=== PATIENT | male | born 1955 | race Caucasian/White ===

== ENCOUNTER 2017-11-27 07:24 | Emergency (ER) | payer BC ==
--- NOTE | 2017-11-27 09:06 | RAD ---
INDICATION: Fell from standing and hit chin. Pain LEFT-sided chin. COMPARISON: No relevant prior exams available on the [facility] for comparison. TECHNIQUE: Multidetector CT base of the skull through mandible without contrast. Multiplanar reformation. REPORT: Dental hardware artifact degrades image quality. Soft tissue edema/infiltrative hematoma at the LEFT buccal region and superficial to the LEFT body and inferior margin of the mandible with a few foci of loculated hematoma measuring less than 1 mL in volume. Unremarkable orbital contents. The orbital and maxillary sinus margins, zygomatic arches, lamina papyracea, base of the maxilla, pterygoid plates, and nasal bones are intact. The mandible is intact. Normal temporal mandibular joint alignment. Clear paranasal sinuses and hypoplastic mastoid air spaces. IMPRESSION: Superficial soft tissue injury LEFT aspect of face and lower jaw. Negative for fracture.
--- NOTE | 2017-11-27 09:15 | RAD ---
INDICATION: Trauma. COMPARISON: Comparison is made with a prior PET/CT study from September 30, 2017. TECHNIQUE: Contiguous axial sections were obtained beginning above the C7 vertebra and scanning through the T12 vertebra. Images were reconstructed in the sagittal and coronal planes. FINDINGS: The vertebra are in normal alignment. There is a mild chronic compression fracture of the superior endplate of the T11 vertebral body. No acute fracture is seen. There is mild diffuse degenerative disc disease. No significant spinal canal narrowing is seen in the dorsal spine. There is moderate degenerative disc disease at the C5-C6 and C6-C7 levels which are partially visualized on this study with mild to moderate spinal canal narrowing at those levels. There are several left renal calculi measuring up to 5 mm in size. No hydronephrosis is seen. IMPRESSION: 1. NO EVIDENCE FOR ACUTE FRACTURE. 2. MILD CHRONIC COMPRESSION FRACTURE OF THE SUPERIOR ENDPLATE OF THE T11 VERTEBRAL BODY. 3. MILD TO MODERATE DEGENERATIVE DISC DISEASE. 4. MULTIPLE LEFT RENAL CALCULI.
--- NOTE | 2017-11-27 09:29 | RAD ---
Indication: Numbness in arms and legs post fall. History of multiple myeloma. Comparison: September 30, 2017 PET/CT and June 19, [address] Technique: Noncontrast CT lumbar sacral spine. Multiplanar reformation. Report: Normal diameter abdominal aorta and visualized common iliac arteries with atherosclerotic calcification. Small nonobstructing LEFT renal stones. Simple cortical cyst upper pole LEFT kidney. Negative for spondylolysis or spondylolisthesis at any level. Mild anterior column superior endplate compression deformity at the T11 vertebral body without conspicuous cortical disruption or gross trabecular interruption or impaction to indicate an acute fracture. The deformity is new compared with the 2016 CT. Deformity of the L5 vertebral body most prominent at the RIGHT margin with severe central depression of both the superior and inferior endplates as well as trabecular rarefaction and coarse vertical trabecula is unchanged compared with the 2016 exam. Areas of cortical rarefaction are fat density without suggestion of infiltrative soft tissue density tumor. The appearance is most suggestive of a chronic osseous hemangioma with associated pathologic fracture without change. 4.9 cm AP by 2.6 cm transverse by 4.4 cm cephalocaudal geographic relative hyperdense region at the RIGHT iliac bone adjacent to the sacroiliac joint corresponds with a smaller sclerotic lesion and top normal focus of FDG uptake on February 28, 2018 PET/CT. T12-L1: Unremarkable disc level for age without acquired spinal stenosis. L1-L2: Unremarkable disc level for age without acquired spinal stenosis. L2-L3: Annular disc bulge and facet ligamentous hypertrophic arthropathy results in mild associated central canal stenosis and mild bilateral foraminal stenosis without significant change. L3-L4: Mild annular disc bulge and posterior element facet ligamentous hypertrophic arthropathy results in mild acquired central canal stenosis and moderate bilateral foraminal stenosis without significant change. L4-L5: Annular disc bulge and posterior element facet ligamentous hypertrophic arthropathy results in moderate acquired central canal stenosis and moderate bilateral foraminal stenosis without significant change. L5-S1: Annular disc bulge and facet ligamentous hypertrophic arthropathy results in mild acquired central canal stenosis and severe bilateral foraminal stenosis without significant change. IMPRESSION: 1. Negative for acute lumbar sacral spine fracture or traumatic malalignment. 2. Mild anterior column superior endplate compression deformity at the T11 vertebral body without conspicuous cortical disruption or gross trabecular interruption or impaction to indicate an acute fracture. 3. 4.9 cm AP by 2.6 cm transverse by 4.4 cm cephalocaudal geographic relative hyperdense region at the RIGHT iliac bone adjacent to the sacroiliac joint corresponds with a smaller sclerotic lesion and top normal focus of FDG uptake on February 28, 2018 PET/CT. Consider a bone scan for further assessment. 4. Multilevel degenerative spondylosis and posterior element hypertrophic osteoarthritis with resulting acquired central canal and foraminal stenosis as described level by level without significant interval change compared with June 19, 2016 exam.
[2017-11-27 10:30] VITALS: BP 129/71
--- NOTE | 2017-11-27 11:45 | ED ---
Varun Palacios Thomas, scribed for Colin Espinosa MD on 11/27/17 at 0913 . Head Injury - HPI Summary HPI Summary: The patient is a 62 year old male who had an accidental fall from standing this morning. He fell and hit the left side of his chin on a cart. He complains of left-sided chin pain and swelling. The patient denies new-onset back pain. Past medical history includes multiple myeloma. - History Of Current Complaint Chief Complaint: EDFacialInjury Stated Complaint: FALL Time Seen by Provider: 11/27/17 07:42 Hx Obtained From: Patient Mechanism Of Injury: Fall From A Standing Position Onset/Duration: Started Days Ago, Still Present Onset of Pain: Immediate Severity Currently: Moderate Severity Initially: Moderate Pain Intensity: 5 Pain Scale Used: 0-10 Numeric Location of Head Injury: Other: - left-sided chin Alleviating Factor(s): Other: - Nothing Associated Signs And Symptoms: Other: - Left-sided chin pain, swelling; NEGATIVE : new-onset back pain - Allergies/Home Medications Allergies/Adverse Reactions: Allergies Allergy/AdvReac Type Severity Reaction Status Date / Time Penicillins Allergy Severe Hives Verified 10/23/17 07:59 PMH/Surg Hx/FS Hx/Imm Hx Endocrine/Hematology History: Reports: Hx Diabetes - CONTROLLED WITH DIET Denies: Hx Anticoagulant Therapy Cardiovascular History: Denies: Hx Cardiac Arrest, Hx Hypertension, Hx Myocardial Infarction, Hx Pacemaker/ICD Respiratory History: Denies: Hx Asthma, Hx Chronic Obstructive Pulmonary Disease (COPD) GI History: Reports: Other GI Disorders - hernia Denies: Hx Gastroesophageal Reflux Disease History: Denies: Hx Chronic Renal Failure, Hx Kidney Stones, Hx Renal Disease Musculoskeletal History: Reports: Other Musculoskeletal History - lumbar disc herniation Sensory History: Reports: Hx Contacts or Glasses, Hx Glaucoma - uses medicated eye drops, Hx Hearing Problem Denies: Hx Hearing Aid Opthamlomology History: Reports: Hx Contacts or Glasses, Hx Glaucoma - uses medicated eye drops Neurological History: 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 Denies: Hx Peripheral Neuropathy Psychiatric History: Denies: Hx Panic Disorder - Cancer History Cancer Type, 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 - Surgical History Surgery Procedure, Year, and Place: TONSILS, RT KNEE SURGERY WITH HARDWARE Infectious Disease History: No Infectious Disease History: Denies: Traveled Outside the [place] in Last 30 Days - Family History Known Family History: Positive: Diabetes - Social History Alcohol Use: Occasionally Substance Use Type: Reports: None Smoking Status (MU): Never Smoked Tobacco Review of Systems Negative: Fever Positive: Other - Left-sided chin pain, swelling; NEGATIVE: new-onset back pain All Other Systems Reviewed And Are Negative: Yes Physical Exam - Summary Physical Exam Summary: Appearance: The patient is well-nourished in no acute distress and in no acute pain. Skin: The skin is warm and dry and skin color reflects adequate perfusion. HEENT: He has some swelling and tenderness over the mid mandible on the left. The jaw moves well without any click or pop. The pupils are equal and reactive. The conjunctivae are clear and without drainage. Nares are patent and without drainage. Mouth reveals moist mucous membranes and the throat is without erythema and exudate. The external ears are intact. The ear canals are patent and without drainage. The tympanic membranes are intact. Neck: the neck is supple with full range of motion and non-tender. There are no carotid bruits. There is no neck vein distension. Respiratory: Chest is non-tender. Lungs are clear to auscultation and breath sounds are symmetrical and equal. Cardiovascular: Heart is regular rate and rhythm. There is no murmur or rub auscultated. There is no peripheral edema and pulses are symmetrical and equal. Abdomen: The abdomen is soft and non-tender. There are normal bowel sounds heard in all four quadrants and there is no organomegaly palpated. Musculoskeletal: There is no back tenderness noted. Extremities are non-tender with full range of motion. There is good capillary refill. There is no peripheral edema or calf tenderness elicited. Neurological: Patient is alert and oriented to person, place and time. The patient has symmetrical motor strength in all four extremities. Cranial nerves are grossly intact. Deep tendon reflexes are symmetrical and equal in all four extremities. Psychiatric: The patient has an appropriate affect and does not exhibit any anxiety or depression. Triage Information Reviewed: Yes Vital Signs On Initial Exam: Initial Vitals Temp Pulse Resp BP Pulse Ox 98.6 F 64 18 117/57 97 11/27/17 07:32 11/27/17 07:32 11/27/17 07:32 11/27/17 07:32 11/27/17 07:32 Vital Signs Reviewed: Yes Diagnostics - Vital Signs Vital Signs Temp Pulse Resp BP Pulse Ox 03/22/18 07:32 98.6 F 64 18 117/57 97 - Laboratory Lab Statement: Any lab studies that have been ordered have been reviewed, and results considered in the medical decision making process. - CT CT Maxillofacial CT Interpretation: No Acute Changes - Superficial soft tissue injury LEFT aspect of face and lower jaw. Negative for fracture. Dr. Espinosa has reviewed this report. CT Interpretation Completed By: Radiologist CT Thoracic Spine CT Interpretation: No Acute Changes - 1. NO EVIDENCE FOR ACUTE FRACTURE. 2. MILD CHRONIC COMPRESSION FRACTURE OF THE SUPERIOR ENDPLATE OF THE T11 VERTEBRAL BODY. 3. MILD TO MODERATE DEGENERATIVE DISC DISEASE. 4. MULTIPLE LEFT RENAL CALCULI. Dr. Espinosa has reviewed this report. CT Interpretation Completed By: Radiologist CT Lumbar Spine CT Interpretation: No Acute Changes - 1. Negative for acute lumbar sacral spine fracture or traumatic malalignment. 2. Mild anterior column superior endplate compression deformity at the T11 vertebral body without conspicuous cortical disruption or gross trabecular interruption or impaction to indicate an acute fracture. 3. 4.9 cm AP by 2.6 cm transverse by 4.4 cm cephalocaudal geographic relative hyperdense region at the RIGHT iliac bone adjacent to the sacroiliac joint corresponds with a smaller sclerotic lesion and top normal focus of FDG uptake on February 28, 2018 PET/CT. Consider a bone scan for further assessment. 4. Multilevel degenerative spondylosis and posterior element hypertrophic osteoarthritis with resulting acquired central canal and foraminal stenosis as described level by level without significant interval change compared with June 19, [address] Espinosa has reviewed this report. CT Interpretation Completed By: Radiologist Re-Evaluation - Re-Evaluation First Eval Re-Evaluation Time: 10:12 Comment: Discussed results. Patient will be discharged. Head Injury Course/Dx Course Of Treatment: Mr. Ni suffered what sounds like a mechanical fall this AM. He hit his chin and denies LOC. He does have chronic back pain from his multiple myeloma and is very concerned that he also injured his back although he acknowledges there is no new pain. His imaging is negative for bony injury although there is a bony lesion that looks worse. He will need to F/U with Dr. Vee. - Diagnoses Provider Diagnoses: Facial contusion Discharge - Sign-Out/Discharge Documenting (check all that apply): Discharge - Discharge Plan Condition: Stable Disposition: HOME Patient Education Materials: Facial Contusion (ED) Referrals: Martínez Vee MD [Medical Doctor] - 3 Days Additional Instructions: Follow up with Dr. Vee in three days. Return to the emergency department for any new or worsening symptoms. - Billing Disposition and Condition Condition: STABLE Disposition: HOME The documentation as recorded by the Varun may Thomas accurately reflects the service I personally performed and the decisions made by me, Colin Espinosa MD.
== END 2017-11-27 10:30 | disposition home or self-care (01) ==
LOC: ED 07:24
DX: S00.83XA Contusion of other part of head, initial encounter (principal); G50.1 Atypical facial pain; W18.00XA Striking against unspecified object with subsequent fall, initial encounter; Y92.9 Unspecified place or not applicable
CPT/HCPCS: 70486; 72128; 72131; 99281

== ENCOUNTER 2018-01-15 09:43 | Emergency (ER) | payer BC ==
--- OUTSIDE RECORDS SUMMARY | 2018-01-15 09:50 | XMS REPORT ---
:1955 External Reference #:[id number] Author Organization [facility] Address [address] [place] [address] Phone [phone] Care Team Providers Name Role Phone Canelo Lynch M.D. Primary Care Physician Unavailable Payers Type Date Identification Numbers Payment Provider Subscriber Commercial Policy Number: [id number] BS [employer] Rita Ni PayID: [id number] [address] [address] [place] [address] Problems Date Description Provider Status Onset: Type 2 diabetes mellitus Active Onset: 01/12/2015 Primary open angle glaucoma Bird rConin M.D. Active Onset: 01/12/2015 Nuclear senile cataract Bird Cronin M.D. Active Onset: 01/12/2015 Severe / Advanced / End Stage Glaucoma Bird Cronin M.D. Active Onset: 09/21/2015 Combined form of senile cataract Bird Cronin M.D. 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 Active Onset: 04/15/2016 Multiple myeloma Bird Cronin M.D. Active Note: 04/23 Onset: Neoplasm of uncertain behavior of Active cheek Onset: 11/07/2016 Primary open angle glaucoma of left Bird Cronin M.D. Active eye Onset: 11/07/2016 Primary open angle glaucoma of right Bird Cronin M.D. Active eye Family History Date Family Member(s) Problem(s) Comments Father Unknown Mother Glaucoma First Sister Glaucoma Social History Type Date Description Comments Marital Status Legal Status: Occupation [employer] ETOH Use Occasionally consumes alcohol Recreational Drug Use Never Used Drugs Smoking Patient is a former smoker Quit 1969 Daily Caffeine Consumes on average 3 cups of regular coffee per day Allergies, Adverse Reactions, Alerts Date Description Reaction Status Severity Comments 01/11/2015 Penicillin active Medications Medication Date Status Form Strength Qnty SIG Indications Ordering Provider Travatan Z 01/11/ Active Solution 0.004% 7.5ml instill Bird Bradley one drop Roseanne, into each M.DJessie eye once daily at bedtime Dexamethasone 00/ Active Tablets 4mg Garbo, Cassie Soliz M.D. Oxycodone HCL / Active Tablets 10mg Unknown 0000 Oxycontin / Active Tab ER 12H 30mg Unknown 0000 Abuse-Det Furosemide / Active Tablets 20mg Garbo Martínez Sellers Valacyclovir / Active Tablets 500mg Garbo, HCL Martínez Sellers Duloxetine HCL / Active Caps DR 30mg Unknown 0000 Part Ondansetron HCL / Active Tablets 4mg Unknown 0000 Revlimid / Active Capsules 10mg Garbo, Cassie Soliz M.D. Acyclovir / Active Tablets 400mg Unknown 0000 Sulfamethoxazol / Active Tablets 800-160mg Garbo, e/Trimethoprim Martínez ROA M.D. Methadone HCL / Active Tablets 10mg Garbo, Martínez Sellers Vitamin C ER 00// Hx Capsules 500mg Unknown 0000 - ER 2015 Multivitamins /00/ Hx Capsules Unknown 0000 - 2015 Calcium + D / Hx Chewtabs 500-1000-4 Unknown 0000 - 0mg-Unt-mc 2015 Fish Oil / Hx Capsules 1000mg christie Landry-Chio 0000 - times a Arleo, day by Verito 2016 mouth Tylenol 8 Hour /00/ Hx Tablets ER 650mg Unknown 0000 - 2015 Coq-10 / Hx Capsules 10mg Unknown 0000 - 2015 Results Description No Information Procedures Date CPT Code Description Status 04/14/2017 62718 Est Patient Intermediate Exam Completed 11/07/2016 05726 Scanning Computerized Ophthalmic Diagnostic Imag Completed Posterior Seg On 11/07/2016 88043 Visual Field Exam Extended Completed 11/07/2016 72656 Est Patient Comprehensive Exam Completed 04/15/2016 48551 Scanning Computerized Opthalmic Diagnostic Posterior Completed Seg Retina 04/15/2016 03923 Visual Field Exam Extended Completed 04/15/2016 33472 Determination Of Refractive State Completed 04/15/2016 79021 Est Patient Comprehensive Exam Completed 09/21/2015 82181 Scanning Computerized Ophthalmic Diagnostic Imag Completed Posterior Seg On 09/21/2015 39199 Est Patient Intermediate Exam Completed 01/12/2015 05437 Visual Field Exam Extended Completed 01/12/2015 42528 Gonioscopy Completed 01/12/2015 52539 Est Patient Intermediate Exam Completed 07/15/2014 16112 Est Patient Comprehensive Exam Completed 07/15/2014 29118 Visual Field Exam Extended Completed 07/15/2014 84295 Scanning Computerized Opthalmic Diagnostic Posterior Completed Seg Retina 11/11/2013 70675 Est Patient Intermediate Exam Completed 05/14/2013 53347 Scanning Computerized Opthalmic Diagnostic Posterior Completed Seg Retina 05/14/2013 79000 Est Patient Intermediate Exam Completed 05/04/2013 84548 Patient No Show For Appt Completed 04/13/2013 87687 Patient No Show For Appt Completed 02/12/2013 57632 Visual Field Exam Extended Completed 10/13/2012 15126 Est Patient Comprehensive Exam Completed 10/13/2012 86570 Scanning Computerized Opthalmic Diagnostic Posterior Completed Seg Retina 01/20/2012 95256 Est Patient Intermediate Exam Completed 10/22/2011 85050 Scanning Computerized Opthalmic Diagnostic Posterior Completed Seg Retina 10/22/2011 66624 Est Patient Intermediate Exam Completed 09/16/2011 00067 Fluorescein Angiography Completed 09/16/2011 45819 Est Patient Intermediate Exam Completed 07/29/2011 90987 Fluorescein Angiography Completed 07/22/2011 77319 Est Patient Comprehensive Exam Completed 07/22/2011 11440 Scanning Computerized Opthalmic Diagnostic Posterior Completed Seg Retina 01/17/2011 08169 Scanning Computerized Ophthalmic Diagnostic Imag Completed Posterior Seg On 01/17/2011 24541 Visual Field Exam Extended Completed 01/17/2011 84093 Est Patient Intermediate Exam Completed 07/17/2010 21516 Determination Of Refractive State Completed 07/17/2010 11092 Est Patient Comprehensive Exam Completed 02/02/2010 78138 Visual Field Exam Extended Completed 11/07/2009 45566 Est Patient Intermediate Exam Completed 11/07/2009 06882 Scanning Laser W/Interp And Report Completed 05/04/2009 71214 Fundus Photography With Interpretation And Report Completed 05/04/2009 72557 Est Patient Intermediate Exam Completed 01/02/2009 73402 Scanning Laser W/Interp And Report Completed 01/02/2009 72765 Determination Of Refractive State Completed 01/02/2009 31821 Est Patient Comprehensive Exam Completed 12/11/2007 55627 Scanning Laser W/Interp And Report Completed 12/11/2007 00517 Visual Field Exam Extended Completed 11/25/2007 45297 Est Patient Comprehensive Exam Completed 11/25/2007 14257 Determination Of Refractive State Completed 11/25/2007 66341 Fundus Photography With Interpretation And Report Completed 04/10/2005 27504 Patient No Show For Appt Completed 02/25/2005 40890 Est Patient Intermediate Exam Completed 07/13/2004 70784 Patient No Show For Appt Completed 07/06/2004 32151 Rescheduled Appointment Completed 05/25/2004 06252 Trabeculoplasty By Laser Surgery Completed 05/23/2004 18295 Rescheduled Appointment Completed 05/11/2004 58288 Visual Field Exam Intermediate Completed 05/11/2004 62882 Est Patient Intermediate Exam Completed 04/17/2004 93252 Fundus Photography With Interpretation And Report Completed 04/17/2004 70712 Scanning Laser W/Interp And Report Completed 04/17/2004 05738 Scanning Laser W/Interp And Report Completed 04/17/2004 37973 Gonioscopy Completed 04/17/2004 59183 Pachymetry Completed Encounters Type Date Location Provider CPT E/M Dx Office Visit 12/11/2007 10:15a Bird Cronin MD, Bird Cronin, 18495 365.11 carli Sellers Office Visit 04/17/2004 10:15a Bird Cronin MD, Bird Cronin, 13549 365.01 carli Sellers Plan of Care 01/13/2018 - Bird Cronin M.D.H40.1123 Primary open-angle glaucoma, left eye , severe stageComments:Smoking can increase the risk of developing or worsening any eye related disease, as well as affect your overall health. If you are a smoker, we strongly recommend that you quit.If you are not a smoker, we strongly recommend that you do not start. Your glaucoma is stable at this time in your left eye.Your eye pressure is within an acceptable range, and your testing does not show any further deterioration at this time. Please continue your treatment as directed and keep follow up appointments.Follow up:6 Month Follow Up IOP Check OCT ON Visual Field 30-2 OD 10-2 OS At your next visit, we are not planning to dilate your eyes. However, if you have any changes in your vision or new symptoms, there are certain situations that require us to dilate your eyes. If Dr. Cronin requests any additional testing,that may require extra time. If you have any questions before your next appointment, please call ouroffice at .H40.1111 Primary open-angle glaucoma, right eye, mild stageComments:Your Glaucoma is stable at this time in your right eye. Your eye pressure is within an acceptable range, and your testing does not show any further deterioration at this time. Please continue your treatment as directed and keep follow up appointments.D31.31 Benign neoplasm of right [id number] Combined forms of age-related cataract, bilateralComments:You have been diagnosed with cataracts. If you are happy with your vision as it is now, then we willsee you at your next scheduled appointment. If you feel like your vision is getting worse before your scheduled appointment, please call Laney Lin at [phone].E11.9 Type 2 diabetes mellitus without complicationsComments:You have diabetes. I do not detect any changes in both of your retinas from diabetes at this time. Proper control of your diabetes is important for the health of your eyes. Changes in your eyes from diabetes can happen without symptoms, so it is important that you have your eyes examined. Dr. Cronin has sent a report to your primary care doctor, letting them know there is no damage from the Diabetes in your eyes.
[2018-01-15] MEDS ORDERED: Meclizine TAB* 12.5 MG PO ONE (10:42)
[2018-01-15] MEDS ORDERED: NS 0.9% 500 ML* 500 ML IV ONE (10:43)
[2018-01-15 11:32] LABS: ABS Basophils 0.1 10^3/ul (0-0.2); ABS Eosinophils 0.2 10^3/ul (0-0.6); ABS Lymphocytes 1.6 10^3/ul (1.0-4.8); ABS Neutrophils 4.4 10^3/ul (1.5-7.7); ABS Nucleated RBC 0 10^3/ul; Eosinophil % 2.2 % (0-6); Hematocrit 40 % (42-52); Hemoglobin 13.7 g/dl (14.0-18.0); Lymphocyte % 21.9 % (25-47); Mean Corpuscular HGB Conc 34 g/dl (31-36); Mean Corpuscular Hemoglobin 31 pg (27-31); Mean Corpuscular Volume 90 fL (80-94); Mean Platelet Volume 6.9 um3 (7.4-10.4); Nucleated Red Blood Cells % 0.1; Platelet Count 231 10^3/ul (150-450); Red Blood Count 4.47 10^6/ul (4.0-5.4); Red Cell Distribution Width 16 % (10.5-15); White Blood Count 7.3 10^3/ul (3.5-10.8)
--- NOTE | 2018-01-15 11:34 | RAD ---
INDICATION: Dizziness. COMPARISON: Comparison is made with prior chest x-ray study from May 20, 2016. TECHNIQUE: A portable view of the chest was obtained. FINDINGS: Cardiac and mediastinal contours appear to be within normal limits. The lungs are clear. No pleural effusion is seen. IMPRESSION: NO EVIDENCE FOR ACUTE DISEASE.
[2018-01-15] MEDS ORDERED: Meclizine TAB* 12.5 MG ONE (11:44)
[2018-01-15 11:51] LABS: EGFR Non-African American 104.3 (>60)
--- NOTE | 2018-01-15 11:55 | RAD ---
Indication: Vertigo. CT of the brain was performed without IV contrast. Ventricular structures are midline. No midline shift is noted. The extra-axial spaces are unremarkable. There is no evidence of intracranial mass or hemorrhage. No other high or low density lesions identified. Mastoid air cells and paranasal sinuses are otherwise unremarkable. IMPRESSION: There is no evidence of intracranial mass or hemorrhage noted.
[2018-01-15] MEDS ORDERED: Acetaminophen TAB* 325 MG PO ONE (12:23)
[2018-01-15] MEDS ORDERED: Iodixanol* (CONTRAST) 320 MG/ML 100 ML SDV IV ONE (13:21)
[2018-01-15] MEDS: Ibuprofen TAB* 400 MG PO ONE ×2 (13:42→15:26)
--- NOTE | 2018-01-15 14:28 | RAD ---
CPT II: CPT II Codes: 3100F INDICATION: 2 days of dizziness COMPARISON: Noncontrast CT of the brain from the same day does not reveal any acute intracranial findings. TECHNIQUE: A CT angiogram of the head and neck was performed with 80 cc of Visipaque 320. Contiguous axial sections were obtained from the thoracic inlet through the [place]. Images were reconstructed in the sagittal, coronal planes and in a 3-D volume rendered format. The distal cervical internal carotid artery diameter is used as the denominater for stenosis measurement. CTA NECK: The common and internal carotid arteries are patent without hemodynamically significant stenosis. Right: Below the carotid bifurcation the common carotid artery measures 7 mm in diameter. Beyond the carotid bifurcation the internal carotid artery also measures 7 mm in diameter yielding 0% degree stenosis. Left: Below the carotid bifurcation the common carotid artery measures 7 mm in diameter. Beyond the carotid bifurcation the internal carotid artery also measures 7 mm in diameter yielding 0% degree stenosis. The vertebral arteries are patent without gross abnormality. CTA of the brain: The internal carotid, anterior and middle cerebral arteries appear are patent without high grade stenosis or occlusion. The vertebral, basilar and posterior cerebral arteries appear patent without high grade stenosis or occlusion. Bilaterally the posterior communicating arteries are either extremely diminutive or absent. Branching off of the right vertebral artery is a normal-appearing right posterior inferior cerebellar artery no such artery is seen branching off of the left vertebral artery though more distally branches of the posterior inferior cerebellar artery are seen filling perhaps by collateralized flow. No focal luminal filling defect, aneurysm or vascular malformation is seen. IMPRESSION: 1. No significant stenosis at either carotid artery. 2. 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 3. Incomplete [place] of [place].
[2018-01-15 15:17] VITALS: BP 133/74
--- NOTE | 2018-01-15 15:27 | RAD ---
Indication: Dizziness with onset while mowing the lawn yesterday with a push mower. History of multiple myeloma. Comparison: CT brain of the same date. Technique: Oct[place] 1.5 Nicki [id number] with GEM suite. Noncontrast MRI brain. Report: Negative for restricted diffusion to indicate acute or subacute ischemia. Susceptibility series is negative for stigmata of hemosiderin deposition to indicate previous hemorrhage. Unremarkable cerebral sulci, ventricles, and basal cisterns. Bilateral T2 FLAIR hyperintense lesions in the periventricular regions of the cerebral hemispheres oriented perpendicular to the corpus callosum. Negative for corresponding mass effect. No focal lesions evident at the posterior fossa. No intra or extra-axial fluid collection evident. Unremarkable cerebellar pontine angles and internal auditory canals within limits of routine brain MRI. Preserved intracranial flow-voids. Unremarkable orbital contents. Negative for suspicious calvarial or skull base lesions. Grossly clear paranasal sinuses. Variant hypoplastic bilateral mastoid air spaces without gross effusions. Unremarkable scalp. IMPRESSION: 1. No evidence for acute or subacute ischemia. 2. White matter T2 FLAIR hyperintense lesions given morphology oriented perpendicular to the corpus callosum are most suspicious for potential demyelinating disease however the finding is not entirely specific and chronic small vessel ischemic disease would be the primary differential. 3. Negative for mass effect.
--- NOTE | 2018-01-15 20:29 | CONS ---
CC: Dr. Vee * NEUROLOGY CONSULTATION: DATE OF CONSULT: 01/15/18 - EMERGENCY DEPT. LOCATION: He is in the emergency room. REFERRING PHYSICIAN: Dr. Connell. CHIEF COMPLAINT: Dizziness, headache. HISTORY OF PRESENT ILLNESS: Del Ni is a 62-year-old man with a history of multiple myeloma, status post bone marrow transplant, who yesterday started to feel somewhat dizzy. He did not think too much of it first and went ahead and mowed the lawn. The dizziness worsened over time and by the evening he felt pretty dizzy. He has not had any nausea with it, but he did not have much of an appetite. He felt that dizziness was worse with any type of head movement. It did not matter which direction. He felt a little bit unstable with the dizziness. There was no associated numbness, head pain at that time, or change in hearing, which is poor. Today, he started to get a bad headache after he presented to the emergency room. He gets occasional bad headaches where he has to take something soon and lie down or at least be quiet or it gets intense and is hard to get rid of. He never has any visual changes with them. He is on Revlimid for about 2 years. He has never had a clotting event. He had lower extremity vascular studies on 07/04/17 because of leg edema with negative lower extremity studies for deep vein thrombosis. He does take 1 aspirin 81 mg per day. He has not noticed any change in vision, which is poor because of glaucoma. There has been no recent change in medications. He has chronic numbness in his arms and legs attribute to prior chemotherapies. PAST MEDICAL HISTORY: Notable for multiple myeloma going back several years. He underwent a bone marrow transplant after chemotherapy. He has been on Revlimid for about 2 years. He was diagnosed with myeloma in January of 2016 when he presented with rib pain and he had a lytic lesion. He has a history of diabetes, which has been diet controlled since he has lost over 100 pounds. He had hypertension in the past. No history of heart disease. 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 MEDICATIONS: At home, consist of: 1. Revlimid 10 mg p.o. q. day. 2. Oxycodone 30 mg p.o. t.i.d. 3. Multiple drops for glaucoma. 4. Bactrim double strength 1 p.o. b.i.d. 5. Oxycodone 10 mg p.o. q.4 hours as needed for pain. 6. Multivitamins. 7. Aspirin 81 mg p.o. q. day. 8. Vitamin D 2000 units p.o. q. day. 9. Acyclovir 400 mg p.o. b.i.d. ALLERGIES: He is allergic to PENICILLIN. FAMILY HISTORY: Notable for migraines, I believe, in one of his sons. REVIEW OF SYSTEMS: Notable for some chills just today in the emergency room. He has not had any sweats or fevers. No recent weight loss. He has not had recent colds or sore throats or gastrointestinal problems. No falls or head injuries. PHYSICAL EXAM: He is well nourished and well hydrated. Temperature 98.3 by temporal scan, blood pressure 118/75, heart rate is in the 60s and sinus on the monitor. Respiratory rate is 18 and oxygen saturation is 99% on room air. Skin is warm and dry. Neck is supple. Heart is in a regular rate and rhythm without murmurs. Carotid pulses are symmetrical and there are no cervical bruits. I did not palpate any cervical adenopathy. Oral mucosa is moist and no erythema. He has a pretty severe bilateral lower extremity edema. Neurological Exam: Pupils are quite small, about 2.5 mm, reacting to light to about 2 mm. I can just see his optic discs and they appear sharp bilaterally. Visual alba are full to confrontation. Eye movements are normal, no nystagmus. Facial sensation is to light touch is symmetric. Facial musculature is notable for synkinesis of the left facial musculature. Neck muscle bulk and strength is intact. Hearing is intact to tuning fork and Petersen's test is midline. Motor exam reveals normal muscle tones in the limbs proximally and distally. There is pain with touching the lower extremities, which are very edematous and hypersensitive. He has good strength proximally in the upper and lower extremities. Distal strength seems maintained as well. He has mild loss of vibratory sense in the hands. He is areflexic. Xizhwg-hu-[id number] maneuver is normal bilaterally. Finger taps are normal bilaterally. Bqvp-[id number]-[id number] maneuver is normal bilaterally. I was able to stand him and he has little bit of a wide base and feels dizzy. I did not walk him after that. He is alert and oriented to person, place, and time. He is a good historian with intact recent and remote memory. Attention, concentration, and fund of knowledge are all adequate and language is fluent. DIAGNOSTIC STUDIES/LAB DATA: Includes a CT of the brain, which I reviewed and which appears normal. Chest x-ray is interpreted as a normal chest x-ray. EKG shows sinus rhythm with a right bundle branch block pattern. CBC notable for white blood cell count 7.3, hemoglobin 13.7, platelet count 231, 000. Chemistry profile notable for sodium of 138, glucose 127, otherwise a normal chemistry profile. Troponin is 0. IMPRESSION AND PLAN: Impression is that of dizziness and headache worrisome for central nervous system process. He is at risk for thrombotic events and I think he needs a CT angiogram and CT venogram of his head. I also recommended MRI of the brain to look for evidence of an infarction. He is on aspirin and his labs seem to be okay and he does not have a fever, so I think at this point , I would just recommend the imaging. If the imaging is negative and he otherwise does not develop new signs or symptoms, then I think he could just be treated symptomatically for presumptive peripheral vestibular dysfunction, likely viral. If symptoms progress over time or if he develops new symptoms, consideration for a lumbar puncture for cytology would need to be brought into the discussion. I will follow him up after the imaging. [id number]/CPS #: [id number] DARRYL
--- NOTE | 2018-01-16 07:41 | ED ---
Bernardino Palacios Gabriel scribed for Dalton Connell MD on 01/15/18 at 1028 . Dizziness - HPI Summary HPI Summary: This patient is a 62 year old M presenting to [facility] accompanied by his family with a chief complaint of dizziness that began yesterday before he mowed the lawn. The patient rates the pain 4/10 in severity. Symptoms aggravated by movement. Currently he has no dizziness but he does intermittently have it at rest. Patient reports LE edema and numbness, left sided CP, and trouble ambulating. 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 He states the medication he is on now makes it so if he is standing and closes his eyes he will fall. - History Of Current Complaint Chief Complaint: EDDizziness Stated Complaint: DIZZINESS-2 DAYS Time Seen by Provider: 01/15/18 10:17 Hx Obtained From: Patient Onset/Duration: Suddenly Timing: Constant Severity Initially: Moderate Severity Currently: Moderate - Allergies/Home Medications Allergies/Adverse Reactions: Allergies Allergy/AdvReac Type Severity Reaction Status Date / Time Penicillins Allergy Severe Hives Verified 10/23/17 07:59 Home Medications: Home Medications Acyclovir* [Zovirax 400 MG TAB*] 400 mg PO BID 01/15/18 [History Confirmed 01/15] Ascorbic Acid TAB* [Vitamin C TAB*] 500 mg PO DAILY 01/15/18 [History Confirmed 01/15/18] Cholecalciferol TAB* [Vitamin D TAB*] 2,000 units PO DAILY 01/15/18 [History Confirmed 01/15/18] Furosemide TAB* [Lasix TAB*] 20 mg PO EVERY OTHER DAY 01/15/18 [History Confirmed 01/15/18] Lenalidomide(NF) [Revlimid (NF)] 10 mg PO DAILY 01/15/18 [History Confirmed 06/25] Multivitamins/Minerals TAB* [Theragran/minerals TAB*] 1 tab PO DAILY 01/15/18 [ History Confirmed 01/15/18] Travoprost Z 0.004% OPHTH (NF) [Travatan Z 0.004% OPTH (NF)] 1 drop BOTH EYES DAILY 01/15/18 [History Confirmed 01/15/18] oxyCODONE SR TAB(*) [Oxycontin 10 mg (*)] 30 mg PO TID 01/15/18 [History Confirmed 01/15/18] PMH/Surg Hx/FS Hx/Imm Hx Endocrine/Hematology History: Reports: Hx Diabetes - CONTROLLED WITH DIET Denies: Hx Anticoagulant Therapy Cardiovascular History: Denies: Hx Cardiac Arrest, Hx Hypertension, Hx Myocardial Infarction, Hx Pacemaker/ICD Respiratory History: Denies: Hx Asthma, Hx Chronic Obstructive Pulmonary Disease (COPD) GI History: Reports: Other GI Disorders - hernia Denies: Hx Gastroesophageal Reflux Disease History: Denies: Hx Chronic Renal Failure, Hx Kidney Stones, Hx Renal Disease Musculoskeletal History: Reports: Other Musculoskeletal History - lumbar disc herniation Sensory History: Reports: Hx Contacts or Glasses, Hx Glaucoma - uses medicated eye drops, Hx Hearing Problem Denies: Hx Hearing Aid Opthamlomology History: Reports: Hx Contacts or Glasses, Hx Glaucoma - uses medicated eye drops Neurological History: 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 Denies: Hx Peripheral Neuropathy Psychiatric History: Denies: Hx Panic Disorder - Cancer History Cancer Type, 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 - Surgical History Surgery Procedure, Year, and Place: TONSILS, RT KNEE SURGERY WITH HARDWARE Infectious Disease History: No Infectious Disease History: Denies: Traveled Outside the [place] in Last 30 Days - Family History Known Family History: Positive: Diabetes - Social History Lives: With Family Alcohol Use: Occasionally Substance Use Type: Reports: None Smoking Status (MU): Never Smoked Tobacco Review of Systems Positive: Other - trouble ambulating . Negative: Fever, Chills Negative: Erythema Negative: Sore Throat Positive: Chest Pain Negative: Shortness Of Breath, Cough Negative: Abdominal Pain, Vomiting, Nausea Negative: dysuria, hematuria Positive: Edema - LE edema . Negative: Myalgia Neurological: Other - dizziness Positive: Numbness - bi lat LE All Other Systems Reviewed And Are Negative: Yes Physical Exam - Summary Physical Exam Summary: Constitutional: Well-developed, Well-nourished, Alert. (-) Distressed Skin: Warm, Dry HENT: Normocephalic; Atraumatic, heather hallpiketest and supine roll test are both negative, bilateral TMs are scared, Eyes: Conjunctiva normal Neck: Musculoskeletal ROM normal neck. (-) JVD, (-) Stridor, (-) Tracheal deviation Cardio: Rhythm regular, rate normal, Heart sounds normal; Intact distal pulses; The pedal pulses are 2+ and symmetric. Radial pulses are 2+ and symmetric. (-) Murmur Pulmonary/Chest wall: Effort normal. (-) Respiratory distress, (-) Wheezes, (-) Rales Abd: Soft, (-) Tenderness, (-) Distension, (-) Guarding, (-) Rebound Musculoskeletal: (+) Edema Lymph: (-) Cervical adenopathy Neuro: Alert, Oriented x3 Psych: Mood and affect Normal Triage Information Reviewed: Yes Vital Signs On Initial Exam: Initial Vitals Temp Pulse Resp BP Pulse Ox 98.3 F 56 16 131/67 99 01/15/18 09:44 01/15/18 09:44 01/15/18 09:44 01/15/18 09:44 01/15/18 09:44 Vital Signs Reviewed: Yes Diagnostics - Vital Signs Vital Signs Temp Pulse Resp BP Pulse Ox 01/15/18 10:11 64 18 97 01/15/18 10:10 17 118/75 01/15/18 09:44 98.3 F 56 16 131/67 99 - Laboratory Result Diagrams: 01/15/18 11:17 01/15/18 11:19 Lab Statement: Any lab studies that have been ordered have been reviewed, and results considered in the medical decision making process. - Radiology CXR Radiology Interpretation Completed By: Radiologist - no evidence for acute disease ED physician has reviewed this radiology report. - CT CT Brain CT Interpretation Completed By: Radiologist - There is no evidence of intracranial mass or hemorrhage noted. ED physician has reviewed this radiology report. CTA Head CT Interpretation Completed By: Radiologist - 1. No significant stenosis at either carotid artery. 2. 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 3. Incomplete [place]. Dr. Connell has reviewed this report. MRI BRain CT Interpretation Completed By: Radiologist - 1. No evidence for acute or subacute ischemia. 2. White matter T2 FLAIR hyperintense lesions given morphology oriented perpendicular to the corpus callosum are most suspicious for potential demyelinating disease however the finding is not entirely specific and chronic small vessel ischemic disease would be the primary differential. 3. Negative for mass effect. Dr. Connell have reviewed this report. - EKG 1022 Cardiac Rate: NL EKG Rhythm: Sinus Rhythm - at 64 BPM EKG Interpretation: RBBB, no STEMI Re-Evaluation - Re-Evaluation First Eval Re-Evaluation Time: 14:49 Change: Unchanged Comment: Pt states onset was 1200 yesterday. Second Eval Re-Evaluation Time: 15:59 Change: Improved Comment: The patient is feeling better and is ambulating. Dizzy Course/Dx - Course Assessment/Plan: This patient is a 62 year old M presenting to [facility] accompanied by his family with a chief complaint of dizziness that began yesterday before he mowed the lawn. The patient rates the pain 4/10 in severity. Symptoms aggravated by movement. Currently he has no dizziness but he does intermittently have it at rest. Patient reports LE edema and numbness, left sided CP, and trouble ambulating. 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 He states the medication he is on now makes it so if he is standing and closes his eyes he will fall. An EKG reveals RBBB. CXR reveals, per radiologist, no evidence for acute disease. CT Brain reveals, per radiologist, There is no evidence of intracranial mass or hemorrhage noted. CTA Head reveals, 1. No significant stenosis at either carotid artery. 2. 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 thrombotic occlusion or congenital absence. 3. Incomplete [place]. MRI Brain reveals, 1. No evidence for acute or subacute ischemia. 2. White matter T2 FLAIR hyperintense lesions given morphology oriented perpendicular to. the corpus callosum are most suspicious for potential demyelinating disease however the. finding is not entirely specific and chronic small vessel ischemic disease would be the. primary differential. 3. Negative for mass effect. Test results with no significant abnormalities. In the ED course the patient was given IV fluids, tylenol, and meclizine. 1209 We discussed patient care with Dr Stephens and they have agreed to come see the patient. After he saw the pt he recommended getting a CTA, CTV, and MRI. 14:00 Additionally he stated that that if the MRI is negative he can be discharged. 13:14 We discussed patient care with Dr. West and she recommended a medicine admission. Patient will be discharged and follow up with Dr Stephens. The patient is agreeable with this plan. - Diagnoses Provider Diagnoses: Vertigo Discharge - Sign-Out/Discharge Documenting (check all that apply): Discharge/Admit/Transfer - Discharge Plan Condition: Stable Disposition: HOME Prescriptions: Meclizine TAB* [Antivert 12.5 TAB*] 25 mg PO TID PRN #12 tab PRN Reason: Vertigo Patient Education Materials: Vertigo (ED) Referrals: Canelo Lynch MD [Primary Care Provider] - Candelario Stephens MD [Medical Doctor] - Additional Instructions: Please follow up with your primary and Dr. Stephens in 3-5 days. RETURN TO THE EMERGENCY DEPARTMENT FOR CHANGING OR WORSENING SYMPTOMS The documentation as recorded by the Bernardino may Gabriel accurately reflects the service I personally performed and the decisions made by me, Dalton Connell MD.
== END 2018-01-15 16:12 | disposition home or self-care (01) ==
LOC: ED 09:43
DX: R42 Dizziness and giddiness (principal); R51 Headache; C90.00 Multiple myeloma not having achieved remission; I45.10 Unspecified right bundle-branch block; R60.0 Localized edema; R20.0 Anesthesia of skin; R07.9 Chest pain, unspecified; G62.9 Polyneuropathy, unspecified; Z79.82 Long term (current) use of aspirin; Z88.0 Allergy status to penicillin
CPT/HCPCS: 36415; 70450; 70496; 70498; 70551; 71045; 80053; 83605; 84484; 85025; 93005; 99283; A9270-GY; Q9967

== ENCOUNTER 2018-02-17 17:03 | Emergency (ER) | payer BC ==
[2018-02-17 18:30] LABS: ABS Basophils 0.1 10^3/ul (0-0.2); ABS Eosinophils 0 10^3/ul (0-0.6); ABS Lymphocytes 1.4 10^3/ul (1.0-4.8); ABS Monocytes 1.2 10^3/ul (0-0.8); ABS Neutrophils 3.3 10^3/ul (1.5-7.7); ABS Nucleated RBC 0 10^3/ul; Eosinophil % 0.6 % (0-6); Hematocrit 34 % (42-52); Hemoglobin 11.6 g/dl (14.0-18.0); Lymphocyte % 23.3 % (25-47); Mean Corpuscular HGB Conc 35 g/dl (31-36); Mean Corpuscular Hemoglobin 30 pg (27-31); Mean Corpuscular Volume 88 fL (80-94); Mean Platelet Volume 6.7 um3 (7.4-10.4); Nucleated Red Blood Cells % 0; Platelet Count 276 10^3/ul (150-450); Red Blood Count 3.83 10^6/ul (4.00-5.40); Red Cell Distribution Width 16 % (10.5-15); White Blood Count 6.1 10^3/ul (3.5-10.8)
[2018-02-17] MEDS ORDERED: NS 0.9% 1000 ML* 2,000 ML ONE (18:47)
[2018-02-17 18:55] LABS: EGFR Non-African American 82.6 (>60)
[2018-02-17 18:58] LABS: Urine Appearance Clear; Urine Blood 1+ (Negative); Urine Color Yellow; Urine Ketones Negative (Negative); Urine Protein Negative (Negative); Urine Specific Gravity 1.021 (1.010-1.030); Urine Urobilinogen Negative (Negative)
--- NOTE | 2018-02-17 18:59 | RAD ---
INDICATION: Sepsis. COMPARISON: Comparison is made with a prior study from January 25, 2018. TECHNIQUE: A portable view of the chest was obtained. FINDINGS: Cardiac and mediastinal contours appear to be within normal limits. There is a patchy nodular infiltrate present at the right lung base. No pleural effusion is seen. IMPRESSION: PATCHY NODULAR INFILTRATE AT THE RIGHT LUNG BASE. RECOMMEND FOLLOW-UP CHEST X-RAYS TO RESOLUTION.
[2018-02-17 19:06] LABS: INR 1.15 (0.77-1.02)
[2018-02-17] MEDS ORDERED: NS 0.9% 1000 ML* 2,600 ML IV ONE (19:08)
[2018-02-17] MEDS ORDERED: cefTRIAXone(*) 1 GM in NS 0.9% 50 ML* 50 ML IVPB ONE (19:10)
[2018-02-17] MEDS ORDERED: Azithromycin IV(*) 500 MG in NS 0.9% 250 ML* 250 ML IVPB ONE (19:10)
[2018-02-17] MEDS ORDERED: Acetaminophen TAB* 325 MG PO ONE (19:18)
[2018-02-17 19:46] VITALS: BP 117/75
--- NOTE | 2018-03-03 07:29 | ED ---
Kris Palacios Rebecca, scribed for Dalton Connell MD on 02/17/18 at 1857 . HPI Febrile Illness - HPI Summary HPI Summary: Pt is a 62 y/o M who presents to ED c/o fever that began over the weekend (3-4 days ago). At its highest, temperature was 103. Sx aggravated and alleviated by nothing. Additionally c/o fatigue. Denies any cough or pain. - History of Current Complaint Chief Complaint: EDFever Time Seen by Provider: 02/17/18 18:02 Hx Obtained From: Patient Onset/Duration: Still Present Temperature: 103 F Current Severity: None Pain Intensity: 0 Pain Scale Used: 0-10 Numeric Aggravating Factors: Nothing Alleviating Factors: Nothing Associated Signs and Symptoms: Other: - Fatigue - Additional Pertinent History Primary Care Physician: [id number] - Allergy/Home Medications Allergies/Adverse Reactions: Allergies Allergy/AdvReac Type Severity Reaction Status Date / Time Penicillins Allergy Severe Hives Verified 02/17/18 17:10 PMH/Surg Hx/FS Hx/Imm Hx Endocrine/Hematology History: Reports: Hx Diabetes - CONTROLLED WITH DIET Denies: Hx Anticoagulant Therapy Cardiovascular History: Denies: Hx Cardiac Arrest, Hx Hypertension, Hx Myocardial Infarction, Hx Pacemaker/ICD Respiratory History: Denies: Hx Asthma, Hx Chronic Obstructive Pulmonary Disease (COPD) GI History: Reports: Other GI Disorders - hernia Denies: Hx Gastroesophageal Reflux Disease History: Denies: Hx Chronic Renal Failure, Hx Kidney Stones, Hx Renal Disease Musculoskeletal History: Reports: Other Musculoskeletal History - lumbar disc herniation Sensory History: Reports: Hx Contacts or Glasses, Hx Glaucoma - uses medicated eye drops, Hx Hearing Problem Denies: Hx Hearing Aid Opthamlomology History: Reports: Hx Contacts or Glasses, Hx Glaucoma - uses medicated eye drops Neurological History: 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 Denies: Hx Peripheral Neuropathy Psychiatric History: Denies: Hx Panic Disorder - Cancer History Cancer Type, 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 Negative: Chills Negative: Erythema Negative: Sore Throat Negative: Chest Pain Negative: Shortness Of Breath, Cough Negative: Abdominal Pain, Vomiting, Nausea Negative: dysuria, hematuria Negative: Myalgia, Edema Negative: Rash Neurological: Other - NEGATIVE: Dizziness All Other Systems Reviewed And Are Negative: Yes Physical Exam - Summary Physical Exam Summary: Constitutional: Well-developed, Well-nourished, Alert, Appears fatigued. (-) Distressed Skin: Warm, Dry, Appears flushed HENT: Normocephalic; Atraumatic Eyes: Conjunctiva normal Neck: Musculoskeletal ROM normal neck. (-) JVD, (-) Stridor, (-) Tracheal deviation Cardio: Rhythm regular, rate normal, Heart sounds normal; Intact distal pulses; The pedal pulses are 2+ and symmetric. Radial pulses are 2+ and symmetric. (-) Murmur Pulmonary/Chest wall: Effort normal, bibasilar crackles, (-) Respiratory distress, (-) Wheezes Abd: Soft, (-), epigastric tenderness, (-) Distension, (-) Guarding, (-) Rebound Musculoskeletal: (-) Edema Lymph: (-) Cervical adenopathy Neuro: Alert, Oriented x3 Psych: Mood and affect Normal Triage Information Reviewed: Yes Vital Signs On Initial Exam: Initial Vitals Temp Pulse Resp BP Pulse Ox 102 F 77 20 123/48 95 02/17/18 17:08 02/17/18 17:08 02/17/18 17:08 02/17/18 17:08 02/17/18 17:08 Vital Signs Reviewed: Yes Diagnostics - Vital Signs Vital Signs Temp Pulse Resp BP Pulse Ox 02/17/18 17:08 102 F 77 20 123/48 95 - Laboratory Result Diagrams: 02/17/18 18:23 02/17/18 18:23 Lab Statement: Any lab studies that have been ordered have been reviewed, and results considered in the medical decision making process. - Radiology CXR Radiology Interpretation Completed By: Radiologist - PATCHY NODULAR INFILTRATE AT THE RIGHT LUNG BASE. RECOMMEND FOLLOW-UP CHEST X-RAYS TO RESOLUTION. ED physician reviewed this radiology report. Re-Evaluation - Re-Evaluation First Eval Re-Evaluation Time: 19:20 Comment: Appearing weak and unsteady, unable to ambulate him for oximetry check Second Eval Re-Evaluation Time: 20:17 Change: Improved Comment: At this time, the pt is able to ambulate and his O2 sat is 94% on RA. He feels better and would like to go home. Course/Dx - Course Assessment/Plan: Pt is a 62 y/o M who presents to ED c/o fever that began over the weekend (3-4 days ago). At its highest, temperature was 103. Sx aggravated and alleviated by nothing. Additionally c/o fatigue. Denies any cough or pain. Blood work and UA were done. Blood work results include troponin of 0.00, and INR of 1.15. CXR reveals patchy nodular infiltrate at the right lung base. In the ED course, pt received Tylenol, Rocephin, Zithromax and fluids. He continues to be unable to walk and was unable to ambulate for an oximetry check. Discussed care of pt with Dr. Canales who accepts pt for admission. Upon reevaluation, the pt is able to ambulate and his O2 sat is 94% on RA. He feels better and would like to go home. 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 He will be D/C to home with Dx of community acquired PNA and will follow up with Dr. Watts or ron garces in 2-3 days. He understands and agrees. Allergies noted. - Diagnoses Provider Diagnoses: Community acquired pneumonia - Provider Notifications Discussed Care Of Patient With: Maeve Canales Time Discussed With Above Provider: 19:45 Instructed by Provider To: Other - Accepts pt for admission. Discharge - Sign-Out/Discharge Documenting (check all that apply): Discharge/Admit/Transfer - Discharge - Discharge Plan Condition: Stable Disposition: HOME Patient Education Materials: Community Acquired Pneumonia (ED) Referrals: Canelo Lynch MD [Primary Care Provider] - Maximo Watts MD [Medical Doctor] - 2 Days (2-3 days) [facility] [Outside] - 2 Days (2-3 days) Additional Instructions: Follow up with Dr. Watts or Ron Garces in 2-3 days. RETURN TO ED FOR ANY NEW OR WORSENING SYMPTOMS. The documentation as recorded by the Kris may Rebecca accurately reflects the service I personally performed and the decisions made by me, Dalton Connell MD.
== END 2018-02-17 21:24 | disposition home or self-care (01) ==
LOC: ED 17:03
DX: J18.9 Pneumonia, unspecified organism (principal); E11.9 Type 2 diabetes mellitus without complications; Z88.0 Allergy status to penicillin
CPT/HCPCS: 36415; 71045; 80053; 81003; 81015; 83605; 84484; 85025; 85610; 85730; 87040; 87086; 96361; 96365; 99284; J0456; J0696

== ENCOUNTER 2018-02-19 16:13 | Observation (INO) | payer BC ==
[2018-02-19] MEDS ORDERED: Temazepam CAP* 15 MG PO PRN (16:31)
[2018-02-19] MEDS ORDERED: Meclizine TAB* 12.5 MG PO PRN (16:38)
[2018-02-19] MEDS ORDERED: cefTRIAXone(*) 1 GM in NS 0.9% 50 ML* 50 ML IVPB SCH (17:00)
[2018-02-19] MEDS ORDERED: Enoxaparin(*) 40 MG/0.4 ML SYR SUBCUT SCH (17:00)
[2018-02-19] MEDS: NS 0.9% 1000 ML* 1,000 ML IV SCH (17:49)
[2018-02-19] MEDS: Acetaminophen TAB* 325 MG PO PRN (17:53)
[2018-02-19] MEDS: oxyCODONE TAB* 5 MG TAB PO SCH ×2 (17:54→21:12)
[2018-02-19] MEDS ORDERED: Azithromycin IV(*) 500 MG in NS 0.9% 250 ML* 250 ML IVPB SCH ×2 (18:00→20:00)
[2018-02-19] MEDS ORDERED: Iodixanol* (CONTRAST) 320 MG/ML 100 ML SDV IV ONE (20:02)
[2018-02-19] MEDS: Acyclovir* 400 MG TAB PO SCH (21:11)
[2018-02-19] MEDS: oxyCODONE SR TAB(*) 10 MG TAB.SR PO SCH (21:12)
[2018-02-20] MEDS: oxyCODONE TAB* 5 MG TAB PO SCH ×5 (00:20→13:31)
[2018-02-20 06:52] LABS: ABS Basophils 0 10^3/ul (0-0.2); ABS Eosinophils 0.2 10^3/ul (0-0.6); ABS Monocytes 0.9 10^3/ul (0-0.8); ABS Neutrophils 2.6 10^3/ul (1.5-7.7); ABS Nucleated RBC 0 10^3/ul; Eosinophil % 3.9 % (0-6); Hematocrit 31 % (42-52); Hemoglobin 10.6 g/dl (14.0-18.0); Lymphocyte % 21.2 % (25-47); Mean Corpuscular HGB Conc 34 g/dl (31-36); Mean Corpuscular Hemoglobin 30 pg (27-31); Mean Corpuscular Volume 87 fL (80-94); Nucleated Red Blood Cells % 0; Platelet Count 266 10^3/ul (150-450); Red Blood Count 3.59 10^6/ul (4.00-5.40); Red Cell Distribution Width 15 % (10.5-15); White Blood Count 4.8 10^3/ul (3.5-10.8)
[2018-02-20 07:13] LABS: EGFR Non-African American 114.6 (>60)
--- NOTE | 2018-02-20 07:53 | RAD ---
INDICATION: Pneumonia COMPARISON: Chest x-ray February 17, 2018; PET scan September 30, 2017 TECHNIQUE: Axial source images were obtained from the thoracic inlet to the hemidiaphragms. Coronal and sagittal reconstructed images were acquired. The visualized neck to include the thyroid appear normal. Chest wall: There is mild sclerosis and expansion of the right lateral second rib, finding described previously. There are healing fractures of the right fifth, sixth, and 10th ribs. There is mild sclerosis involving the right fourth and sixth ribs ribs. There is a small sclerotic focus involving T2. There are stable sclerotic changes involving the manubrium. There is no supraclavicular, infraclavicular, or axillary lymphadenopathy. Lungs : There are no pulmonary parenchymal masses or infiltrates. The pulmonary interstitium appears normal. There are no endobronchial lesions. Cardiomediastinal structures: The heart is normal in size. There is no pericardial effusion. There is no evidence of aortic aneurysm or dissection. The pulmonary vessels appear normal. There is no mediastinal or hilar adenopathy. The esophagus appears normal. Pleura : There are no pleural-based masses or effusions. Other: Nonobstructive left renal calculus. Probable left renal cyst. IMPRESSION: 1. Lungs clear. 2. Right-sided rib fractures with areas of sclerosis Some of these findings are new. Stable sclerosis involving the manubrium and right second rib. The findings are likely related to multiple myeloma with some degree of healing response. 3. Nonobstructive left renal calculus. Probable left renal cyst.
[2018-02-20] MEDS ORDERED: Ascorbic Acid TAB* 500 MG PO SCH (09:00)
[2018-02-20] MEDS ORDERED: Cholecalciferol TAB* 1000 UNITS PO SCH (09:00)
[2018-02-20] MEDS ORDERED: Sulfamethox/Trimethoprim DS 800/160* TAB PO SCH (09:00)
[2018-02-20] MEDS ORDERED: Aspirin EC TAB* 81 MG TAB.EC PO SCH (09:00)
[2018-02-20] MEDS: Acetaminophen TAB* 325 MG PO PRN (09:15)
[2018-02-20] MEDS: Acyclovir* 400 MG TAB PO SCH (09:15)
[2018-02-20] MEDS: oxyCODONE SR TAB(*) 10 MG TAB.SR PO SCH ×2 (09:15→13:31)
[2018-02-20] MEDS: NS 0.9% 1000 ML* 1,000 ML IV SCH (10:42)
[2018-02-20 13:11] VITALS: BP 112/62
[2018-02-21] MEDS ORDERED: Furosemide TAB* 20 MG PO SCH (09:00)
== END 2018-02-20 13:50 | disposition home or self-care (01) ==
LOC: INTOOBSV 17:07 → MED 17:07
PROVIDERS: ADMIT Internal Medicine Hematology & Oncology; ATTEND Internal Medicine Hematology & Oncology
DX: H18.9 Unspecified disorder of cornea (principal); J18.9 Pneumonia, unspecified organism; C90.00 Multiple myeloma not having achieved remission; Z87.891 Personal history of nicotine dependence; E11.9 Type 2 diabetes mellitus without complications; N20.0 Calculus of kidney
CPT/HCPCS: 36415; 71260; 80053; 84145; 85025; 86141; 87040; 96372; 99222; A9270-GY; G0378; J0456; J0696; J1650; Q9967

== ENCOUNTER 2018-02-22 21:07 | Emergency (ER) | payer BC ==
[2018-02-22 21:16] VITALS: BP 111/60
== END 2018-02-22 21:35 | disposition left against medical advice (07) ==
LOC: ED 21:07
DX: R50.9 Fever, unspecified (principal); Z53.21 Procedure and treatment not carried out due to patient leaving prior to being seen by health care provider

== ENCOUNTER 2018-08-22 12:00 | Emergency (ER) | payer BC, OTHER ==
--- OUTSIDE RECORDS SUMMARY | 2018-08-22 12:51 | XMS REPORT | Continuity of Care Document ---
:1955 External Reference #:[id number] Author Name Lonnie Martin Care Team Providers Name Role Phone Canelo Lynch MD Primary Care Physician Unavailable Payers Type Date Identification Numbers Payment Provider Subscriber Policy Number: [id number] BS Francisco Rita Ni Group Number: [id number] [address] [address] PayID: [id number] [place] [id number] Advance Directives Description No Information Available Problems Date Description Provider Status Onset: 06/26/2018 Pathological fracture, right ulna, initial Leonard Ayala MD Active encounter for fracture Family History Date Family Member(s) Problem(s) Comments General Diabetes General Cancer Social History Type Date Description Comments Sex Unknown Lives With Spouse Occupation Currently Working ETOH Use Denies alcohol use Tobacco Use Start: Unknown End: Patient is a former smoker quit 30 yrs ago Unknown Smoking Status Reviewed: 08/11/18 Patient is a former smoker quit 30 yrs ago Allergies, Adverse Reactions, Alerts Date Description Reaction Status Severity Comments 03/23/2018 Penicillin Urticaria Active Medications Medication Date Status Form Strength Qnty SIG Indications Ordering Provider Aspirin 0000/ Active Tablets DR 81mg 1 by mouth Unknown 0000 every day Vitamin D 00/ Active Tablets 1000Unit 2 every day Unknown (Cholecalcifer 0000 ol) Vitamin C / Active Tablets 500mg 1 by mouth Unknown 0000 every day Oxycodone HCL 00/ Active Tablets 10mg 1 by mouth Unknown 0000 every 3 hours as needed pain Oxycontin / Active Tab ER 12H 30mg 1 tab by Unknown 0000 Abuse-Det mouth three times a day Furosemide 00// Hx Tablets 20mg 1 by mouth Unknown 0000 - every other day (not 2018 taking) Acyclovir / Hx Tablets 400mg take 1 Unknown 0000 - tablet by 10/18/ mouth twice 2018 a day Revlimid / Hx Capsules 10mg once per Unknown 0000 - day 2017 Meclizine HCL / Hx Tablets 25mg 1 tablet Unknown 0000 - every 8 06/25/ hours as 2018 needed for vertigo Moxifloxacin / Hx Tablets 400mg 1 by mouth Unknown HCL 0000 - every day 2017 Bactrim DS / Hx Tablets 800-160mg 1 by mouth Unknown 0000 - every 06/25/ Friday, 2017 and Friday Immunizations Description No Information Available Vital Signs Date Vital Result Comment 08/11/2018 2:36pm Height 69 inches 5'9" Weight 190.00 lb BP Systolic 126 mmHg BP Diastolic 60 mmHg Respiratory Rate 20 /min Pain Level 0 BMI (Body Mass Index) 28.1 kg/m2 07/23/2018 2:41pm Height 69 inches 5'9" Weight 190.00 lb Heart Rate 89 /min BP Systolic 108 mmHg BP Diastolic 56 mmHg Body Temperature 94.8 F Pain Level 5 BMI (Body Mass Index) 28.1 kg/m2 07/09/2018 2:42pm Height 69 inches 5'9" Weight 182.00 lb BP Systolic 118 mmHg BP Diastolic 60 mmHg Respiratory Rate 18 /min Pain Level 0 BMI (Body Mass Index) 26.9 kg/m2 07/02/2018 10:28am Heart Rate 84 /min BP Systolic 104 mmHg BP Diastolic 56 mmHg Respiratory Rate 14 /min Pain Level 0 06/26/2018 8:50am Height 69 inches 5'9" Weight 182.00 lb Heart Rate 72 /min BP Systolic 120 mmHg BP Diastolic 68 mmHg Body Temperature 97.6 F Pain Level 8 BMI (Body Mass Index) 26.9 kg/m2 03/23/2018 1:20pm Height 69 inches 5'9" Weight 188.25 lb Heart Rate 72 /min BP Systolic Sitting 118 mmHg BP Diastolic Sitting 64 mmHg Respiratory Rate 14 /min Body Temperature 98.4 F BMI (Body Mass Index) 27.8 kg/m2 Results Description No Information Available Procedures Date Code Description Status 03/24/2018 72329 ECHO Transthoracic, Real-Time 2D With Doppler And Color Completed Flow 03/24/2018 41401 ECHO Transthoracic, Real-Time 2D With Doppler And Color Completed Flow Encounters Type Date Location Provider Dx Diagnosis Office Visit 07/23/2018 Orthopedic Leonard Ayala, [id number] Pathological 2:45p Services Of fracture, right C.[facility].A. ulna, subs for fx w routn heal Office Visit 07/09/2018 Orthopedic Leonard Ayala [id number] Pathological 2:45p Services Of fracture, right C.M.A. ulna, subs for fx w routn heal Office Visit 07/02/2018 Orthopedic Leonard Ayala [id number] Pathological 10:15a Services Of fracture, right C.[facility].A. ulna, subs for fx w routn heal Office Visit 06/26/2018 Orthopedic eLonard Ayala [id number] Pathological 8:15a Services Of fracture, right C.M.A. 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
--- OUTSIDE RECORDS SUMMARY | 2018-08-22 12:51 | XMS REPORT | Continuity of Care Document ---
:1955 External Reference #:[id number] Author Name Lonnie Martin Care Team Providers Name Role Phone Canelo Lynch MD Primary Care Physician Unavailable Payers Type Date Identification Numbers Payment Provider Subscriber Policy Number: [id number] BS Francisco Rita Ni Group Number: [id number] [address] [address] PayID: [id number] [place] [id number] Advance Directives Description No Information Available Problems [...] 30 yrs ago Unknown Smoking Status Reviewed: 07/23/18 Patient is a former smoker quit 30 [...] Available Vital Signs Date Vital Result Comment 07/23/2018 2:41pm Height 69 inches 5'9" Weight [...] Available Procedures Date Code Description Status 03/24/2018 30148 ECHO Transthoracic, Real-Time 2D With Doppler And Color Completed Flow 03/24/2018 30188 ECHO Transthoracic, Real-Time 2D With Doppler And Color Completed Flow Encounters Type Date Location Provider Dx Diagnosis Office Visit 07/09/2018 Orthopedic Meir [id number] Pathological 2:45p Services Of right Rosana Polk, subs for fx w majorn heal Office Visit 07/02/2018 Orthopedic Meir [id number] Pathological 10:15a Services Of fracture, right C.M.AJessie berg, subs for fx w routn heal Office Visit 06/26/2018 Orthopedic Meir [id number] Pathological 8:15a Services Of fracture, right C.M.A. 

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
[2018-08-22 15:38] VITALS: BP 119/56
== END 2018-08-22 15:36 | disposition home or self-care (01) ==
LOC: ED 12:00
DX: S52.511A Displaced fracture of right radial styloid process, initial encounter for closed fracture (principal); S29.012A Strain of muscle and tendon of back wall of thorax, initial encounter; M54.5 Low back pain; M25.531 Pain in right wrist; Z88.0 Allergy status to penicillin; V49.9XXA Car occupant (driver) (passenger) injured in unspecified traffic accident, initial encounter; Y92.9 Unspecified place or not applicable; Z87.891 Personal history of nicotine dependence
CPT/HCPCS: 70450; 72125; 72128; 72131; 99282

== ENCOUNTER → 2018-11-22 13:39 | Emergency (ER) | payer BC ==
[~2018-11-22 13:39] MED LIST: Iodixanol* (CONTRAST) 320 MG/ML 100 ML SDV IV ONE; Sulfamethox/Trimethoprim DS 800/160* TAB PO ONE
--- NOTE | 2018-11-22 15:01 | ED ---
Neck Pain - HPI Summary HPI Summary: This patient is a 63 year old M presenting to [facility] accompanied by his with a chief complaint of a large amount of swelling to the right side of the neck this morning without pain. Patient received chemotherapy last week for multiple myeloma. Yesterday patient had a fever of 101. Patient additionally reports a possible infection and swelling in the right toes. Pain of the right toes rated 7/10 in severity. Patient denies SOB, cough, difficulty swallowing, and airway obstruction. Patient has no other complaints at this time. PMHx includes DM. - History of Current Complaint Chief Complaint: EDNeckComplaint Stated Complaint: NECK HAS LUMP THAT SHOULDNT BE THERE PER PT Time Seen by Provider: 11/22/18 14:44 Hx Obtained From: Patient Onset/Duration Of Injury/Symptoms: Hours Mechanism Of Injury: No Known Trauma Timing: Constant Onset/Duration: Sudden Onset Pain Intensity: 7 Pain Scale Used: 0-10 Numeric Character: Other: - swelling Alleviating Factors: Nothing Associated Signs & Symptoms: Positive: Swelling, Fever Related History: Other - chemotherapy - Allergies/Home Medications Allergies/Adverse Reactions: Allergies Allergy/AdvReac Type Severity Reaction Status Date / Time Penicillins Allergy Severe Hives Verified 11/22/18 13:57 PMH/Surg Hx/FS Hx/Imm Hx Endocrine/Hematology History: Reports: Hx Blood Disorders - Multiple Myeloma, Hx Diabetes Denies: Hx Anticoagulant Therapy - daily ASA Cardiovascular History: Denies: Hx Cardiac Arrest, Hx Hypertension, Hx Myocardial Infarction, Hx Pacemaker/ICD Respiratory History: Denies: Hx Asthma, Hx Chronic Obstructive Pulmonary Disease (COPD) GI History: Reports: Other GI Disorders - hernia Denies: Hx Gastroesophageal Reflux Disease History: Denies: Hx Chronic Renal Failure, Hx Kidney Stones, Hx Renal Disease Musculoskeletal History: Reports: Other Musculoskeletal History - Rt hemithorax w/ multiple fx's Sensory History: Reports: Hx Contacts or Glasses, Hx Glaucoma - uses medicated eye drops, Hx Hearing Problem Denies: Hx Hearing Aid Opthamlomology History: Reports: Hx Contacts or Glasses, Hx Glaucoma - uses medicated eye drops Neurological History: Reports: Hx Peripheral Neuropathy - B/L feet 2ndry to chemo, Other Neuro Impairments/Disorders - facial palsey Psychiatric History: Denies: Hx Panic Disorder - Cancer History Cancer Type, 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 - Surgical History Surgery Procedure, Year, and Place: TONSILS, RT KNEE SURGERY WITH HARDWARE - Immunization History Date of Influenza Vaccine: jul 2018 Infectious Disease History: No Infectious Disease History: Denies: Traveled Outside the [place] in Last 30 Days - Family History Known Family History: Positive: Diabetes - Social History Alcohol Use: None Hx Substance Use: No Substance Use Type: Reports: None Hx Tobacco Use: Yes - not currently Smoking Status (MU): Former Smoker Review of Systems Positive: Fever Positive: Other - right neck swelling, no pain. Negative: Sore Throat Negative: Shortness Of Breath, Cough Positive: Other - swelling and discharge from right toes All Other Systems Reviewed And Are Negative: Yes Physical Exam - Summary Physical Exam Summary: VITAL SIGNS: Reviewed. GENERAL: Patient is a well-developed and nourished male who is lying comfortable in the stretcher. Patient is not in any acute respiratory distress. HEAD AND FACE: No signs of trauma. No ecchymosis, hematomas or skull depressions. No sinus tenderness. EYES: PERRLA, EOMI x 2, No injected conjunctiva, no nystagmus. EARS: Hearing grossly intact. Ear canals and tympanic membranes are within normal limits. MOUTH: Oropharynx within normal limits. NECK: Supple, trachea is midline, no adenopathy, no JVD, no carotid bruit, no c- spine tenderness, neck with full ROM. There is a hard 9x5cm hard non-moveable mass with tenderness ad erythema. Mass is not pulsating. CHEST: Symmetric, no tenderness at palpation LUNGS: Clear to auscultation bilaterally. No wheezing or crackles. CVS: Regular rate and rhythm, S1 and S2 present, no murmurs or gallops appreciated. ABDOMEN: Soft, non-tender. No signs of distention. No rebound no guarding, and no masses palpated. Bowel sounds are normal. EXTREMITIES: FROM in all major joints, no edema, no cyanosis or clubbing. NEURO: Alert and oriented x 3. No acute neurological deficits. Speech is normal and follows commands. SKIN: Dry and warm Triage Information Reviewed: Yes Vital Signs On Initial Exam: Initial Vitals Temp Pulse Resp BP Pulse Ox 99.7 F 83 18 111/55 98 11/22/18 13:49 11/22/18 13:49 11/22/18 13:49 11/22/18 13:49 11/22/18 13:49 Vital Signs Reviewed: Yes Diagnostics - Vital Signs Vital Signs Temp Pulse Resp BP Pulse Ox 11/22/18 13:49 99.7 F 83 18 111/55 98 - Laboratory Result Diagrams: 11/22/18 15:25 11/22/18 15:25 Lab Statement: Any lab studies that have been ordered have been reviewed, and results considered in the medical decision making process. - CT Chest CT CT Interpretation Completed By: Radiologist Summary of CT Findings: AGAIN NOTED ARE MASSES OF THE STERNAL NOTCH AND SUPERIOR TO THE RIGHT SCAPULA DESCRIBED. ON CT OF THE NECK. ED physician has reviewed this report. Neck CT CT Interpretation Completed By: Radiologist Summary of CT Findings: 6 CM MASS OF THE SUPRASCAPULAR NOTCH. 8.9 CM MASS OF THE RIGHT SUPRASCAPULAR SPACE. THESE FINDINGS ARE MOST CONSISTENT WITH NEOPLASM GIVEN HISTORY OF MALIGNANCY. RECOMMEND. CONSIDERATION OF TISSUE SAMPLING. ED Physician has reviewed this report. - Additional Comments Diagnostic Additional Comments: A soft tissue US reveals, as per radiologist "THE PALPABLE ABNORMALITY CORRESPONDS TO 6 CM SOLID MASS, LIKELY NEOPLASTIC GIVEN THE HISTORY OF MALIGNANCY. RECOMMEND CONSIDERATION OF TISSUE SAMPLING." ED Physician has reviewed this report. Neck Course/Dx - Course Assessment/Plan: This patient is a 64-year-old male who presents to the emergency department with chief complaint of having a swelling in the right side of the neck. The patient reports that the swelling just appeared overnight. Blood work without any significant abnormality except for hemoglobin 9.3, hematocrit 29, chloride 100, creatinine 1.63, glucose 142, and CRP of 160. Ultrasound of the neck impression: Palpable abnormality corresponds to a 6 mm solid mass likely neoplastic given the history of malignancy. Recommended considerations of tissue sampling. In the ED course the patient was given Bactrim because of a right second toe wound and cellulitis. Neck CT IMPRESSION: 6 CM MASS OF THE SUPRASCAPULAR NOTCH. 8.9 CM MASS OF THE RIGHT SUPRASCAPULAR SPACE. THESE FINDINGS ARE MOST CONSISTENT WITH NEOPLASM GIVEN HISTORY OF MALIGNANCY. RECOMMEND CONSIDERATION OF TISSUE SAMPLING. Head CT IMPRESSION: AGAIN NOTED ARE MASSES OF THE STERNAL NOTCH AND SUPERIOR TO THE RIGHT SCAPULA DESCRIBED ON CT OF THE NECK. Discussed findings with the Ms. Jiang and recommends for the patient to be discharged home and she will call the patient tomorrow for further workup and management. Discussed the findings with the patient and the family and they agree. Patient will be discharged home with a prescription for Bactrim. Patient is hemodynamically stable alert and oriented 3. - Diagnoses Provider Diagnoses: Neck mass - Physician Notifications Discussed Care Of Patient With: Zachariah Jiang - oncology Time Discussed With Above Provider: 16:22 Instructed by Provider To: Have Pt Call For Appt. - Dr. Jiang will follow up with patient. Discharge - Sign-Out/Discharge Documenting (check all that apply): Patient Departure - discharge Patient Received Moderate/Deep Sedation with Procedure: No - Discharge Plan Condition: Stable Disposition: HOME Prescriptions: Sulfamethox/Trimethoprim DS* [Bactrim DS 800/160 TAB*] 1 tab PO BID #20 tab Patient Education Materials: Soft Tissue Mass (ED) Referrals: Canelo Lynch MD [Primary Care Provider] - 3 Days Additional Instructions: RETURN TO THE EMERGENCY DEPARTMENT FOR CHANGING OR WORSENING SYMPTOMS. - Billing Disposition and Condition Condition: STABLE Disposition: Home - Attestation Statements Document Initiated by Scribe: Yes Documenting Scribe: Wendi Raza Provider For Whom Arcadio is Documenting (Include Credential): Ye Flores MD Scribe Attestation: Wendi Palacios, scribed for Ye Flores MD on 11/23/18 at 0737. Scribe Documentation Reviewed: Yes Provider Attestation: The documentation as recorded by the Wendi may accurately reflects the service I personally performed and the decisions made by Ye vergara MD Status of Scribe Document: Viewed
[2018-11-22 15:40] LABS: ABS Basophils 0 10^3/ul (0-0.2); ABS Eosinophils 0 10^3/ul (0-0.6); ABS Monocytes 0.8 10^3/ul (0-0.8); ABS Neutrophils 3.8 10^3/ul (1.5-7.7); ABS Nucleated RBC 0 10^3/ul; Eosinophil % 0.6 %; Hematocrit 29 % (36-46); Hemoglobin 9.3 g/dL (14.0-18.0); Lymphocyte % 17.3 %; Mean Corpuscular HGB Conc 32 g/dL (31-36); Mean Corpuscular Hemoglobin 29 pg (27-31); Mean Corpuscular Volume 89 fL (80-94); Mean Platelet Volume 7.4 fL (7.4-10.4); Nucleated Red Blood Cells % 0.1; Platelet Count 243 10^3/uL (150-450); Red Blood Count 3.26 10^6 /uL (4.18-5.48); Red Cell Distribution Width 20 % (10.5-15); White Blood Count 5.7 10^3/uL (3.5-10.8)
[2018-11-22 15:56] LABS: Albumin 3.7 g/dL (3.2-5.2); Albumin/Globulin Ratio 1.3 (1-3); BUN/Creatinine Ratio 36.5 (8-20); C Reactive Protein 160.03 mg/L (<8.01); Calcium 8.6 mg/dL (8.6-10.3); EGFR African American 156.1 (>60); Globulin 2.8 g/dL (2-4); Potassium 4.4 mmol/L (3.5-5.0); Total Bilirubin 0.4 mg/dL (0.2-1.0); Total Protein 6.5 g/dL (6.4-8.9)
[2018-11-22 16:55] LABS: Urine Appearance Clear; Urine Bilirubin Negative (Negative); Urine Blood Negative (Negative); Urine Color Yellow; Urine Glucose Negative (Negative); Urine Ketones Negative (Negative); Urine Nitrite Negative (Negative); Urine Protein Negative (Negative); Urine Specific Gravity 1.021 (1.010-1.030); Urine Urobilinogen Negative (Negative)
[2018-11-22 18:53] VITALS: BP 125/58
== END | disposition home or self-care (01) ==
LOC: ED 13:39
DX: R22.1 Localized swelling, mass and lump, neck (principal); R50.9 Fever, unspecified; Z88.0 Allergy status to penicillin; Z87.891 Personal history of nicotine dependence
CPT/HCPCS: 36415; 70491; 71260; 80053; 81003; 83605; 85025; 86140; 87040; 99283; A9270-GY; Q9967

== ENCOUNTER 2019-02-26 16:05 | Observation (INO) | payer BC ==
[2019-02-26] MEDS ORDERED: Ondansetron INJ* 2 MG/ML VIAL IV PRN (16:29)
[2019-02-26] MEDS ORDERED: Dextrose 50% Syringe 50 ML* 25 GM/50 ML SYRINGE IV PUSH PRN (16:38)
[2019-02-26] MEDS ORDERED: Docusate CAP* 100 MG PO PRN (16:39)
[2019-02-26] MEDS ORDERED: HYDROmorphone INJ1* 1 MG/ML SYRINGE IV SLOW PU PRN (16:47)
[2019-02-26] MEDS ORDERED: Dexamethasone IV* 4 MG/ML 5 ML VIAL (20 MG) ONE (17:00)
[2019-02-26] MEDS: NS 0.9% 1000 ML** 1,000 ML IV SCH (18:30)
[2019-02-26] MEDS: oxyCODONE SR TAB(*) 40 MG TAB.SR PO SCH (20:30)
[2019-02-26] MEDS ORDERED: Acetaminophen TAB* 325 MG ONE (20:41)
[2019-02-26] MEDS ORDERED: Acetaminophen TAB* 325 MG PO PRN (20:41)
[2019-02-26] MEDS ORDERED: Enoxaparin(*) 40 MG/0.4 ML SYR SUBCUT SCH (21:00)
[2019-02-26] MEDS ORDERED: POMALIDOMIDE 4 MG PO SCH (23:00)
[2019-02-26] MEDS: Insulin LISPRO* 1 UNITS UNIT SUBCUT SCH (23:09)
[2019-02-26 23:38] LABS: Urine Appearance Cloudy; Urine Bacteria 3+ (Absent); Urine Bilirubin Negative (Negative); Urine Blood 1+ (Negative); Urine Color Yellow; Urine Glucose 1+(50 mg/dL) (Negative); Urine Ketones 1+ (Negative); Urine Nitrite Positive (Negative); Urine Protein Negative (Negative); Urine Red Blood Cell 2+(6-10/hpf) (Absent); Urine Specific Gravity 1.016 (1.010-1.030); Urine Squamous Epithelial Cell Present (Absent); Urine Urobilinogen Negative (Negative); Urine White Blood Cell 3+(>20/hpf) (Absent)
[2019-02-27] MEDS: Dexamethasone IV* 4 MG/ML 1 ML (4 MG) IV SLOW PU SCH ×4 (01:09→17:58)
[2019-02-27] MEDS: NS 0.9% 1000 ML** 1,000 ML IV SCH (04:44)
[2019-02-27] MEDS: oxyCODONE TAB* 5 MG TAB PO PRN ×2 (05:26→12:28)
[2019-02-27 06:26] LABS: ABS Lymphocytes 0.7 10^3/ul (1.0-4.8); ABS Monocytes 0.4 10^3/ul (0-0.8); ABS Neutrophils 8.7 10^3/ul (1.5-7.7); Hematocrit 27 % (42-52); Hemoglobin 8.7 g/dL (14.0-18.0); Lymphocyte % 7.1 %; Mean Corpuscular HGB Conc 32 g/dL (31-36); Mean Corpuscular Hemoglobin 28 pg (27-31); Mean Corpuscular Volume 86 fL (80-94); Platelet Count 361 10^3/uL (150-450); Red Blood Count 3.14 10^6 /uL (4.18-5.48); Red Cell Distribution Width 18 % (10-15); White Blood Count 9.9 10^3/uL (3.5-10.8)
[2019-02-27 06:40] LABS: Calcium 8.8 mg/dL (8.6-10.3); EGFR African American 186.5 (>60); EGFR Non-African American 154.2 (>60); Globulin 3.1 g/dL (2-4); Potassium 4.3 mmol/L (3.5-5.0); Total Bilirubin 0.5 mg/dL (0.2-1.0); Total Protein 6.1 g/dL (6.4-8.9)
[2019-02-27] MEDS: oxyCODONE SR TAB(*) 40 MG TAB.SR PO SCH ×2 (07:58→14:03)
[2019-02-27] MEDS: Insulin LISPRO* 1 UNITS UNIT SUBCUT SCH ×3 (07:59→17:33)
[2019-02-27] MEDS ORDERED: glipiZIDE TAB.XL* 2.5 MG PO PRN (08:30)
[2019-02-27] MEDS ORDERED: Aspirin EC TAB* 81 MG TAB.EC PO SCH (09:00)
[2019-02-27 16:12] VITALS: BP 107/55
[2019-03-01] MEDS ORDERED: Sulfamethox/Trimethoprim DS 800/160* TAB PO SCH (09:00)
== END 2019-02-27 18:30 | disposition home or self-care (01) ==
LOC: MED 17:46
PROVIDERS: ADMIT Internal Medicine Hematology & Oncology; ATTEND Internal Medicine Hematology & Oncology
DX: R33.9 Retention of urine, unspecified (principal); C90.00 Multiple myeloma not having achieved remission; R10.9 Unspecified abdominal pain; M54.9 Dorsalgia, unspecified; Z87.891 Personal history of nicotine dependence; Z79.82 Long term (current) use of aspirin; Z79.899 Other long term (current) drug therapy; Z88.0 Allergy status to penicillin
CPT/HCPCS: 36415; 80053; 81003; 81015; 85025; 87077; 87086; 87186; 96372; 96374; 96375; 96376; 99219; 99222; A9270-GY; G0378; G8978-GP-CJ; G8979-GP-CI; J1100; J1170; J1650

== ENCOUNTER 2019-03-30 11:18 | Inpatient (IN) | payer BC ==
[2019-03-30] MEDS ORDERED: NS 0.9% 1000 ML** 1,000 ML IV ONE (12:03)
[2019-03-30] MEDS ORDERED: Morphine 4 MG/ML VIAL (1 ml) 4 MG/ML VIAL IV ONE (13:41)
[2019-03-30] MEDS ORDERED: Ondansetron INJ* 2 MG/ML VIAL IV ONE (13:43)
[2019-03-30] MEDS ORDERED: Ondansetron INJ* 2 MG/ML VIAL IV PRN (13:48)
[2019-03-30 13:52] LABS: Urine Appearance Turbid; Urine Bacteria 3+ (Absent); Urine Bilirubin Negative (Negative); Urine Blood 2+ (Negative); Urine Color Amber; Urine Glucose Negative (Negative); Urine Ketones Negative (Negative); Urine Nitrite Negative (Negative); Urine Protein 1+(30 mg/dL) (Negative); Urine Red Blood Cell 3+(>10/hpf) (Absent); Urine Specific Gravity 1.015 (1.010-1.030); Urine Urobilinogen Positive (Negative); Urine White Blood Cell 3+(>20/hpf) (Absent)
[2019-03-30 14:26] LABS: INR 1.45 (0.82-1.09)
[2019-03-30 14:29] LABS: ABS Lymphocytes 0.4 10^3/ul (1.0-4.8); ABS Monocytes 0.6 10^3/ul (0-0.8); ABS Neutrophils 6.2 10^3/ul (1.5-7.7); Hematocrit 17 % (42-52); Hemoglobin 5.7 g/dL (14.0-18.0); Lymphocyte % 5.1 %; Mean Corpuscular HGB Conc 33 g/dL (31-36); Mean Corpuscular Hemoglobin 28 pg (27-31); Mean Corpuscular Volume 86 fL (80-94); Mean Platelet Volume 8.2 fL (7.4-10.4); Platelet Count 90 10^3/uL (150-450); Red Blood Count 2.02 10^6 /uL (4.18-5.48); Red Cell Distribution Width 18 % (10-15); White Blood Count 7.2 10^3/uL (3.5-10.8)
[2019-03-30] MEDS ORDERED: Lidocaine 5% OINT* TUBE TOPICAL ONE (15:00)
[2019-03-30] MEDS: Dexamethasone TAB* 4 MG PO SCH ×2 (15:14→23:00)
[2019-03-30] MEDS: Enoxaparin(*) 40 MG/0.4 ML SYR SUBCUT SCH (15:17)
[2019-03-30] MEDS: oxyCODONE TAB* 5 MG TAB PO PRN (17:51)
[2019-03-30 18:20] LABS: Urine Appearance Cloudy; Urine Bacteria 3+ (Absent); Urine Bilirubin Negative (Negative); Urine Blood 2+ (Negative); Urine Color Yellow; Urine Glucose Negative (Negative); Urine Ketones Negative (Negative); Urine Nitrite Positive (Negative); Urine Protein Negative (Negative); Urine Red Blood Cell 3+(>10/hpf) (Absent); Urine Specific Gravity 1.015 (1.010-1.030); Urine Urobilinogen Negative (Negative); Urine White Blood Cell 3+(>20/hpf) (Absent)
[2019-03-30] MEDS: Morphine 4 MG/ML VIAL (1 ml) 4 MG/ML VIAL IV PRN (18:30)
--- NOTE | 2019-03-30 19:36 | HP ---
CC: Dr. Maldonado * ADMISSION HISTORY AND PHYSICAL: DATE OF ADMISSION: 03/30/19 PRIMARY CARE PROVIDER: Dr. Maldonado. PRIMARY ONCOLOGIST: Dr. Martínez Vee. ATTENDING PHYSICIAN: Dr. Martínez Vee.* (DICTATED BY KO ROUSSEAU) ADMITTING PROVIDER: KO Rousseau CHIEF COMPLAINT: Anemia. HISTORY OF PRESENT ILLNESS: This is a 63-year-old gentleman with multiple myeloma who has been under the care of Dr. Vee for the last several years, who presented to the emergency department earlier today with anemia that was found on routine lab testing completed at [facility] earlier in the day. The patient was last seen in the Oncology office for a carfilzomib infusion on 02/25/19, after which he took a family vacation to [place]. The patient's report that early part of their was quite pleasant, but he subsequently developed lethargy and some confusion for which he was taken to an emergency department in [place]. He was found to be tachycardiac and hypotensive and subsequently admitted to the ICU for septic shock requiring pressor support. It was later identified that the patient was growing ESBL E. coli from a urinary source. The patient had an indwelling Jefferson catheter placed within the several weeks prior to his trip for urinary retention that was thought to most likely be due to tumor infiltration into the spinal canal, affecting the sacral nerve. The patient was subsequently discharged to [facility] for subacute rehab and required 3 additional days of imipenem which was delivered via PICC line and completed on 03/22/19. The patient's reports that he has been participating in physical therapy during his time at [facility] but his performance status is incredibly poor and he is unable to stand independently. He has had intermittent fevers since being at rehab. Most recent was approximately 3 days ago. Routine lab was ordered this morning which identified a hemoglobin of 5.8 g/dL and the patient was subsequently referred to the emergency department for an urgent blood transfusion. The patient has been incontinent of stool since he developed urinary retention and is unsure if he has had any melena as the nursing staff at [facility] has been the ones to help change him after a bowel movement. He has had some intermittent abdominal pain, but it is difficult to discern whether this is much different than prior symptoms. His appetite has been okay but he continues to lose weight. He is quite weak as mentioned above, but this does not seem to be new or progressive over the last couple of weeks as he was quite deconditioned upon leaving the hospital in [place]. Upon reviewing records from [facility] that arrived today, it appears that the patient's hemoglobin at the time of discharge on 03/16/19 was 8 and he had a platelet count of approximately 60,000. His platelets had nadired during that hospitalization to approximately 23,000 in the setting of sepsis and had recovered to approximately 60,000 at the time of discharge. There were no concerns regarding acute bleeding during that hospitalization. PAST MEDICAL HISTORY: 1. Non-insulin dependent diabetes. 2. Multiple myeloma. PAST SURGICAL HISTORY: A knee surgery. HOME MEDICATIONS: 1. Acyclovir 400 mg p.o. twice daily. 2. Bactrim DS 800-160 daily on Friday, Friday, Friday. 3. Colace 100 mg p.o. twice daily as needed. 4. Dexamethasone 4 mg p.o. 3 times daily. 5. Glipizide ER 2.5 mg p.o. daily. 6. Hydrochlorothiazide 25 mg p.o. daily. 7. Oxycodone 30 mg p.o. q.2 hours as needed for pain. 8. OxyContin 120 mg p.o. q. morning and afternoon as well as 180 mg p.o. q. evening. FAMILY HISTORY: Mother with uterine cancer. SOCIAL HISTORY: The patient lives at home with his , now a resident of [facility] in a subacute setting. He has a 12-pack year smoking history, quit over 35 years ago and occasionally consumes alcohol. PHYSICAL EXAMINATION GENERAL: This is a very lethargic and cachectic appearing gentleman who appears much older than stated age but is in no acute distress and accompanied by his . VITAL SIGNS: Initial vitals, temperature 98.2 degrees Fahrenheit, pulse 78 beats per minute, respiratory rate 16, oxygen saturation 96% on room air, and blood pressure 96/59 mmHg. HEENT: Multiple missing teeth. Mucous membranes are mildly dry. RESPIRATORY: Lungs are clear to auscultation without wheezes, crackles, or rhonchi. CARDIOVASCULAR: Heart has a regular rate and rhythm without murmurs, rubs, or gallops. ABDOMEN: Abdomen is soft, nontender to palpation. DIAGNOSTIC STUDIES/LAB DATA: Labs: CBC shows a white blood cell count of 7200 , hemoglobin of 5.7 g/dL, and platelets of 90,000 (measured at 80,000 earlier today). INR of 1.45. Lactic acid of 1.4. Comprehensive metabolic panel shows a normal sodium and potassium with creatinine of 0.67. Normal transaminases and mildly elevated alk phos to 180. Hospital Imaging: Chest x-ray shows PICC line in place, it terminates near the mid superior vena cava. Evidence of possible subsegmental atelectasis but no obvious infiltrate and old bilateral rib fractures. ASSESSMENT AND PLAN: This is a 63-year-old male with multiple myeloma and non- insulin dependent diabetes with a recent hospitalization in [place] for septic shock secondary to ESBL E. coli, now status post treatment with imipenem finishing 03/22/19 with a chronic indwelling Jefferson catheter in place. The patient presents to the emergency department with a hemoglobin of 5.7 g/dL on routine labs completed earlier today. It is not clear as to what has caused his drop in hemoglobin. This may represent GI bleed versus progressive multiple myeloma. The patient does require hospitalization for further assessment and treatment. He will be admitted under inpatient status. 1. Anemia - Most likely causes are GI bleed versus progressive multiple myeloma. We will start with the transfusion of 2 units of packed red blood cells. We will check stool for occult blood and also sent off myeloma markers to compare to recent studies approximately 1 month ago. The patient was hemodynamically stable at the time of admission, clinical presentation favors progressive myeloma over GI bleed. 2. Multiple myeloma - the patient has been off therapy for approximately 1 month and due to his extremely poor performance status and recent severe infection, we will continue to hold any myeloma therapy until there is more clear picture as to his trajectory from this hospitalization. 3. Recent ESBL E. coli septicemia - the patient has had fevers intermittently over the last week or so, since completing antibiotics. He has an indwelling Jefferson catheter in place. We will plan to exchange his Jefferson catheter and repeat urinalysis with culture at that time as well as get 1 set of blood cultures at this time for screening. He is afebrile in the emergency department. Of note, the patient has had frequent intermittent fevers without prior infectious source that has been identified to be associated with his malignancy. We will not empirically resume antibiotics at this time, until cultures are available for review. 4. Non-insulin dependent diabetes - plan to continue the patient's glipizide at this time. We will monitor his glucose on daily labs and institute via sliding scale insulin if necessary but would like to avoid frequent glucose checks at this time. 5. Code status. The patient is DNR. 6. DVT prophylaxis - assuming that the patient has no signs of active bleeding , we will initiate prophylactic intake coagulation with Lovenox 40 mg subcu daily. DISPOSITION: The patient is being admitted to the hospital under inpatient status with anticipated length of stay to be greater than 2 midnights. KO ROUSSEAU [id number]/CPS #: [id number] [id number]
[2019-03-30] MEDS ORDERED: oxyCODONE SR TAB(*) 20 MG TAB.SR PO SCH (21:00)
[2019-03-30] MEDS ORDERED: oxyCODONE SR TAB(*) 40 MG TAB.SR PO SCH (21:00)
[2019-03-30] MEDS: Acyclovir* 400 MG TAB PO SCH (23:00)
[2019-03-30] MEDS: Timolol 0.5% OPTH.SOL* BTL BOTH EYES SCH (23:00)
[2019-03-31] MEDS: Morphine TAB Extended Release (*) 30 MG TAB.ER PO SCH ×2 (01:07→07:12)
--- NOTE | 2019-03-31 06:24 | ED ---
GI/ HPI - HPI Summary HPI Summary: Patient is a 63-year-old male with a history of multiple myeloma presenting to the ED after routine lab work from [facility] discovered a 5.8 hemoglobin. He has needed transfusions in the past following chemotherapy, however he states he has not had chemotherapy for some time. His last infusion was on 02/25. Following this, while on vacation he developed fatigue and confusion and subsequently he was admitted for septicemia in the ICU while on vacation. Per , this was from urine. Patient does have a Martin catheter. Patient states he is very weak as states same. This is worse than his normal. Unsure of stool or other etiologies of low hemoglobin. - History of Current Complaint Chief Complaint: EDGeneral Time Seen by Provider: 03/30/19 11:26 Stated Complaint: LOW HEMOGLOBIN LEVELS PER EMS Hx Obtained From: Patient Onset/Duration: Started Hours Ago Timing: Constant Severity: Moderate Current Severity: Moderate Pain Intensity: 7 Associated Signs and Symptoms: Positive: Negative Aggravating Factor(s): Nothing Alleviating Factor(s): Nothing - Additional Pertinent History Primary Care Physician: [id number] - Allergy/Home Medications Allergies/Adverse Reactions: Allergies Allergy/AdvReac Type Severity Reaction Status Date / Time Penicillins Allergy Severe Hives Verified 11/22/18 13:57 Home Medications: Home Medications Acyclovir* [Zovirax 400 MG TAB*] 400 mg PO BID 03/30/19 [History Confirmed 03/30] Carbamide Peroxide 6.5% OTIC* [DEBROX 6.5% Otic*] 5 drop OTIC DAILY 03/30/19 [ History Confirmed 03/30/19] Heparin Sodium,Porcine/Pf [Heparin Lock Flush 10 Units/ml] 10 unit IV BID [History Confirmed 03/30/19] Morphine TAB Extended Rel(*) [Ms Contin(*)] 30 mg PO BID 03/30/19 [History Confirmed 03/30/19] Morphine TAB Extended Rel(*) [Ms Contin(*)] 30 mg PO ONCE 03/30/19 [History Confirmed 03/30/19] Senna/Docusate (NF) [Sennokot-S] 2 tab PO DAILY 03/30/19 [History Confirmed ] Sodium Chloride Flush* [Saline Flush*] 0.9 % IJ BID 03/30/19 [History Confirmed 03/30/19] Timolol 0.5% OPTH.ILIA* [Timoptic 0.5% Opth*] 1 drop BOTH EYES BEDTIME 03/30/19 [ History Confirmed 03/30/19] oxyCODONE SR TAB(*) [Oxycontin 40 mg (*)] 40 mg PO BID 03/30/19 [History Confirmed 03/30/19] oxyCODONE TAB* [Roxycodone TAB 5 mg*] 10 mg PO Q4H PRN 03/30/19 [History Confirmed 03/30/19] PMH/Surg Hx/FS Hx/Imm Hx Previously Healthy: No Endocrine/Hematology History: Reports: Hx Blood Disorders - Multiple Myeloma, Hx Diabetes Denies: Hx Anticoagulant Therapy - daily ASA Cardiovascular History: Denies: Hx Cardiac Arrest, Hx Hypertension, Hx Myocardial Infarction, Hx Pacemaker/ICD Respiratory History: Denies: Hx Asthma, Hx Chronic Obstructive Pulmonary Disease (COPD) GI History: Reports: Other GI Disorders - hernia Denies: Hx Gastroesophageal Reflux Disease History: Denies: Hx Chronic Renal Failure, Hx Kidney Stones, Hx Renal Disease Musculoskeletal History: Reports: Other Musculoskeletal History - Rt hemithorax w/ multiple fx's Sensory History: Reports: Hx Glaucoma - uses medicated eye drops, Hx Hearing Problem Denies: Hx Contacts or Glasses, Hx Hearing Aid Opthamlomology History: Reports: Hx Glaucoma - uses medicated eye drops Denies: Hx Contacts or Glasses Neurological History: Reports: Hx Peripheral Neuropathy - B/L feet 2ndry to chemo, Other Neuro Impairments/Disorders - facial palsey Psychiatric History: Denies: Hx Panic Disorder - Cancer History Cancer Type, 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 - Surgical History Surgery Procedure, Year, and Place: TONSILS, RT KNEE SURGERY WITH HARDWARE, laser eye for glaucoma - Immunization History Date of Influenza Vaccine: jul 2018 Hx Pertussis Vaccination: No Immunizations Up to Date: Yes Infectious Disease History: No Infectious Disease History: Denies: Traveled Outside the [place] in Last 30 Days - Family History Known Family History: Positive: Diabetes - Social History Occupation: Unemployed Lives: At [facility] Alcohol Use: None Hx Substance Use: No Substance Use Type: Reports: None Hx Tobacco Use: Yes - not currently Smoking Status (MU): Former Smoker Review of Systems Positive: Fatigue, Skin Diaphoresis. Negative: Fever, Chills Negative: Palpitations, Chest Pain Negative: Shortness Of Breath, Cough Negative: Vomiting, Diarrhea, Nausea Genitourinary: Other - indweeling martin catheter Negative: Arthralgia, Myalgia Skin: Negative Positive: Weakness All Other Systems Reviewed And Are Negative: Yes Physical Exam Triage Information Reviewed: Yes Vital Signs On Initial Exam: Initial Vitals Temp Pulse Resp BP Pulse Ox 97.9 F 84 16 94/49 97 03/30/19 11:25 03/30/19 11:25 03/30/19 11:25 03/30/19 11:25 03/30/19 11:25 Vital Signs Reviewed: Yes Appearance: Positive: Ill-Appearing, Thin, Cachectic Skin: Positive: Other - sacral ulceration Head/Face: Positive: Normal Head/Face Inspection Eyes: Positive: EOMI, Conjunctiva Clear Neck: Positive: No Lymphadenopathy. Negative: Supple Respiratory/Lung Sounds: Positive: Clear to Auscultation, Breath Sounds Present Cardiovascular: Positive: RRR, Pulses are Symmetrical in both Upper and Lower Extremities Abdomen Description: Positive: Nontender, No Organomegaly, Soft Musculoskeletal: Positive: Other - weakness throughout Psychiatric: Positive: Normal Diagnostics - Vital Signs Vital Signs Temp Pulse Resp BP Pulse Ox 03/30/19 14:30 97.9 F 80 16 98/49 96 03/30/19 14:14 16 03/30/19 14:00 81 22 96 03/30/19 13:56 85 15 98/49 96 03/30/19 13:00 79 13 96 03/30/19 12:56 81 17 85/50 97 03/30/19 12:25 81 16 91/43 97 03/30/19 12:00 78 20 90 03/30/19 11:56 89 15 92/46 96 03/30/19 11:30 24 94/49 03/30/19 11:26 87 03/30/19 11:25 97.9 F 85 16 94/49 95 - Laboratory Lab Results: Lab Results 03/30/19 03/30/19 03/30/19 Range/Units 12:15 14:10 14:10 WBC 7.2 (3.5-10.8) 10^3/uL RBC 2.02 L (4.18-5.48) 10^6 /uL Hgb 5.7 L* (14.0-18.0) g/dL Hct 17 L (42-52) % MCV 86 (80-94) fL MCH 28 (27-31) pg MCHC 33 (31-36) g/dL RDW 18 H (10-15) % Plt Count 90 L (150-450) 10^3/uL MPV 8.2 (7.4-10.4) fL Neut % (Auto) 86.2 % Lymph % (Auto) 5.1 % Stewart % (Auto) 8.6 % Eos % (Auto) 0.0 % Baso % (Auto) 0.1 % Absolute Neuts (auto) 6.2 (1.5-7.7) 10^3/ul Absolute Lymphs (auto) 0.4 L (1.0-4.8) 10^3/ul Absolute Monos (auto) 0.6 (0-0.8) 10^3/ul Absolute Eos (auto) 0.0 (0-0.6) 10^3/ul Absolute Basos (auto) 0.0 (0-0.2) 10^3/ul Absolute Nucleated RBC 0.0 10^3/ul Nucleated RBC % 0.0 INR (Anticoag Therapy) 1.45 H (0.82-1.09) Lactic Acid (0.5-2.0) mmol/L Urine Color Taryn Urine Appearance Turbid Urine pH 5.0 (5-9) Ur Specific [place] 1.015 (1.010-1.030) Urine Protein 1+(30 mg/dl) A (Negative) Urine Ketones Negative (Negative) Urine Blood 2+ A (Negative) Urine Nitrate Negative (Negative) Urine Bilirubin Negative (Negative) Urine Urobilinogen Positive A (Negative) Ur Leukocyte Esterase 3+ A (Negative) Urine WBC (Auto) 3+(>20/hpf) A (Absent) Urine RBC (Auto) 3+(>10/hpf) A (Absent) Urine Bacteria 3+ A (Absent) Urine Glucose Negative (Negative) Blood Type Antibody Screen Crossmatch 03/30/19 03/30/19 Range/Units 14:10 14:10 WBC (3.5-10.8) 10^3/uL RBC (4.18-5.48) 10^6 /uL Hgb (14.0-18.0) g/dL Hct (42-52) % MCV (80-94) fL MCH (27-31) pg MCHC (31-36) g/dL RDW (10-15) % Plt Count (150-450) 10^3/uL MPV (7.4-10.4) fL Neut % (Auto) % Lymph % (Auto) % Stewart % (Auto) % Eos % (Auto) % Baso % (Auto) % Absolute Neuts (auto) (1.5-7.7) 10^3/ul Absolute Lymphs (auto) (1.0-4.8) 10^3/ul Absolute Monos (auto) (0-0.8) 10^3/ul Absolute Eos (auto) (0-0.6) 10^3/ul Absolute Basos (auto) (0-0.2) 10^3/ul Absolute Nucleated RBC 10^3/ul Nucleated RBC % INR (Anticoag Therapy) (0.82-1.09) Lactic Acid 1.4 (0.5-2.0) mmol/L Urine Color Urine Appearance Urine pH (5-9) Ur Specific [place] (1.010-1.030) Urine Protein (Negative) Urine Ketones (Negative) Urine Blood (Negative) Urine Nitrate (Negative) Urine Bilirubin (Negative) Urine Urobilinogen (Negative) Ur Leukocyte Esterase (Negative) Urine WBC (Auto) (Absent) Urine RBC (Auto) (Absent) Urine Bacteria (Absent) Urine Glucose (Negative) Blood Type A Positive Antibody Screen Negative Crossmatch See Detail Result Diagrams: 03/30/19 14:10 Lab Statement: Any lab studies that have been ordered have been reviewed, and results considered in the medical decision making process. GIGU Course/Dx - Course Course Of Treatment: During the ED course, the patient's evaluated for low hbg at 5.8. unsure of source. Patient does have multiple myeloma. He also has an indwelling Martin catheter. I discussed case upon arrival with Dr. Vee on how to proceed with admissions and transfusions. Oncology will admit. Labs including blood cultures, urine and transfusion protocol was initiated. Patient is admitted. - Diagnoses Differential Diagnoses - Male: Dehydration, Urinary Tract Infection, Other - septicemia Provider Diagnoses: multilpe meyloma, Fever and neutropenia, Low hemoglobin Discharge - Sign-Out/Discharge Documenting (check all that apply): Patient Departure All imaging exams completed and their final reports reviewed: Yes Patient Received Moderate/Deep Sedation with Procedure: No - Discharge Plan Condition: Fair Disposition: ADMITTED TO [facility] for incurables Disposition and Condition Condition: FAIR Disposition: Admitted to [facility]
[2019-03-31 06:36] LABS: ABS Lymphocytes 0.4 10^3/ul (1.0-4.8); ABS Monocytes 0.6 10^3/ul (0-0.8); ABS Neutrophils 5.1 10^3/ul (1.5-7.7); Hematocrit 20 % (42-52); Hemoglobin 6.9 g/dL (14.0-18.0); Lymphocyte % 5.9 %; Mean Corpuscular HGB Conc 34 g/dL (31-36); Mean Corpuscular Hemoglobin 29 pg (27-31); Mean Corpuscular Volume 84 fL (80-94); Mean Platelet Volume 8.7 fL (7.4-10.4); Platelet Count 71 10^3/uL (150-450); Red Cell Distribution Width 19 % (10-15); White Blood Count 6.1 10^3/uL (3.5-10.8)
[2019-03-31] MEDS: Morphine 4 MG/ML VIAL (1 ml) 4 MG/ML VIAL IV PRN ×2 (06:42→16:48)
[2019-03-31 06:57] LABS: Albumin 2.3 g/dL (3.2-5.2); Albumin/Globulin Ratio 0.9 (1-3); BUN/Creatinine Ratio 61.7 (8-20); Calcium 7.6 mg/dL (8.6-10.3); Globulin 2.6 g/dL (2-4); Potassium 4.6 mmol/L (3.5-5.0); Total Bilirubin 1.3 mg/dL (0.2-1.0); Total Protein 4.9 g/dL (6.4-8.9)
[2019-03-31] MEDS: Senna TAB 8.6 mg* TAB PO SCH (07:12)
[2019-03-31] MEDS: Dexamethasone TAB* 4 MG PO SCH ×3 (07:13→21:54)
[2019-03-31] MEDS: Sulfamethox/Trimethoprim DS 800/160* TAB PO SCH (07:13)
[2019-03-31] MEDS: Acyclovir* 400 MG TAB PO SCH ×2 (07:13→22:06)
[2019-03-31] MEDS: Docusate CAP* 100 MG PO SCH (07:13)
[2019-03-31] MEDS: glipiZIDE TAB.XL* 2.5 MG PO SCH (07:13)
[2019-03-31] MEDS ORDERED: oxyCODONE SR TAB(*) 40 MG TAB.SR PO SCH (09:00)
[2019-03-31] MEDS: Meropenem(*) 2 GM in NS 0.9% 100 ML* 100 ML IVPB SCH ×2 (10:11→21:57)
[2019-03-31] MEDS: oxyCODONE TAB* 5 MG TAB PO PRN (10:13)
[2019-03-31] MEDS: Enoxaparin(*) 40 MG/0.4 ML SYR SUBCUT SCH (13:52)
--- NOTE | 2019-03-31 18:50 | CONS ---
CONSULTATION REPORT: DATE OF ADMISSION: 03/30/19 DATE OF CONSULT: 03/31/19 PRIMARY CARE PROVIDER: Dr. Maldonado. PRIMARY ONCOLOGIST: Dr. Martínez Vee. CONSULTING SERVICE: Infectious disease. PROVIDER: Carrillo Harvey NP. ATTENDING PROVIDER: Dr. Siddharth Marion.* (DICTATED BY CARRILLO HARVEY NP) REASON FOR CONSULTATION: Gram-negative bacteremia in the setting of E. coli urinary tract infection. IMPRESSION: 1. Gram-negative bacteremia in the setting of a urinary catheter that has been present for approximately 4 weeks. The patient was found to have Escherichia coli urinary tract infection and has been afebrile since his admission. No leukocytosis. No abdomen or renal bladder imaging has been completed. The patient is also noted to have a PICC line; suspect this has seeded. 2. Diabetes mellitus type 2. 3. Multiple myeloma. 4. Sacral unstageable pressure injury. PLAN/RECOMMENDATIONS: Recommend continuing meropenem for now while we wait final culture and sensitivities. The patient should also have a renal bladder ultrasound to evaluate for causes contributing to his persistent E. coli urinary tract infection. The patient is noted to have a PICC line, this should be removed as it is likely seeded. HISTORY OF PRESENT ILLNESS: Mr. Ni is a 63-year-old male with past medical history significant for diet-controlled diabetes mellitus type 2, multiple myeloma who is very drowsy and the patient's provides most of the information in addition to reviewing KO Parker's history and physical. The patient had been last seen by the oncology office for a carfilzomib infusion on 02/25/19, after which he went on a family vacation to [place]. During his vacation in [place], he developed lethargy and confusion, was taken to the emergency room where he was found to be tachycardic and hypotensive, and admitted to the intensive care unit for septic shock requiring pressor support. The patient was later found to have ESBL E. coli from a urinary source. He had a urinary catheter placed prior to his trip due to urinary retentions felt to be secondary to a tumor infiltration into the spinal canal, affecting the sacral nerve. This urinary catheter was originally placed around 03/06/[address] until 03/19/19, according to his . She states that the catheter was changed out on 03/19/19. The patient improved and was discharged to [facility] after receiving 7 days of imipenem. He received 3 more days of imipenem via PICC line that was placed at the hospital in [place]. He completed the antibiotics on 03/22/19. The patient had been doing well at [facility], but continued to have intermittent fevers with the last 3 days prior to his admission. He had routine lab work drawn at [place] showing a hemoglobin of 5.8 and the patient was transferred to the emergency room for an urgent blood transfusion. While in the emergency room, the patient was found to have repeat hemoglobin of 5.7, no leukocytosis, thrombocytopenia with a platelet count of 90. Urinalysis significant for 1+ protein, 2+ blood, positive urobilinogen, 3+ leukocyte esterase, 3+ wbc's, 3+ rbc's, 3+ bacteria, negative for nitrites. His urinary catheter was changed. During his hospitalization, he has been afebrile, continued to have no leukocytosis. Repeat urinalysis during admission with blood 2+, positive nitrites, 3+ leukocyte esterase, 3+ wbc's, 3+ rbc's, 3+ bacteria. He continued to be lethargic and drowsy. Blood cultures drawn in the emergency room with preliminary results showing Gram-negative bacilli in 2/2 bottles. Urine culture with E. coli greater than 100,000. The patient is also noted to have a sacral pressure injury with necrotic tissue. Currently denies fevers, chills, joint pain, muscle pain, diarrhea, abdominal pain. According to his , he has been having leg and back pain for 3 years due to his multiple myeloma. The patient is currently denying back pain or pain in his legs. His reports that his last fever was Friday prior to his admission. PAST MEDICAL HISTORY: 1. Diabetes mellitus type 2. 2. Multiple myeloma. PAST SURGICAL HISTORY: 1. Right knee surgery. 2. Glaucoma laser surgery. MEDICATIONS: Home Medications: 1. Morphine extended release 30 mg by mouth once as needed for breakthrough pain. 2. Morphine extended release 30 mg by mouth twice daily. 3. Bactrim DS 800/160 one tablet by mouth Friday, Friday, Friday. 4. Senokot-S 2 tablets by mouth daily. 5. Oxycodone 10 mg by mouth every 4 hours as needed for pain. 6. OxyContin SR 40 mg by mouth twice daily. 7. Heparin 10 units IV twice daily. 8. Glipizide 2.5 mg by mouth daily. 9. Decadron 4 mg by mouth 3 times daily. 10. Debrox 5 drops to ear daily. 11. Timolol 0.5% one drop to both eyes at bedtime. 12. Sodium chloride flush 0.9% via PICC line twice daily prior to heparin. 13. Acyclovir 400 mg by mouth twice daily. 14. Acetaminophen 650 mg by mouth daily as needed for pain. Hospital Medications: 1. Acetaminophen 650 mg by mouth every 4 hours as needed for fever or pain. 2. Acyclovir 400 mg by mouth twice daily. 3. Dexamethasone 4 mg by mouth 3 times daily. 4. Colace 100 mg by mouth daily. 5. Enoxaparin 40 mg subcutaneous daily. 6. Glipizide 2.5 mg by mouth daily. 7. Heparin sodium 1 mL flush twice daily. 8. Meropenem 2 g IV every 12 hours. 9. Morphine sulfate 4 mg IV every 4 hours as needed for pain. 10. Ondansetron 4 mg IV every 4 hours as needed for nausea. 11. Oxycodone 30 mg by mouth every 4 hours as needed for pain. 12. OxyContin 60 mg by mouth twice daily. 13. Senna 2 tablets by mouth daily. 14. Timolol 0.5 one drop to both eyes at bedtime. 15. Bactrim DS 800 mg/160 mg 1 tablet by mouth Friday, Friday, and Friday. ALLERGIES: PENICILLIN, reports hives as a child. FAMILY HISTORY: No family history of recurrent resistant infection. Paternal grandparents with MIs in their 70s and 80s. Father, paternal uncle, and paternal aunt also with history of heart disease. Mother, father, sister, and brother with a history of diabetes. Mother with a history of cervical cancer. SOCIAL HISTORY: Occasionally drinks alcohol. Denies recreational drug use. He is a former smoker. He quit smoking over 30 years ago. Prior to that, had 8 -year 1- 1/0-kqnt-z-day smoking history. REVIEW OF SYSTEMS: I performed a 10-point review of systems. All the pertinent positives and negatives are mentioned in the history of present illness. The remaining review of systems are negative. PHYSICAL EXAM: Vital Signs: Temperature 98.0, heart rate 72, respiratory rate 18, O2 sat 98% on room air, blood pressure 96/56. General Appearance: The patient is alert and appears to be in no acute distress. Head: Normocephalic, atraumatic. ENT: Pupils are equal and reactive to light. Extraocular movements are intact. Mucous membranes are moist. Neck: Supple. No lymphadenopathy. Neurological: Drowsy, oriented to person and place. Cranial nerves II through XII are grossly intact. No focal neurological deficits of the lower extremities. Cardiovascular: Heart rate is regular. No murmurs, rubs , or gallops heard. Respiratory: No accessory muscle use. Lungs: Clear to auscultation. Abdomen: Bowel sounds present. Abdomen is soft, nontender, and nondistended and there is no CVA tenderness bilateral. Extremities: No lower extremity edema. Musculoskeletal: No clubbing or cyanosis noted. He has generalized weakness. He has no tenderness with palpation of the neck, back, or spine. Psychological: Calm and cooperative. Skin: The patient has an unstageable pressure injury to the sacrum in addition to a stage II pressure injury to his left buttock. There is no surrounding erythema, some minimal serosanguineous drainage from the wound. DIAGNOSTIC STUDIES/LAB DATA: Sodium 136, potassium 4.6, chloride 106, CO2 of 24 , BUN 29, creatinine 0.47, glucose 90. White blood cell count 6.1, hemoglobin 6.9, hematocrit 20, platelet count 71. Please see impression and recommendations outlined above. Thank you for asking us to see Mr. Ni in consultation. Recommendations have been discussed with Dr. Vee. The case has been reviewed with my attending, Dr. Marion, who agrees with the plan of care. Reviewed by CRUZ QUINTANILLA 04/02/19 1220 [id number]/[facility] #: [id number] DARRYL
[2019-03-31] MEDS: oxyCODONE SR TAB(*) 20 MG TAB.SR PO SCH (21:55)
[2019-03-31] MEDS: Timolol 0.5% OPTH.SOL* BTL BOTH EYES SCH (22:07)
[2019-04-01] MEDS: oxyCODONE TAB* 5 MG TAB PO PRN ×3 (06:32→17:37)
[2019-04-01] MEDS: oxyCODONE SR TAB(*) 20 MG TAB.SR PO SCH ×2 (09:28→21:08)
[2019-04-01] MEDS: Acyclovir* 400 MG TAB PO SCH ×2 (09:29→21:07)
[2019-04-01] MEDS: Senna TAB 8.6 mg* TAB PO SCH (09:30)
[2019-04-01] MEDS: Dexamethasone TAB* 4 MG PO SCH ×2 (09:30→21:07)
[2019-04-01] MEDS: Docusate CAP* 100 MG PO SCH (09:30)
[2019-04-01] MEDS: glipiZIDE TAB.XL* 2.5 MG PO SCH (09:37)
[2019-04-01 09:46] LABS: ABS Lymphocytes 0.4 10^3/ul (1.0-4.8); ABS Monocytes 0.8 10^3/ul (0-0.8); ABS Neutrophils 5.5 10^3/ul (1.5-7.7); Eosinophil % 0.1 %; Hematocrit 23 % (42-52); Hemoglobin 7.3 g/dL (14.0-18.0); Lymphocyte % 6.3 %; Mean Corpuscular HGB Conc 33 g/dL (31-36); Mean Corpuscular Hemoglobin 28 pg (27-31); Mean Corpuscular Volume 86 fL (80-94); Mean Platelet Volume 8.9 fL (7.4-10.4); Platelet Count 52 10^3/uL (150-450); Red Blood Count 2.62 10^6 /uL (4.18-5.48); Red Cell Distribution Width 20 % (10-15); White Blood Count 6.7 10^3/uL (3.5-10.8)
[2019-04-01 10:04] LABS: Albumin 2.4 g/dL (3.2-5.2); Albumin/Globulin Ratio 0.9 (1-3); BUN/Creatinine Ratio 47.2 (8-20); EGFR African American 190.6 (>60); EGFR Non-African American 157.5 (>60); Globulin 2.8 g/dL (2-4); Potassium 4.8 mmol/L (3.5-5.0); Total Bilirubin 0.7 mg/dL (0.2-1.0); Total Protein 5.2 g/dL (6.4-8.9)
[2019-04-01] MEDS: Meropenem(*) 2 GM in NS 0.9% 100 ML* 100 ML IVPB SCH ×2 (11:31→22:22)
[2019-04-01] MEDS: Morphine 4 MG/ML VIAL (1 ml) 4 MG/ML VIAL IV PRN ×2 (12:01→16:10)
[2019-04-01] MEDS: Enoxaparin(*) 40 MG/0.4 ML SYR SUBCUT SCH (13:34)
[2019-04-01] MEDS: Acetaminophen TAB* 325 MG PO PRN (14:51)
--- NOTE | 2019-04-01 15:14 | PN ---
Progress Note - Progress Note Date of Service: 04/01/19 SOAP: Subjective: CC: Bacteremia HPI: Mr. Ni is a 63 yo male with PMH significant for DM2 and multiple myeloma; who presented to the emergency room for anemia and was found to be febrile. Denies fever, chills, shortness of breath, cough, ABD pain, nausea, vomiting, or diarrhea. Objective: Vital Signs - 8 hr 04/01/19 04/01/19 04/01/19 09:28 11:15 11:25 Temperature 97.1 F Pulse Rate 89 Respiratory 17 16 17 Rate Blood Pressure 84/42 (mmHg) O2 Sat by Pulse 97 Oximetry Physical Exam: General: NAD, laying in bed Neurological: Alert and Oriented to person and place HEENT: Moist MM Cardiovascular: Heart rate Respiratory: Lung sound clear, diminished in the bases Abdominal: Bowel sounds; ABD soft, non tender and non distended MSK: No tenderness with palpation of the neck, back or spine Skin: No rash. There is an unstageable pressure injury to the sacrum, no concern for infection Laboratory Results - last 24 hr 04/01/19 04/01/19 09:23 09:23 WBC 6.7 RBC 2.62 L Hgb 7.3 L Hct 23 L MCV 86 MCH 28 MCHC 33 RDW 20 H Plt Count 52 L MPV 8.9 Neut % (Auto) 82.1 Lymph % (Auto) 6.3 Humphreys % (Auto) 11.4 Eos % (Auto) 0.1 Baso % (Auto) 0.1 Absolute Neuts (auto) 5.5 Absolute Lymphs (auto) 0.4 L Absolute Monos (auto) 0.8 Absolute Eos (auto) 0.0 Absolute Basos (auto) 0.0 Absolute Nucleated RBC 0.0 Nucleated RBC % 0.0 Sodium 136 Potassium 4.8 Chloride 103 Carbon Dioxide 26 Anion Gap 7 BUN 25 H Creatinine 0.53 L Est GFR ( Amer) 190.6 Est GFR (Non-Af Amer) 157.5 BUN/Creatinine Ratio 47.2 H Glucose 117 H Calcium 8.0 L Total Bilirubin 0.70 AST 8 L ALT 16 Alkaline Phosphatase 167 H Total Protein 5.2 L Albumin 2.4 L Globulin 2.8 Albumin/Globulin Ratio 0.9 L Microbiology 03/30/19 12:15 Urine Culture - Final Urine Escherichia Coli 03/30/19 14:10 Aerobic Blood Culture - Final Blood Line Escherichia Coli Anaerobic Blood Culture - Final Escherichia Coli Assessment: 1. Gram negative bacteremia. Recently hospitalized in [place] for ESBL E coli bacteremia and UTI, was discharged and completed a course of IV ABX at [facility]. E coli in urine culture and 2/2 blood cultures in the setting of a PICC line and urinary catheter. Suspect that the post is seeded. Urinary catheter was exchanged at time of admission. PICC line remains in due to difficulty getting new IV access. Renal/bladder US from yesterday shows "exophytic solid lesion anterior cortex kidney, and incidentally noted heterogenous echotexture of the liver, suggestion of masses". No leukocytosis and afebrile. 2. DM2. 3. Unstageable sacral pressure injury. No signs of infection. 4. Multiple myeloma. Plan: Recommend replacing PICC line as soon as possible (ok to leave in and use until new line is able to be placed). Continue meropenum. Will obtain a ABD/Pelvis CT with IV contrast to evaluate the the lesion and mass seen on renal/bladder US to see if these represent abscess.
[2019-04-01] MEDS ORDERED: Iodixanol* (CONTRAST) 320 MG/ML 100 ML SDV IV ONE (17:46)
--- NOTE | 2019-04-01 18:49 | CONSULT ---
Subjective Date of Service: 04/01/19 Interval History: Mr. Ni is a 63 yo male with PMH significant for DM2 and multiple myeloma; who presented to the emergency room for anemia and was found to be febrile. He was found to have persistent bacteremia and a UTI in the setting of a urinary catheter and PICC line. Patient presented to the [facility] with an unstageable pressure injury to his sacrum. Patient seen and examined at bedside. Family History: Unchanged from Admission Social History: Unchanged from Admission Past Medical History: Unchanged from Admission Review of Systems - Measurements Intake and Output: Intake and Output Last 24 Hours 03/30/19 03/31/19 04/01/19 04/02/19 06:59 06:59 06:59 06:59 Intake Total 260 1300 220 Output Total 1080 2000 800 Balance -820 -700 -580 Weight 139 lb 3.2 oz Intake: IV Fluids 20 100 meropenem 20 100 IVPB 140 meropenem 140 Oral 260 1140 120 Output: Urine 480 750 Jefferson 600 1250 800 Other: # Bowel Movements 0 0 - Review of Systems Constitutional Symptoms: Negative: Fever, Other - Chills Dermatology: Positive: Other - Skin breakdown to buttocks Objective Active Medications: Acetaminophen (Tylenol Tab*) 650 mg PO Q4H PRN Reason: FEVER/PAIN Acyclovir (Zovirax Tab*) 400 mg PO BID [facility] Dexamethasone (Decadron Tab*) 4 mg PO BID [facility] Docusate Sodium (Colace Cap*) 100 mg PO DAILY [facility] Enoxaparin Sodium (Lovenox(*)) 40 mg SUBCUT Q24H [facility] Glipizide (Glucotrol Xl*) 2.5 mg PO DAILY [facility] Heparin Sodium (Porcine) (Heparin Flush Picc/Ml/Cvc(*)) 1 ml FLUSH 0600,1800 [facility]; Protocol Meropenem 2 gm/ Sodium (Chloride) 140 mls @ 280 mls/hr IVPB Q12H [facility]; Protocol Morphine Sulfate (Morphine 4 Mg/Ml Vial (1 Ml)) 4 mg IV Q4H PRN Reason: PAIN Ondansetron HCl (Zofran Inj*) 4 mg IV Q4H PRN Reason: NAUSEA/VOMITING Oxycodone HCl (Roxycodone Tab*) 30 mg PO Q4H PRN Reason: PAIN Oxycodone HCl (Oxycontin(*)) 60 mg PO BID [facility] Senna (Senokot Tab*) 2 tab PO DAILY [facility] Timolol Maleate (Timoptic 0.5% Opth*) 1 drop BOTH EYES BEDTIME [facility] Trimethoprim/Sulfamethoxazole (Bactrim Ds 800/160 Tab*) 1 tab PO MoWeFr@0900 [facility] Vital Signs 04/01/19 04/01/19 04/01/19 11:15 11:25 12:01 Temperature 97.1 F Pulse Rate 89 Respiratory 16 17 17 Rate Blood Pressure 84/42 (mmHg) O2 Sat by Pulse 97 Oximetry Oxygen Devices in Use Now: None Appearance: NAD, laying in bed Ears/Nose/Mouth/Throat: Mucous Membranes Moist Respiratory: Symmetrical Chest Expansion and Respiratory Effort Skin: - - see skin note below Neurological: - - Alert and Oriented to person and place Nutrition: Taking PO's - Nutrition: Malnutrition Diagnosis/Plan Malnutrition Assessment by Registered Dietitian: Malnutrition Assessment Clinical Characteristics Acute,Severe Malnutrition Assessment: - Moderate temporal muscle wasting Criteria - 38# (21%) wt loss x past ~ 1 month (per [facility] records) Malnutrition Assessment: Pt willing to try Ensure Enlive w/ meals. 350 Interventions kcals, 20 grams protein per serving. Will follow intake and glycemic control. Malnutrition Assessment: Goals 1. Adequate PO intake to promote repletion of lean body mass, maintain hydration, and prevent additional wt loss 2. High protein meals/snacks as able 3. Adequate glycemic control w/o need for a dietary carbohydrate restriction Result Diagrams: 04/02/19 06:34 04/01/19 09:23 Additional Lab and Data: Above labs pulled into the note when edited prior to signing the note, please see labs below from day of consultation. Laboratory Results 04/01/19 04/01/19 09:23 09:23 WBC 6.7 RBC 2.62 L Hgb 7.3 L Hct 23 L MCV 86 MCH 28 MCHC 33 RDW 20 H Plt Count 52 L MPV 8.9 Neut % (Auto) 82.1 Lymph % (Auto) 6.3 [place] % (Auto) 11.4 Eos % (Auto) 0.1 Baso % (Auto) 0.1 Absolute Neuts (auto) 5.5 Absolute Lymphs (auto) 0.4 L Absolute Monos (auto) 0.8 Absolute Eos (auto) 0.0 Absolute Basos (auto) 0.0 Absolute Nucleated RBC 0.0 Nucleated RBC % 0.0 Sodium 136 Potassium 4.8 Chloride 103 Carbon Dioxide 26 Anion Gap 7 BUN 25 H Creatinine 0.53 L Est GFR ( Amer) 190.6 Est GFR (Non-Af Amer) 157.5 BUN/Creatinine Ratio 47.2 H Glucose 117 H Calcium 8.0 L Total Bilirubin 0.70 AST 8 L ALT 16 Alkaline Phosphatase 167 H Total Protein 5.2 L Albumin 2.4 L Globulin 2.8 Albumin/Globulin Ratio 0.9 L Microbiology and Other Data: Microbiology 03/30/19 12:15 Urine Culture - Final Urine Escherichia Coli 03/30/19 14:10 Aerobic Blood Culture - Final Blood Line Escherichia Coli Anaerobic Blood Culture - Final Escherichia Coli Skin Deviation Note - Skin Deviation Findings Sacrum - Large wound measures 6.5 cm x 10 cm x 0.1 cm. There is an area in the center of the wound with dark colored eschar, measures 2.5 cm x 3 cm x 0.1 cm. There is a superficial open area to the right lower back, measures 3 cm x 4 cm x 0.1 cm. There is a small wound to the left ischium that measures 1.6 cm x 1 cm x 0.1 cm. The surrounding skin is intact with blanchable erythema. There is serous and serosang drainage from the wounds. No odor. Assessment/Plan: Mr. Ni is a 63 yo male with PMH significant for DM2 and multiple myeloma; who presented to the emergency room for anemia and was found to be febrile. He is being treated for persistent bacteremia and E coli UTI. Presented to the hospital with skin breakdown. 1. Unstageable pressure injury to the sacrum with associated shearing injuring to the left lower back/buttocks. Recommend applying barrier cream to the area. If the area of eschar does not continue to improve on its own (decreased from yesterday), consider apply Santyl to the area once daily and barrier cream to the rest of the open skin. Frequent turning and repositioning. If he is not incontinent of stool use only a draw sheet to move the patient in bed. Use a lifting device to move in bed to decrease friction and risk of shearing injury. 2. Left ischium stage 2 pressure injury. Recommend applying barrier cream to the area. 3. Severe malnutrition. as evidenced by moderate temporal muscle wasting, 38 lbs (21%) wt loss x past ~ 1 month (per [facility] records). Dietitian following 4. Multiple myloma. 5. Diet. Regular diet. 6. Code Status. DNR. 7. Disposotion. Inpatient, disposition per primary team. TIME SPENT: Time for this wound consultation was 30 minutes and 20 minutes was spent with the patient and discussing past medical history; assessing, measuring, and photographing the wound. Wound Problem/Plan Is Patient a Wound Clinic Patient: No Attending: Milli Villela
[2019-04-01 20:35] LABS: Immunoglobulin A 286 mg/dL (61 - 356); Immunoglobulin G 418 mg/dL (767 - 1590); Immunoglobulin M 19 mg/dL (37 - 286); Kappa Free Light Chain <0.6300 mg/dL; Lambda Free Light Chain 11.7 mg/dL
[2019-04-01] MEDS: Timolol 0.5% OPTH.SOL* BTL BOTH EYES SCH (21:07)
[2019-04-02 06:55] LABS: ABS Lymphocytes 0.4 10^3/ul (1.0-4.8); ABS Monocytes 0.5 10^3/ul (0-0.8); Eosinophil % 0.1 %; Hematocrit 19 % (42-52); Lymphocyte % 7.3 %; Mean Corpuscular HGB Conc 34 g/dL (31-36); Mean Corpuscular Hemoglobin 29 pg (27-31); Mean Corpuscular Volume 85 fL (80-94); Platelet Count 51 10^3/uL (150-450); Red Blood Count 2.22 10^6 /uL (4.18-5.48); Red Cell Distribution Width 20 % (10-15)
[2019-04-02 07:35] LABS: Mean Platelet Volume 8.9 fL (7.4-10.4)
[2019-04-02 07:37] LABS: Hemoglobin 6.4 g/dL (14.0-18.0)
[2019-04-02] MEDS: Morphine 4 MG/ML VIAL (1 ml) 4 MG/ML VIAL IV PRN ×3 (07:52→18:53)
[2019-04-02] MEDS: oxyCODONE SR TAB(*) 20 MG TAB.SR PO SCH (07:56)
[2019-04-02] MEDS: Acyclovir* 400 MG TAB PO SCH ×2 (07:57→21:40)
[2019-04-02] MEDS: Sulfamethox/Trimethoprim DS 800/160* TAB PO SCH (07:57)
[2019-04-02] MEDS: Dexamethasone TAB* 4 MG PO SCH ×2 (07:57→21:40)
[2019-04-02] MEDS: Senna TAB 8.6 mg* TAB PO SCH ×2 (07:58→14:48)
[2019-04-02] MEDS: Docusate CAP* 100 MG PO SCH ×2 (07:58→14:48)
[2019-04-02] MEDS: glipiZIDE TAB.XL* 2.5 MG PO SCH (08:06)
[2019-04-02] MEDS: cefTRIAXone(*) 1 GM in NS 0.9% 50 ML* 50 ML IVPB SCH (10:22)
[2019-04-02] MEDS: oxyCODONE TAB* 5 MG TAB PO PRN ×2 (11:18→15:48)
[2019-04-02] MEDS: Enoxaparin(*) 40 MG/0.4 ML SYR SUBCUT SCH (14:00)
[2019-04-02] MEDS: oxyCODONE SR TAB(*) 40 MG TAB.SR PO SCH (21:40)
[2019-04-02] MEDS: oxyCODONE SR TAB(*) 10 MG TAB.SR PO SCH (21:40)
[2019-04-02] MEDS: Timolol 0.5% OPTH.SOL* BTL BOTH EYES SCH (21:40)
--- NOTE | 2019-04-02 22:02 | PN ---
Progress Note - Progress Note Date of Service: 04/02/19 SOAP: Subjective: [Reports he is feeling ok today. Pain is not well controlled. Reports pain is averaging ~7/10. Poor energy.] Objective: [ Vital Signs: Temp Pulse Resp BP Pulse Ox 97.4 F 77 16 89/37 96 04/02/19 17:20 04/02/19 17:20 04/02/19 21:40 04/02/19 17:20 04/02/19 17:20 Acetaminophen (Tylenol Tab*) 650 mg PO Q4H PRN PRN Reason: FEVER/PAIN Last Admin: 04/01/19 14:51 Dose: 650 mg Acyclovir (Zovirax Tab*) 400 mg PO BID [facility] Last Admin: 04/02/19 21:40 Dose: 400 mg Dexamethasone (Decadron Tab*) 4 mg PO BID [facility] Last Admin: 04/02/19 21:40 Dose: 4 mg Docusate Sodium (Colace Cap*) 100 mg PO DAILY [facility] Last Admin: 04/02/19 14:48 Dose: 100 mg Enoxaparin Sodium (Lovenox(*)) 40 mg SUBCUT Q24H [facility] Last Admin: 04/02/19 14:00 Dose: 40 mg Glipizide (Glucotrol Xl*) 2.5 mg PO DAILY [facility] Last Admin: 04/02/19 08:06 Dose: 2.5 mg Ceftriaxone Sodium 1 gm/ (Sodium Chloride) 50 mls @ 100 mls/hr IVPB Q24H [facility] Last Admin: 04/02/19 10:22 Dose: 100 mls/hr Morphine Sulfate (Morphine 4 Mg/Ml Vial (1 Ml)) 4 mg IV Q4H PRN PRN Reason: PAIN Last Admin: 04/02/19 18:53 Dose: 4 mg Ondansetron HCl (Zofran Inj*) 4 mg IV Q4H PRN PRN Reason: NAUSEA/VOMITING Oxycodone HCl (Oxycontin(*)) 80 mg PO BID [facility] Last Admin: 04/02/19 21:40 Dose: 80 mg Oxycodone HCl (Roxycodone Tab*) 30 mg PO Q3H PRN PRN Reason: PAIN Last Admin: 04/02/19 15:48 Dose: 30 mg Oxycodone HCl (Oxycontin(*)) 10 mg PO BID [facility] Last Admin: 04/02/19 21:40 Dose: 10 mg Senna (Senokot Tab*) 2 tab PO DAILY [facility] Last Admin: 04/02/19 14:48 Dose: 2 tab Timolol Maleate (Timoptic 0.5% Opth*) 1 drop BOTH EYES BEDTIME [facility] Last Admin: 04/02/19 21:40 Dose: 1 drop Trimethoprim/Sulfamethoxazole (Bactrim Ds 800/160 Tab*) 1 tab PO MoWeFr@0900 [facility] Last Admin: 04/02/19 07:57 Dose: 1 tab Laboratory Results - last 24 hr 03/30/19 04/02/19 04/02/19 14:10 06:34 06:34 WBC 6.0 RBC 2.22 L Hgb 6.4 L* Hct 19 L MCV 85 MCH 29 MCHC 34 RDW 20 H Plt Count 51 L MPV 8.9 Neut % (Auto) 83.8 Lymph % (Auto) 7.3 [place] % (Auto) 8.7 Eos % (Auto) 0.1 Baso % (Auto) 0.1 Absolute Neuts (auto) 5.0 Absolute Lymphs (auto) 0.4 L Absolute Monos (auto) 0.5 Absolute Eos (auto) 0.0 Absolute Basos (auto) 0.0 Absolute Nucleated RBC 0.0 Nucleated RBC % 0.0 Hypochromasia 2+ Anisocytosis 1+ Blood Type A Positive Antibody Screen Negative Crossmatch See Detail See Detail Exam: Gen: chronically ill appearing 63 yo male in [facility], appears older than stated age HEENT: MMM, missing teeth, no thrush CV: RRR, no m/r/g Resp: CTA, no w/c/r Abd: soft, nonTTP Ext: no edema, muscle wasting] Assessment: [This is a 63 yo male with advanced multiple myeloma recently hospitalized while on vacation in [place] with ESBL Ecoli septicemia who returned to our hospital with profound anemia found to have recurrent EColi septicemia of a urinary source.] Plan: [1. 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 MM - current therapy has been held - repeat SPEP/light chains pending but suspect significant progression 3. Anemia - s/p 2U PRBCs now with recurrent anemia - constipated so unlikely to be d/t GIB, but stool pending for occult blood - likely due to MM - transfuse 2 additional units of PRBCs today 4. Pain control - increase oxycontin to 90 mg bid and cont oxycodone IR 30 mg q4h prn 5. DNR Dispo: PT/OT consult today, reassess Friday but anticipate he will require [facility] placement]
[2019-04-03 05:48] LABS: Hematocrit 24 % (42-52); Hemoglobin 8.2 g/dL (14.0-18.0); Mean Corpuscular HGB Conc 34 g/dL (31-36); Mean Corpuscular Hemoglobin 29 pg (27-31); Mean Corpuscular Volume 85 fL (80-94); Mean Platelet Volume 9.3 fL (7.4-10.4); Platelet Count 54 10^3/uL (150-450); Red Blood Count 2.84 10^6 /uL (4.18-5.48); Red Cell Distribution Width 18 % (10-15); White Blood Count 6.9 10^3/uL (3.5-10.8)
[2019-04-03 06:03] LABS: Albumin 2.4 g/dL (3.2-5.2); Albumin/Globulin Ratio 0.9 (1-3); Calcium 7.9 mg/dL (8.6-10.3); EGFR African American 203.9 (>60); EGFR Non-African American 168.5 (>60); Globulin 2.7 g/dL (2-4); Potassium 4.7 mmol/L (3.5-5.0); Total Bilirubin 0.7 mg/dL (0.2-1.0); Total Protein 5.1 g/dL (6.4-8.9)
[2019-04-03 06:28] LABS: ABS Lymphocytes 0.5 10^3/ul (1.0-4.8); ABS Monocytes 0.6 10^3/ul (0-0.8); ABS Neutrophils 5.7 10^3/ul (1.5-7.7); Lymphocyte % 7.6 %; Nucleated Red Blood Cells % 0.1
[2019-04-03] MEDS: Morphine 4 MG/ML VIAL (1 ml) 4 MG/ML VIAL IV PRN (09:36)
[2019-04-03] MEDS: Senna TAB 8.6 mg* TAB PO SCH (09:42)
[2019-04-03] MEDS: glipiZIDE TAB.XL* 2.5 MG PO SCH (09:42)
[2019-04-03] MEDS: oxyCODONE SR TAB(*) 10 MG TAB.SR PO SCH ×2 (09:42→21:22)
[2019-04-03] MEDS: oxyCODONE SR TAB(*) 40 MG TAB.SR PO SCH ×2 (09:42→21:22)
[2019-04-03] MEDS: Acyclovir* 400 MG TAB PO SCH ×2 (09:43→21:22)
[2019-04-03] MEDS: Dexamethasone TAB* 4 MG PO SCH ×2 (09:43→21:23)
[2019-04-03] MEDS: Docusate CAP* 100 MG PO SCH (09:43)
[2019-04-03] MEDS: cefTRIAXone(*) 1 GM in NS 0.9% 50 ML* 50 ML IVPB SCH (09:50)
[2019-04-03] MEDS: NS 0.9% 1000 ML** 1,000 ML IV SCH (13:30)
[2019-04-03] MEDS: oxyCODONE TAB* 5 MG TAB PO PRN (13:59)
[2019-04-03] MEDS: Collagenase 250 UNITS/GM OINT* 1 APPLIC OINT TOPICAL SCH (14:12)
[2019-04-03 15:17] LABS: Albumin 1.8 g/dL (3.4-4.7); Albumin/Globulin Ratio 0.64; Gamma Globulin 0.7 g/dL (0.6-1.6); Total Protein(PEP) 4.7 g/dL (6.3 - 7.9)
[2019-04-03] MEDS: Enoxaparin(*) 40 MG/0.4 ML SYR SUBCUT SCH (16:02)
[2019-04-03] MEDS: Timolol 0.5% OPTH.SOL* BTL BOTH EYES SCH (22:33)
[2019-04-04] MEDS: NS 0.9% 1000 ML** 1,000 ML IV SCH ×2 (02:25→19:29)
[2019-04-04] MEDS: Acyclovir* 400 MG TAB PO SCH ×2 (09:25→19:50)
[2019-04-04] MEDS: Senna TAB 8.6 mg* TAB PO SCH (09:26)
[2019-04-04] MEDS: Docusate CAP* 100 MG PO SCH (09:26)
[2019-04-04] MEDS: oxyCODONE SR TAB(*) 40 MG TAB.SR PO SCH ×2 (09:26→19:51)
[2019-04-04] MEDS: glipiZIDE TAB.XL* 2.5 MG PO SCH (09:26)
[2019-04-04] MEDS: oxyCODONE SR TAB(*) 10 MG TAB.SR PO SCH ×2 (09:28→19:50)
[2019-04-04] MEDS: Dexamethasone TAB* 4 MG PO SCH ×2 (09:29→19:49)
[2019-04-04] MEDS: cefTRIAXone(*) 1 GM in NS 0.9% 50 ML* 50 ML IVPB SCH (09:29)
[2019-04-04] MEDS: Morphine 4 MG/ML VIAL (1 ml) 4 MG/ML VIAL IV PRN ×3 (10:59→19:47)
[2019-04-04] MEDS: Fluconazole 100 MG TAB* TAB PO SCH (10:59)
[2019-04-04] MEDS: Collagenase 250 UNITS/GM OINT* 1 APPLIC OINT TOPICAL SCH (11:43)
[2019-04-04] MEDS ORDERED: Polyethylene Glycol 3350* 17 GM PACKET PO PRN (12:15)
[2019-04-04] MEDS ORDERED: Bisacodyl SUPP* 10 MG SUPP PR PRN (12:15)
[2019-04-04] MEDS: oxyCODONE TAB* 5 MG TAB PO PRN (13:01)
[2019-04-04] MEDS: Enoxaparin(*) 40 MG/0.4 ML SYR SUBCUT SCH (13:03)
[2019-04-04] MEDS: Timolol 0.5% OPTH.SOL* BTL BOTH EYES SCH (19:52)
[2019-04-05 06:42] LABS: ABS Lymphocytes 0.4 10^3/ul (1.0-4.8); ABS Monocytes 0.4 10^3/ul (0-0.8); ABS Neutrophils 5.5 10^3/ul (1.5-7.7); Hematocrit 22 % (42-52); Hemoglobin 7.4 g/dL (14.0-18.0); Lymphocyte % 6.7 %; Mean Corpuscular HGB Conc 33 g/dL (31-36); Mean Corpuscular Hemoglobin 29 pg (27-31); Mean Corpuscular Volume 87 fL (80-94); Mean Platelet Volume 8.9 fL (7.4-10.4); Platelet Count 62 10^3/uL (150-450); Red Blood Count 2.53 10^6 /uL (4.18-5.48); Red Cell Distribution Width 19 % (10-15); White Blood Count 6.4 10^3/uL (3.5-10.8)
[2019-04-05 06:56] LABS: Calcium 7.9 mg/dL (8.6-10.3); EGFR African American 263.7 (>60); Potassium 4.5 mmol/L (3.5-5.0)
[2019-04-05] MEDS: oxyCODONE SR TAB(*) 10 MG TAB.SR PO SCH ×2 (08:58→19:53)
[2019-04-05] MEDS: oxyCODONE SR TAB(*) 40 MG TAB.SR PO SCH ×2 (08:59→19:52)
[2019-04-05] MEDS: Acetaminophen TAB* 325 MG PO PRN (09:00)
[2019-04-05] MEDS: Senna TAB 8.6 mg* TAB PO SCH (09:01)
[2019-04-05] MEDS: Docusate CAP* 100 MG PO SCH (09:01)
[2019-04-05] MEDS: Acyclovir* 400 MG TAB PO SCH ×2 (09:02→19:53)
[2019-04-05] MEDS: Dexamethasone TAB* 4 MG PO SCH ×2 (09:02→19:54)
[2019-04-05] MEDS: Fluconazole 100 MG TAB* TAB PO SCH (09:02)
[2019-04-05] MEDS: Sulfamethox/Trimethoprim DS 800/160* TAB PO SCH (09:02)
[2019-04-05] MEDS: NS 0.9% 1000 ML** 1,000 ML IV SCH (09:08)
[2019-04-05] MEDS: glipiZIDE TAB.XL* 2.5 MG PO SCH (09:22)
--- NOTE | 2019-04-05 10:18 | PN ---
Progress Note - Progress Note Date of Service: 04/05/19 SOAP: Subjective: []complaint of pain in feet. has tried neurontin and Lyrica in past but with nausea. he is mostly bed bound, worked with PT to stand but was very weak. Wants to improve strength, he feels he is eating well and he is having bowl movements. Tolerating Abs, other then pain in feet, no pain. Acetaminophen (Tylenol Tab*) 650 mg PO Q4H PRN PRN Reason: FEVER/PAIN Last Admin: 04/05/19 09:00 Dose: 650 mg Acyclovir (Zovirax Tab*) 400 mg PO BID [facility] Last Admin: 04/05/19 09:02 Dose: 400 mg Bisacodyl (Dulcolax Supp*) 10 mg [place] DAILY PRN PRN Reason: CONSTIPATION Last Admin: 04/04/19 15:18 Dose: 10 mg Collagenase (Santyl 250 Units/Gm Oint*) 1 applic TOPICAL DAILY [facility] Last Admin: 04/04/19 11:43 Dose: 1 applic Dexamethasone (Decadron Tab*) 4 mg PO BID [facility] Last Admin: 04/05/19 09:02 Dose: 4 mg Docusate Sodium (Colace Cap*) 100 mg PO DAILY [facility] Last Admin: 04/05/19 09:01 Dose: 100 mg Enoxaparin Sodium (Lovenox(*)) 40 mg SUBCUT Q24H [facility] Last Admin: 04/04/19 13:03 Dose: 40 mg Fluconazole (Diflucan 100 Mg Tab*) 100 mg PO DAILY [facility] Last Admin: 04/05/19 09:02 Dose: 100 mg Glipizide (Glucotrol Xl*) 2.5 mg PO DAILY [facility] Last Admin: 04/05/19 09:22 Dose: 2.5 mg Ceftriaxone Sodium 1 gm/ (Sodium Chloride) 50 mls @ 100 mls/hr IVPB Q24H [facility] Last Admin: 04/04/19 09:29 Dose: 100 mls/hr Sodium Chloride (Ns 0.9% 1000 Ml) 1,000 mls @ 75 mls/hr IV .PER RATE [facility] Last Admin: 04/05/19 09:08 Dose: 75 mls/hr Morphine Sulfate (Morphine 4 Mg/Ml Vial (1 Ml)) 4 mg IV Q4H PRN PRN Reason: PAIN Last Admin: 04/04/19 19:47 Dose: 4 mg Ondansetron HCl (Zofran Inj*) 4 mg IV Q4H PRN PRN Reason: NAUSEA/VOMITING Oxycodone HCl (Oxycontin(*)) 80 mg PO BID [facility] Last Admin: 04/05/19 08:59 Dose: 80 mg Oxycodone HCl (Roxycodone Tab*) 30 mg PO Q3H PRN PRN Reason: PAIN Last Admin: 04/04/19 13:01 Dose: 30 mg Oxycodone HCl (Oxycontin(*)) 10 mg PO BID [facility] Last Admin: 04/05/19 08:58 Dose: 10 mg Polyethylene Glycol/Electrolytes (Miralax*) 17 gm PO DAILY PRN PRN Reason: CONSTIPATION Last Admin: 04/04/19 15:18 Dose: 17 gm Senna (Senokot Tab*) 2 tab PO DAILY [facility] Last Admin: 04/05/19 09:01 Dose: 2 tab Timolol Maleate (Timoptic 0.5% Opth*) 1 drop BOTH EYES BEDTIME [facility] Last Admin: 04/04/19 19:52 Dose: 1 drop Trimethoprim/Sulfamethoxazole (Bactrim Ds 800/160 Tab*) 1 tab PO MoWeFr@0900 [facility] Last Admin: 04/05/19 09:02 Dose: 1 tab Objective: Vital Signs Temp Pulse Resp BP Pulse Ox 97.2 F 75 18 84/44 95 04/05/19 05:09 04/05/19 05:09 04/05/19 08:59 04/05/19 05:09 04/05/19 05:09 Exam: Gen: weak, no distress HEENT: OMM missing teeth, no thrush CV: RRR, no m/r/g Resp: CTA, no w/c/r Abd: soft, nonTTP Ext: no edema, muscle wasting NEURO - AAO x 3 Myeloma; lambda light chains increased to 11,7 CT w/ multiple new liver lesions, ddx: visceral plasmacytomes or second malignancy. no obs, possible nephritis; Assessment: [This is a 63 yo male with advanced multiple myeloma recently hospitalized while on vacation in [place] with ESBL Ecoli septicemia who returned to our hospital with profound anemia found to have recurrent EColi septicemia of a urinary source. He is improving on antibiotics but remains weak and mostly bed bound. He has rapidly progressive disease with apparent new liver lesions. Additional therapy contingent of improved functional status after therapy for UTI. ] Plan: [1. EColi septicemia - recurrent infection with sensitive E. Coli - Discuss Abx with ID - PICC line removed - Jefferson catheter exchanged 2. MM. Aggressive disease with visceral spread - current therapy has been held - consider Bx liver lesion, will d/w Dr. Vee 3. Anemia - s/p 2U PRBCs now with recurrent anemia - constipated so unlikely to be d/t GIB, but stool pending for occult blood - likely due to MM - Check Iron and 12 as is 72 hrs from transfusion. 4. Pain control - increase oxycontin to 90 mg bid and cont oxycodone IR 30 mg q4h prn - trial gabapentin 100 mg po bid 5. DNR Dispo: home once stronger, will need continued PT
[2019-04-05 10:26] LABS: % Iron Saturation 22 % (15-55); Iron 32 ug/dL (50-212); Total Iron Binding Capacity 143 mcg/dL (250-450); Transferrin 102 mg/dL (203-362)
[2019-04-05 10:51] LABS: Ferritin > 1500.0 ng/mL (24-336)
[2019-04-05] MEDS: Collagenase 250 UNITS/GM OINT* 1 APPLIC OINT TOPICAL SCH (11:29)
[2019-04-05] MEDS: cefTRIAXone(*) 1 GM in NS 0.9% 50 ML* 50 ML IVPB SCH (11:57)
[2019-04-05] MEDS: oxyCODONE TAB* 5 MG TAB PO PRN (12:01)
[2019-04-05] MEDS: Gabapentin CAP(*) 100 MG PO SCH ×2 (14:55→19:54)
[2019-04-05] MEDS: Enoxaparin(*) 40 MG/0.4 ML SYR SUBCUT SCH ×2 (15:49→16:37)
[2019-04-05] MEDS ORDERED: NS 0.9% 1000 ML** 1,000 ML IV SCH (16:45)
[2019-04-05] MEDS ORDERED: NS 0.9% 1000 ML** 1,000 ML IV ONE (16:45)
[2019-04-05] MEDS: Timolol 0.5% OPTH.SOL* BTL BOTH EYES SCH (19:54)
[2019-04-06] MEDS: NS 0.9% 1000 ML** 1,000 ML IV SCH ×2 (01:08→21:46)
[2019-04-06 07:06] LABS: Hematocrit 20 % (42-52); Hemoglobin 6.7 g/dL (14.0-18.0); Mean Corpuscular HGB Conc 33 g/dL (31-36); Mean Corpuscular Hemoglobin 29 pg (27-31); Mean Corpuscular Volume 87 fL (80-94); Mean Platelet Volume 8.5 fL (7.4-10.4); Platelet Count 59 10^3/uL (150-450); Red Blood Count 2.29 10^6 /uL (4.18-5.48); Red Cell Distribution Width 18 % (10-15); White Blood Count 6.3 10^3/uL (3.5-10.8)
[2019-04-06] MEDS: Docusate CAP* 100 MG PO SCH (07:20)
[2019-04-06] MEDS: Senna TAB 8.6 mg* TAB PO SCH (07:20)
[2019-04-06 07:23] LABS: Albumin 2.2 g/dL (3.2-5.2); Albumin/Globulin Ratio 0.9 (1-3); BUN/Creatinine Ratio 57.1 (8-20); Calcium 7.9 mg/dL (8.6-10.3); EGFR African American 307.7 (>60); EGFR Non-African American 254.3 (>60); Globulin 2.4 g/dL (2-4); Potassium 4.5 mmol/L (3.5-5.0); Total Bilirubin 0.4 mg/dL (0.2-1.0); Total Protein 4.6 g/dL (6.4-8.9)
[2019-04-06] MEDS: Fluconazole 100 MG TAB* TAB PO SCH (07:42)
[2019-04-06] MEDS: Acyclovir* 400 MG TAB PO SCH ×2 (07:43→20:31)
[2019-04-06] MEDS: oxyCODONE SR TAB(*) 40 MG TAB.SR PO SCH ×2 (07:43→20:30)
[2019-04-06] MEDS: Dexamethasone TAB* 4 MG PO SCH ×2 (07:43→20:31)
[2019-04-06] MEDS: glipiZIDE TAB.XL* 2.5 MG PO SCH (07:43)
[2019-04-06] MEDS: oxyCODONE SR TAB(*) 10 MG TAB.SR PO SCH ×2 (07:43→20:31)
[2019-04-06] MEDS: Gabapentin CAP(*) 100 MG PO SCH (07:44)
[2019-04-06] MEDS: Collagenase 250 UNITS/GM OINT* 1 APPLIC OINT TOPICAL SCH (07:47)
[2019-04-06] MEDS: Acetaminophen TAB* 325 MG PO PRN (07:49)
[2019-04-06] MEDS: cefTRIAXone(*) 1 GM in NS 0.9% 50 ML* 50 ML IVPB SCH (10:42)
[2019-04-06] MEDS: oxyCODONE TAB* 5 MG TAB PO PRN ×3 (10:54→20:28)
[2019-04-06] MEDS: Enoxaparin(*) 40 MG/0.4 ML SYR SUBCUT SCH (14:26)
--- NOTE | 2019-04-06 18:57 | CONSULT ---
Palliative / Hospice Consult Ordering Provider: Martínez Vee - Gricel Referal Reason: Goals of care/aftercare - Subjective Code Status: DNR Advance Directives Location: MOLST in chart MOLST Part A Completed: Yes - on chart MOLST Part E Completed:: Yes - on chart - History or Present Illness History or Present Illness: 63yo male presents to [facility] from [facility] facility with low hemoglobin. PMH is significant for multiple myeloma and DM type 2. Pt is a tobacco user, occ etoh, , is his HCP. Studies showed CXR-PICC line present, bladder U/S no hydronephrosis, abd/pel/chest CT-no abscess, atelectasis vs scarring lung base, metastatic disease to bones, liver, R adrenal , R kidney and R retroperitonium, H/H 6.7/20, plt 59, BUN/Cr 20/.35, egfr 254.3 , Ca 7.9, tprot 4.6, alb 2.2 and blood culture with E. Coli. All history is from pt, family and medical records. Pt was on family vacation in [place] when he was admitted to the ICU for septic shock at discharge he went to [facility] for rehab. He had labs drawn which showed low hemoglobin and pt was admitted to [facility] with anemia, E.Coli septicemia, multiple myeloma and new metastatic disease. He received transfusions and antibiotics. Lab Values: Abnormal Lab Results 04/06/19 04/06/19 04/06/19 06:37 06:37 06:37 WBC 6.3 RBC 2.29 L Hgb 6.7 L Hct 20 L MCV 87 MCH 29 MCHC 33 RDW 18 H Plt Count 59 L MPV 8.5 Sodium 138 Potassium 4.5 Chloride 105 Carbon Dioxide 26 Anion Gap 7 BUN 20 Creatinine 0.35 L Est GFR ( Amer) 307.7 Est GFR (Non-Af Amer) 254.3 BUN/Creatinine Ratio 57.1 H Glucose 77 Calcium 7.9 L Total Bilirubin 0.40 AST 8 L ALT 15 Alkaline Phosphatase 160 H Total Protein 4.6 L Albumin 2.2 L Globulin 2.4 Albumin/Globulin Ratio 0.9 L Blood Type A Positive Antibody Screen Negative Crossmatch See Detail Laboratory Last Values WBC 6.3 10^3/uL (3.5-10.8) 04/06/19 06:37 RBC 2.29 10^6 /uL (4.18-5.48) L 04/06/19 06:37 Hgb 6.7 g/dL (14.0-18.0) L 04/06/19 06:37 Hct 20 % (42-52) L 04/06/19 06:37 MCV 87 fL (80-94) 04/06/19 06:37 MCH 29 pg (27-31) 04/06/19 06:37 MCHC 33 g/dL (31-36) 04/06/19 06:37 RDW 18 % (10-15) H 04/06/19 06:37 Plt Count 59 10^3/uL (150-450) L 04/06/19 06:37 MPV 8.5 fL (7.4-10.4) 04/06/19 06:37 Neut % (Auto) 86.6 % 04/05/19 05:57 Lymph % (Auto) 6.7 % 04/05/19 05:57 [place] % (Auto) 6.6 % 04/05/19 05:57 Eos % (Auto) 0.0 % 04/05/19 05:57 Baso % (Auto) 0.1 % 04/05/19 05:57 Absolute Neuts (auto) 5.5 10^3/ul (1.5-7.7) 04/05/19 05:57 Absolute Lymphs (auto) 0.4 10^3/ul (1.0-4.8) L 04/05/19 05:57 Absolute Monos (auto) 0.4 10^3/ul (0-0.8) 04/05/19 05:57 Absolute Eos (auto) 0.0 10^3/ul (0-0.6) 04/05/19 05:57 Absolute Basos (auto) 0.0 10^3/ul (0-0.2) 04/05/19 05:57 Absolute Nucleated RBC 0.0 10^3/ul 04/05/19 05:57 Nucleated RBC % 0.0 04/05/19 05:57 Hypochromasia 2+ 04/02/19 06:34 Anisocytosis 1+ 04/02/19 06:34 INR (Anticoag Therapy) 1.45 (0.82-1.09) H 03/30/19 14:10 Sodium 138 mmol/L (135-145) 04/06/19 06:37 Potassium 4.5 mmol/L (3.5-5.0) 04/06/19 06:37 Chloride 105 mmol/L (101-111) 04/06/19 06:37 Carbon Dioxide 26 mmol/L (22-32) 04/06/19 06:37 Anion Gap 7 mmol/L (2-11) 04/06/19 06:37 BUN 20 mg/dL (6-24) 04/06/19 06:37 Creatinine 0.35 mg/dL (0.67-1.17) L 04/06/19 06:37 Est GFR ( Amer) 307.7 (>60) 04/06/19 06:37 Est GFR (Non-Af Amer) 254.3 (>60) 04/06/19 06:37 BUN/Creatinine Ratio 57.1 (8-20) H 04/06/19 06:37 Glucose 77 mg/dL (70-100) 04/06/19 06:37 Lactic Acid 1.4 mmol/L (0.5-2.0) 03/30/19 14:10 Calcium 7.9 mg/dL (8.6-10.3) L 04/06/19 06:37 Iron 32 ug/dL (50-212) L 04/05/19 05:54 TIBC 143 mcg/dL (250-450) L 04/05/19 05:54 % Saturation 22 % (15-55) 04/05/19 05:54 Unsat Iron Binding < 128 ug/dL 04/05/19 05:54 Transferrin 102 mg/dL (203-362) L 04/05/19 05:54 Ferritin > 1500.0 ng/mL (24-336) H 04/05/19 05:54 Total Bilirubin 0.40 mg/dL (0.2-1.0) 04/06/19 06:37 AST 8 U/L (13-39) L 04/06/19 06:37 ALT 15 U/L (7-52) 04/06/19 06:37 Alkaline Phosphatase 160 U/L (34-104) H 04/06/19 06:37 Total Protein 4.6 g/dL (6.4-8.9) L 04/06/19 06:37 Total Protein (PEP) 4.7 g/dL (6.3 - 7.9) L 03/30/19 14:10 Albumin 2.2 g/dL (3.2-5.2) L 04/06/19 06:37 Albumin (PEP) 1.8 g/dL (3.4-4.7) L 03/30/19 14:10 Globulin 2.4 g/dL (2-4) 04/06/19 06:37 Albumin/Globulin Ratio 0.9 (1-3) L 04/06/19 06:37 Albumin/Globulin (PEP) 0.64 03/30/19 14:10 Enhnj-9-Erluyjlsl 0.4 g/dL (0.1-0.3) H 03/30/19 14:10 Hpdct-7-Fuckpxnws 1.0 g/dL (0.6-1.0) 03/30/19 14:10 Havw-5-Zjkpwzom 0.8 g/dL (0.7-1.2) 03/30/19 14:10 Gamma Globulins 0.7 g/dL (0.6-1.6) 03/30/19 14:10 M-José Luis Not Reportable 03/30/19 14:10 M-José Luis 2 Not Reportable 03/30/19 14:10 PEP Impression See comment 03/30/19 14:10 Vitamin B12 312 pg/mL (180-914) 04/05/19 05:54 Urine Color Yellow 03/30/19 18:00 Urine Appearance Cloudy 03/30/19 18:00 Urine pH 5.0 (5-9) 03/30/19 18:00 Ur Specific [place] 1.015 (1.010-1.030) 03/30/19 18:00 Urine Protein Negative (Negative) 03/30/19 18:00 Urine Ketones Negative (Negative) 03/30/19 18:00 Urine Blood 2+ (Negative) A 03/30/19 18:00 Urine Nitrate Positive (Negative) A 03/30/19 18:00 Urine Bilirubin Negative (Negative) 03/30/19 18:00 Urine Urobilinogen Negative (Negative) 03/30/19 18:00 Ur Leukocyte Esterase 3+ (Negative) A 03/30/19 18:00 Urine WBC (Auto) 3+(>20/hpf) (Absent) A 03/30/19 18:00 Urine RBC (Auto) 3+(>10/hpf) (Absent) A 03/30/19 18:00 Urine Bacteria 3+ (Absent) A 03/30/19 18:00 Urine Glucose Negative (Negative) 03/30/19 18:00 IgG 418 mg/dL (767 - 1590) L 03/30/19 14:10 IgA 286 mg/dL (61 - 356) 03/30/19 14:10 IgM 19 mg/dL (37 - 286) L 03/30/19 14:10 Lerna Light Chain <0.6300 mg/dL 03/30/19 14:10 Lambda Light Chain 11.7 mg/dL H 03/30/19 14:10 Lerna/Lambda Ratio <0.0538 L 03/30/19 14:10 Blood Type A Positive 04/06/19 06:37 Antibody Screen Negative 04/06/19 06:37 Crossmatch See Detail 04/06/19 06:37 - Objective Active Medications: Acetaminophen (Tylenol Tab*) 650 mg PO Q4H PRN PRN Reason: FEVER/PAIN Last Admin: 04/06/19 07:49 Dose: 650 mg Acyclovir (Zovirax Tab*) 400 mg PO BID [facility] Last Admin: 04/06/19 07:43 Dose: 400 mg Bisacodyl (Dulcolax Supp*) 10 mg OR DAILY PRN PRN Reason: CONSTIPATION Last Admin: 04/04/19 15:18 Dose: 10 mg Collagenase (Santyl 250 Units/Gm Oint*) 1 applic TOPICAL DAILY [facility] Last Admin: 04/06/19 07:47 Dose: 1 applic Dexamethasone (Decadron Tab*) 4 mg PO BID [facility] Last Admin: 04/06/19 07:43 Dose: 4 mg Docusate Sodium (Colace Cap*) 100 mg PO DAILY [facility] Last Admin: 04/06/19 07:20 Dose: Not Given Enoxaparin Sodium (Lovenox(*)) 40 mg SUBCUT Q24H [facility] Last Admin: 04/06/19 14:26 Dose: 40 mg Fluconazole (Diflucan 100 Mg Tab*) 100 mg PO DAILY [facility] Last Admin: 04/06/19 07:42 Dose: 100 mg Glipizide (Glucotrol Xl*) 2.5 mg PO DAILY [facility] Last Admin: 04/06/19 07:43 Dose: 2.5 mg Ceftriaxone Sodium 1 gm/ (Sodium Chloride) 50 mls @ 100 mls/hr IVPB Q24H [facility] Last Admin: 04/06/19 10:42 Dose: 100 mls/hr Sodium Chloride (Ns 0.9% 1000 Ml) 1,000 mls @ 75 mls/hr IV .PER RATE [facility] Last Admin: 04/06/19 01:08 Dose: 75 mls/hr Ondansetron HCl (Zofran Inj*) 4 mg IV Q4H PRN PRN Reason: NAUSEA/VOMITING Oxycodone HCl (Oxycontin(*)) 80 mg PO BID [facility] Last Admin: 04/06/19 07:43 Dose: 80 mg Oxycodone HCl (Roxycodone Tab*) 30 mg PO Q3H PRN PRN Reason: PAIN Last Admin: 04/06/19 14:26 Dose: 30 mg Oxycodone HCl (Oxycontin(*)) 10 mg PO BID [facility] Last Admin: 04/06/19 07:43 Dose: 10 mg Polyethylene Glycol/Electrolytes (Miralax*) 17 gm PO DAILY PRN PRN Reason: CONSTIPATION Last Admin: 04/04/19 15:18 Dose: 17 gm Senna (Senokot Tab*) 2 tab PO DAILY [facility] Last Admin: 04/06/19 07:20 Dose: Not Given Timolol Maleate (Timoptic 0.5% Opth*) 1 drop BOTH EYES BEDTIME [facility] Last Admin: 04/05/19 19:54 Dose: 1 drop Trimethoprim/Sulfamethoxazole (Bactrim Ds 800/160 Tab*) 1 tab PO MoWeFr@0900 [facility] Last Admin: 04/05/19 09:02 Dose: 1 tab Vital Signs: Vital Signs: Temp Pulse Resp BP Pulse Ox 97.8 F 75 18 87/36 95 04/06/19 07:15 04/06/19 07:15 04/06/19 14:26 04/06/19 07:15 04/06/19 07:15 Patient Weight: Weight 64.229 kg Intake and Output: Intake & Output 04/04/19 04/05/19 04/06/19 04/07/19 06:59 06:59 06:59 06:59 Intake Total 1940 3912 5065 170 Output Total 1490 1550 1300 1600 Balance 450 5532 2045 -8860 Intake: IV Fluids 1500 2910 3865 ceftriaxone 50 50 ns 1450 2860 3865 IVPB 50 ceftriaxone 50 Oral 384 894 7963 170 Output: [place] 1490 1550 1300 1600 Other: Estimated Void Large Date of Last Bowel 04/06/19 Movement # Bowel Movements 0 2 1 Estimated Stool Amount Small Small ADLs: Meal Record Start: 03/30/19 15: 05 Freq: DAILY@0900,1400,1800 Status: Active Protocol: Created 03/30/19 15:05 System (Rec: 03/30/19 15:05 System MED-M19) Document 03/30/19 18:00 [id number] (Rec: 03/30/19 22:19 [id number] MED-C09) Document 03/31/19 09:00 [id number] (Rec: 03/31/19 10:03 [id number] MED-M22) Document 03/31/19 13:05 [id number] (Rec: 03/31/19 13:09 [id number] MED-M22) Document 03/31/19 18:00 [id number] (Rec: 03/31/19 18:33 [id number] MED-C05) Document 04/01/19 14:00 [id number] (Rec: 04/01/19 14:04 [id number] MED-C02) Document 04/01/19 18:00 [id number] (Rec: 04/01/19 18:17 [id number] MED-M01) Document 04/02/19 14:00 [id number] (Rec: 04/02/19 17:54 [id number] MED-C09) Document 04/02/19 18:00 MQH3973 (Rec: 04/02/19 21:52 [id number] MED-C11) Document 04/03/19 09:00 [id number] (Rec: 04/03/19 10:32 [id number] MED-C09) Document 04/03/19 14:00 [id number] (Rec: 04/03/19 16:07 [id number] MED-C09) Document 04/04/19 09:00 MZE1261 (Rec: 04/04/19 10:47 [id number] MED-C13) Document 04/04/19 14:00 SJW2543 (Rec: 04/04/19 17:41 [id number] MED-C13) Document 04/04/19 18:00 JRD1187 (Rec: 04/04/19 19:25 [id number] MED-C13) Document 04/05/19 09:00 [id number] (Rec: 04/05/19 13:43 [id number] MED-C09) Document 04/05/19 14:00 FGI0913 (Rec: 04/05/19 16:44 [id number] MED-C09) Document 04/05/19 18:00 [id number] (Rec: 04/05/19 19:15 [id number] MED-C26) Document 04/06/19 14:00 [id number] (Rec: 04/06/19 14:22 [id number] MED-C09) Document 04/06/19 18:00 [id number] (Rec: 04/06/19 18:19 [id number] MED-C13) Intake and Output Start: 03/30/19 11: 33 Freq: Status: Active Protocol: Created 03/30/19 11:33 System (Rec: 03/30/19 11:33 System EDRM-C12) Intake and Output Start: 03/30/19 15: 05 Freq: DAILY@0600,1400,2200 Status: Active Protocol: Created 03/30/19 15:05 System (Rec: 03/30/19 15:05 System MED-M19) Document 03/30/19 22:00 [id number] (Rec: 03/30/19 22:21 [id number] MED-C09) Document 03/31/19 05:13 [id number] (Rec: 03/31/19 05:13 [id number] MED-C09) Document 03/31/19 08:49 [id number] (Rec: 03/31/19 08:49 [id number] MED-M22) Document 03/31/19 10:32 [id number] (Rec: 03/31/19 10:32 [id number] MED-M22) Document 03/31/19 13:05 TSA4431 (Rec: 03/31/19 13:09 [id number] MED-M22) Document 03/31/19 21:44 HDI0485 (Rec: 03/31/19 21:45 TBX1950 MED-C09) Document 04/01/19 05:22 FRY2636 (Rec: 04/01/19 05:23 [id number] MED-C09) Document 04/01/19 13:51 QWI2156 (Rec: 04/01/19 13:53 UYE8312 MED-C15) Document 04/01/19 22:00 [id number] (Rec: 04/01/19 23:24 [id number] MED-C05) Document 04/02/19 03:26 [id number] (Rec: 04/02/19 03:28 [id number] MED-C05) Document 04/02/19 14:00 MUZ5007 (Rec: 04/02/19 14:09 [id number] MED-M01) Document 04/02/19 21:52 [id number] (Rec: 04/02/19 21:54 [id number] MED-C11) Document 04/03/19 05:03 TKX3793 (Rec: 04/03/19 05:06 [id number] MED-C11) Document 04/03/19 14:00 BCR3330 (Rec: 04/03/19 14:33 BRI8584 MED-C09) Document 04/03/19 21:51 ZRH9284 (Rec: 04/03/19 21:51 REC9071 MED-C07) Document 04/04/19 05:49 YPO0470 (Rec: 04/04/19 05:49 [id number] MED-C13) Document 04/04/19 14:00 SOT5882 (Rec: 04/04/19 17:39 [id number] MED-C13) Document 04/04/19 22:00 UEX1222 (Rec: 04/04/19 23:17 [id number] MED-C13) Document 04/05/19 05:09 ZES6693 (Rec: 04/05/19 05:09 [id number] MED-C04) Document 04/05/19 14:00 [id number] (Rec: 04/05/19 16:43 [id number] MED-C09) Document 04/05/19 21:59 FZF1013 (Rec: 04/05/19 22:00 [id number] MED-C13) Document 04/06/19 05:07 [id number] (Rec: 04/06/19 05:09 [id number] MED-C13) Document 04/06/19 14:00 [id number] (Rec: 04/06/19 14:23 [id number] MED-C09) Ears/Nose/Mouth/Throat: Mucous Membranes Moist Neck: NL Appearance and Movements; NL JVP, Trachea Midline Extremities: No Edema Neurological: - - Alert and Oriented to person and place - Assessment Assessment: 63yo male with multiple myeloma and new metastatic disease hospice eligible - Plan Consult Plan (MU): Hospice Plan: Long discussion with and pt, son joined us later. explained that he is too weak to undergo biopsy and chemo for the new metastatic lesions and at this time they are looking for comfort care. She is unable to care for him safely at home and feels their home is not set up for it. We discussed hospice, brochure and information given. We talked about the residence and getting hospice at [facility]. They are concerned about costs, pt is still on regular insurance not medicare eligible yet. A referral will be sent in am for the hospice residence. Explained that pt could stop hospice if it wasn't working for them but I did stress that hospice would be the best able to provide comfort care. They are worried about pain management. Pt is eligible for hospice because no further treatment for multiple myeloma and new metastatic lesions, oncology felt he had a 1-2 months prognosis. KPS 30% PPS 40 % - Time On Unit Date of Evaluation: 04/06/19 Hospice Consult Time in: 15:30 Hospice Consult Time Out: 17:00 Hospice Consult Time Total: 90 > 50% of Time Spend In Counseling or Coordinating Care: Yes
[2019-04-06] MEDS: Timolol 0.5% OPTH.SOL* BTL BOTH EYES SCH (20:32)
[2019-04-07] MEDS: cefTRIAXone(*) 1 GM in NS 0.9% 50 ML* 50 ML IVPB SCH (09:37)
[2019-04-07] MEDS: Docusate CAP* 100 MG PO SCH (09:39)
[2019-04-07] MEDS: Senna TAB 8.6 mg* TAB PO SCH (09:39)
[2019-04-07] MEDS: Fluconazole 100 MG TAB* TAB PO SCH (09:39)
[2019-04-07] MEDS: Dexamethasone TAB* 4 MG PO SCH ×2 (09:40→20:22)
[2019-04-07] MEDS: oxyCODONE SR TAB(*) 40 MG TAB.SR PO SCH ×2 (09:40→20:24)
[2019-04-07] MEDS: glipiZIDE TAB.XL* 2.5 MG PO SCH (09:40)
[2019-04-07] MEDS: Sulfamethox/Trimethoprim DS 800/160* TAB PO SCH (09:40)
[2019-04-07] MEDS: oxyCODONE SR TAB(*) 10 MG TAB.SR PO SCH ×2 (09:40→20:23)
[2019-04-07] MEDS: Acyclovir* 400 MG TAB PO SCH ×2 (09:42→20:22)
[2019-04-07] MEDS: Collagenase 250 UNITS/GM OINT* 1 APPLIC OINT TOPICAL SCH (09:48)
--- NOTE | 2019-04-07 10:29 | PN ---
Progress Note - Progress Note Date of Service: 04/07/19 SOAP: Subjective: []Seen and examine this AM. Feels ok, resting comfortably in bed. Worried he won't get pain meds if he needs them. at bedside coordinating care. Pt. and in agreement for plan to skilled facility with hospice, though is curious if there is a bed at the residence. Medications: Acetaminophen (Tylenol Tab*) 650 mg PO Q4H PRN PRN Reason: FEVER/PAIN Last Admin: 04/06/19 07:49 Dose: 650 mg Acyclovir (Zovirax Tab*) 400 mg PO BID [facility] Last Admin: 04/07/19 09:42 Dose: 400 mg Bisacodyl (Dulcolax Supp*) 10 mg [place] DAILY PRN PRN Reason: CONSTIPATION Last Admin: 04/04/19 15:18 Dose: 10 mg Collagenase (Santyl 250 Units/Gm Oint*) 1 applic TOPICAL DAILY [facility] Last Admin: 04/07/19 09:48 Dose: 1 applic Dexamethasone (Decadron Tab*) 4 mg PO BID [facility] Last Admin: 04/07/19 09:40 Dose: 4 mg Docusate Sodium (Colace Cap*) 100 mg PO DAILY [facility] Last Admin: 04/07/19 09:39 Dose: 100 mg Enoxaparin Sodium (Lovenox(*)) 40 mg SUBCUT Q24H [facility] Last Admin: 04/06/19 14:26 Dose: 40 mg Fluconazole (Diflucan 100 Mg Tab*) 100 mg PO DAILY [facility] Last Admin: 04/07/19 09:39 Dose: 100 mg Glipizide (Glucotrol Xl*) 2.5 mg PO DAILY [facility] Last Admin: 04/07/19 09:40 Dose: 2.5 mg Ceftriaxone Sodium 1 gm/ (Sodium Chloride) 50 mls @ 100 mls/hr IVPB Q24H [facility] Last Admin: 04/07/19 09:37 Dose: 100 mls/hr Sodium Chloride (Ns 0.9% 1000 Ml) 1,000 mls @ 75 mls/hr IV .PER RATE [facility] Last Admin: 04/06/19 21:46 Dose: 75 mls/hr Ondansetron HCl (Zofran Inj*) 4 mg IV Q4H PRN PRN Reason: NAUSEA/VOMITING Oxycodone HCl (Oxycontin(*)) 80 mg PO BID [facility] Last Admin: 04/07/19 09:40 Dose: 80 mg Oxycodone HCl (Roxycodone Tab*) 30 mg PO Q3H PRN PRN Reason: PAIN Last Admin: 04/06/19 20:28 Dose: 30 mg Oxycodone HCl (Oxycontin(*)) 10 mg PO BID [facility] Last Admin: 04/07/19 09:40 Dose: 10 mg Polyethylene Glycol/Electrolytes (Miralax*) 17 gm PO DAILY PRN PRN Reason: CONSTIPATION Last Admin: 04/04/19 15:18 Dose: 17 gm Senna (Senokot Tab*) 2 tab PO DAILY [facility] Last Admin: 04/07/19 09:39 Dose: 2 tab Timolol Maleate (Timoptic 0.5% Opth*) 1 drop BOTH EYES BEDTIME [facility] Last Admin: 04/06/19 20:32 Dose: 1 drop Trimethoprim/Sulfamethoxazole (Bactrim Ds 800/160 Tab*) 1 tab PO MoWeFr@0900 [facility] Last Admin: 04/07/19 09:40 Dose: 1 tab Objective: [] Vital Signs Temp Pulse Resp BP Pulse Ox 97.4 F 75 18 105/50 97 04/07/19 07:15 04/07/19 07:15 04/07/19 09:40 04/07/19 07:15 04/07/19 07:15 A&O, involved in conversation Notably sleeping HRR LS dim. Skin not examined Laboratory Results - last 24 hr 04/06/19 06:37 Blood Type A Positive Antibody Screen Negative Crossmatch See Detail Microbiology 04/02/19 06:34 Aerobic Blood Culture - Final Blood Venous No Growth Day 5 Anaerobic Blood Culture - Final No Growth Day 5 04/02/19 06:34 Aerobic Blood Culture - Final Blood Venous No Growth Day 5 Anaerobic Blood Culture - Final No Growth Day 5 04/04/19 17:25 Stool Occult Blood (NAA) - Final Stool 04/02/19 09:40 Urine Culture - Final Urine Yin Tropicalis 03/30/19 12:15 Urine Culture - Final Urine Escherichia Coli 03/30/19 14:10 Aerobic Blood Culture - Final Blood Line Escherichia Coli Anaerobic Blood Culture - Final Escherichia Coli Assessment: []63 yo male with progressive multiple myeloma complicated by severe pain and declining performance status as well as new decubitus ulcer to the sacrum and recurrent UTIs. He will complete a full course of abx. tomorrow and plan is to transition to comfort measures only. Plan: []- cont. current abx. through tomorrow then d/c - cont. pain medications as needed - barrier cream to ulcer with santyl to necrotic areas - d/c planning for placement with hospice DNR
--- NOTE | 2019-04-07 11:14 | PN ---
Progress Note - Progress Note Date of Service: 04/07/19 SOAP: Subjective: CC: Bacteremia HPI: Mr. Ni is a 63 yo male with PMH significant for DM2 and multiple myeloma; who presented to the emergency room for anemia and was found to be febrile. Denies fever, chills, shortness of breath, cough, ABD pain, nausea, vomiting, or diarrhea. Objective: Vital Signs - 8 hr 04/07/19 04/07/19 04/07/19 03:32 07:15 08:00 Temperature 97.6 F 97.4 F Pulse Rate 74 75 Respiratory 18 18 18 Rate Blood Pressure 94/44 105/50 (mmHg) O2 Sat by Pulse 96 97 Oximetry Physical Exam: General: NAD, sitting up in bed Neurological: Alert and Oriented Cardiovascular: Heart rate regular Respiratory: Lung sounds clear, bilateral Abdominal: Bowel sounds present; ABD soft, non tender and non distended Skin: No rash seen on exposed skin (He is noted to have a pressure injury to the sacrum that was not visualized today) Laboratory Last Values WBC 6.3 10^3/uL (3.5-10.8) 04/06/19 06:37 RBC 2.29 10^6 /uL (4.18-5.48) L 04/06/19 06:37 Hgb 6.7 g/dL (14.0-18.0) L 04/06/19 06:37 Hct 20 % (42-52) L 04/06/19 06:37 MCV 87 fL (80-94) 04/06/19 06:37 MCH 29 pg (27-31) 04/06/19 06:37 MCHC 33 g/dL (31-36) 04/06/19 06:37 RDW 18 % (10-15) H 04/06/19 06:37 Plt Count 59 10^3/uL (150-450) L 04/06/19 06:37 MPV 8.5 fL (7.4-10.4) 04/06/19 06:37 Neut % (Auto) 86.6 % 04/05/19 05:57 Lymph % (Auto) 6.7 % 04/05/19 05:57 [place] % (Auto) 6.6 % 04/05/19 05:57 Eos % (Auto) 0.0 % 04/05/19 05:57 Baso % (Auto) 0.1 % 04/05/19 05:57 Absolute Neuts (auto) 5.5 10^3/ul (1.5-7.7) 04/05/19 05:57 Absolute Lymphs (auto) 0.4 10^3/ul (1.0-4.8) L 04/05/19 05:57 Absolute Monos (auto) 0.4 10^3/ul (0-0.8) 04/05/19 05:57 Absolute Eos (auto) 0.0 10^3/ul (0-0.6) 04/05/19 05:57 Absolute Basos (auto) 0.0 10^3/ul (0-0.2) 04/05/19 05:57 Absolute Nucleated RBC 0.0 10^3/ul 04/05/19 05:57 Nucleated RBC % 0.0 04/05/19 05:57 Hypochromasia 2+ 04/02/19 06:34 Anisocytosis 1+ 04/02/19 06:34 INR (Anticoag Therapy) 1.45 (0.82-1.09) H 03/30/19 14:10 Sodium 138 mmol/L (135-145) 04/06/19 06:37 Potassium 4.5 mmol/L (3.5-5.0) 04/06/19 06:37 Chloride 105 mmol/L (101-111) 04/06/19 06:37 Carbon Dioxide 26 mmol/L (22-32) 04/06/19 06:37 Anion Gap 7 mmol/L (2-11) 04/06/19 06:37 BUN 20 mg/dL (6-24) 04/06/19 06:37 Creatinine 0.35 mg/dL (0.67-1.17) L 04/06/19 06:37 Est GFR ( Amer) 307.7 (>60) 04/06/19 06:37 Est GFR (Non-Af Amer) 254.3 (>60) 04/06/19 06:37 BUN/Creatinine Ratio 57.1 (8-20) H 04/06/19 06:37 Glucose 77 mg/dL (70-100) 04/06/19 06:37 Lactic Acid 1.4 mmol/L (0.5-2.0) 03/30/19 14:10 Calcium 7.9 mg/dL (8.6-10.3) L 04/06/19 06:37 Iron 32 ug/dL (50-212) L 04/05/19 05:54 TIBC 143 mcg/dL (250-450) L 04/05/19 05:54 % Saturation 22 % (15-55) 04/05/19 05:54 Unsat Iron Binding < 128 ug/dL 04/05/19 05:54 Transferrin 102 mg/dL (203-362) L 04/05/19 05:54 Ferritin > 1500.0 ng/mL (24-336) H 04/05/19 05:54 Total Bilirubin 0.40 mg/dL (0.2-1.0) 04/06/19 06:37 AST 8 U/L (13-39) L 04/06/19 06:37 ALT 15 U/L (7-52) 04/06/19 06:37 Alkaline Phosphatase 160 U/L (34-104) H 04/06/19 06:37 Total Protein 4.6 g/dL (6.4-8.9) L 04/06/19 06:37 Total Protein (PEP) 4.7 g/dL (6.3 - 7.9) L 03/30/19 14:10 Albumin 2.2 g/dL (3.2-5.2) L 04/06/19 06:37 Albumin (PEP) 1.8 g/dL (3.4-4.7) L 03/30/19 14:10 Globulin 2.4 g/dL (2-4) 04/06/19 06:37 Albumin/Globulin Ratio 0.9 (1-3) L 04/06/19 06:37 Albumin/Globulin (PEP) 0.64 03/30/19 14:10 Hyyla-9-Popvgdovt 0.4 g/dL (0.1-0.3) H 03/30/19 14:10 Ixvhe-9-Pacnnjqbq 1.0 g/dL (0.6-1.0) 03/30/19 14:10 Arsu-0-Igdpeqeg 0.8 g/dL (0.7-1.2) 03/30/19 14:10 Gamma Globulins 0.7 g/dL (0.6-1.6) 03/30/19 14:10 M-José Luis Not Reportable 03/30/19 14:10 M-José Luis 2 Not Reportable 03/30/19 14:10 PEP Impression See comment 03/30/19 14:10 Vitamin B12 312 pg/mL (180-914) 04/05/19 05:54 Urine Color Yellow 03/30/19 18:00 Urine Appearance Cloudy 03/30/19 18:00 Urine pH 5.0 (5-9) 03/30/19 18:00 Ur Specific [place] 1.015 (1.010-1.030) 03/30/19 18:00 Urine Protein Negative (Negative) 03/30/19 18:00 Urine Ketones Negative (Negative) 03/30/19 18:00 Urine Blood 2+ (Negative) A 03/30/19 18:00 Urine Nitrate Positive (Negative) A 03/30/19 18:00 Urine Bilirubin Negative (Negative) 03/30/19 18:00 Urine Urobilinogen Negative (Negative) 03/30/19 18:00 Ur Leukocyte Esterase 3+ (Negative) A 03/30/19 18:00 Urine WBC (Auto) 3+(>20/hpf) (Absent) A 03/30/19 18:00 Urine RBC (Auto) 3+(>10/hpf) (Absent) A 03/30/19 18:00 Urine Bacteria 3+ (Absent) A 03/30/19 18:00 Urine Glucose Negative (Negative) 03/30/19 18:00 IgG 418 mg/dL (767 - 1590) L 03/30/19 14:10 IgA 286 mg/dL (61 - 356) 03/30/19 14:10 IgM 19 mg/dL (37 - 286) L 03/30/19 14:10 [place] <0.6300 mg/dL 03/30/19 14:10 Lambda [place] Chain 11.7 mg/dL H 03/30/19 14:10 [place]/Lambda Ratio <0.0538 L 03/30/19 14:10 Blood Type A Positive 04/06/19 06:37 Antibody Screen Negative 04/06/19 06:37 Crossmatch See Detail 04/06/19 06:37 Microbiology 04/02/19 06:34 Aerobic Blood Culture - Final Blood Venous No Growth Day 5 Anaerobic Blood Culture - Final No Growth Day 5 04/02/19 06:34 Aerobic Blood Culture - Final Blood Venous No Growth Day 5 Anaerobic Blood Culture - Final No Growth Day 5 04/04/19 17:25 Stool Occult Blood (NAA) - Final Stool 04/02/19 09:40 Urine Culture - Final Urine Yin Tropicalis 03/30/19 12:15 Urine Culture - Final Urine Escherichia Coli 03/30/19 14:10 Aerobic Blood Culture - Final Blood Line Escherichia Coli Anaerobic Blood Culture - Final Escherichia Coli Assessment: Assessment: 1. E coli bacteremia. Recently hospitalized in [place] for ESBL E coli bacteremia and UTI, was discharged and completed a course of IV ABX at [facility]. E coli in urine culture and 2/2 blood cultures in the setting of a PICC line and urinary catheter. Suspect that the post is seeded. Urinary catheter was exchanged at time of admission. Renal/bladder US shows "exophytic solid lesion anterior cortex kidney, and incidentally noted heterogenous echotexture of the liver, suggestion of masses". ABD/Pelvis CT - "no intra-abdominal pr pelvic abscess, intervally advanced findings of metastatic disease involving the bones". No leukocytosis and afebrile. 2. DM2. 3. Unstageable sacral pressure injury. 4. Multiple myeloma. Plan: Continue Ceftriaxone while in the hospital, based on family preferences and plan of care (possible transition to Hospice) could complete ABX at time of discharge. If they would like to complete a full course of ABX can consider transition to oral ABX at discharge to complete a 14 day course.
[2019-04-07] MEDS: oxyCODONE TAB* 5 MG TAB PO PRN ×2 (11:15→20:25)
[2019-04-07] MEDS: NS 0.9% 1000 ML** 1,000 ML IV SCH (11:17)
[2019-04-07] MEDS: Enoxaparin(*) 40 MG/0.4 ML SYR SUBCUT SCH (13:34)
[2019-04-07] MEDS: Timolol 0.5% OPTH.SOL* BTL BOTH EYES SCH (20:26)
[2019-04-08] MEDS: NS 0.9% 1000 ML** 1,000 ML IV SCH ×2 (00:05→14:00)
[2019-04-08] MEDS: Fluconazole 100 MG TAB* TAB PO SCH (08:39)
[2019-04-08] MEDS: glipiZIDE TAB.XL* 2.5 MG PO SCH (08:40)
[2019-04-08] MEDS: Docusate CAP* 100 MG PO SCH (08:40)
[2019-04-08] MEDS: Acyclovir* 400 MG TAB PO SCH (08:40)
[2019-04-08] MEDS: oxyCODONE SR TAB(*) 10 MG TAB.SR PO SCH ×2 (08:40→20:16)
[2019-04-08] MEDS: oxyCODONE SR TAB(*) 40 MG TAB.SR PO SCH ×2 (08:41→20:15)
[2019-04-08] MEDS: Senna TAB 8.6 mg* TAB PO SCH (08:41)
[2019-04-08] MEDS: Dexamethasone TAB* 4 MG PO SCH ×2 (08:41→20:16)
[2019-04-08] MEDS: Collagenase 250 UNITS/GM OINT* 1 APPLIC OINT TOPICAL SCH (08:50)
--- NOTE | 2019-04-08 09:13 | PN ---
Progress Note - Progress Note Date of Service: 04/08/19 SOAP: Subjective: feels about the same today. nervous about what discharge looks like and who is paying for it. feet and sacrum painful Objective: Vital Signs Temp Pulse Resp BP Pulse Ox 97.8 F 76 16 92/40 96 04/08/19 07:15 04/08/19 07:15 04/08/19 08:41 04/08/19 07:15 04/08/19 07:15 sitting up in nad cachectic op dry cta bl s1 s 2 nl soft nt +bs deferred extremity exam Acetaminophen (Tylenol Tab*) 650 mg PO Q4H PRN PRN Reason: FEVER/PAIN Last Admin: 04/06/19 07:49 Dose: 650 mg Acyclovir (Zovirax Tab*) 400 mg PO BID [facility] Last Admin: 04/08/19 08:40 Dose: 400 mg Bisacodyl (Dulcolax Supp*) 10 mg MI DAILY PRN PRN Reason: CONSTIPATION Last Admin: 04/04/19 15:18 Dose: 10 mg Collagenase (Santyl 250 Units/Gm Oint*) 1 applic TOPICAL DAILY [facility] Last Admin: 04/08/19 08:50 Dose: 1 applic Dexamethasone (Decadron Tab*) 4 mg PO BID [facility] Last Admin: 04/08/19 08:41 Dose: 4 mg Docusate Sodium (Colace Cap*) 100 mg PO DAILY [facility] Last Admin: 04/08/19 08:40 Dose: 100 mg Enoxaparin Sodium (Lovenox(*)) 40 mg SUBCUT Q24H [facility] Last Admin: 04/07/19 13:34 Dose: 40 mg Fluconazole (Diflucan 100 Mg Tab*) 100 mg PO DAILY [facility] Last Admin: 04/08/19 08:39 Dose: 100 mg Glipizide (Glucotrol Xl*) 2.5 mg PO DAILY [facility] Last Admin: 04/08/19 08:40 Dose: 2.5 mg Ceftriaxone Sodium 1 gm/ (Sodium Chloride) 50 mls @ 100 mls/hr IVPB Q24H [facility] Last Admin: 04/07/19 09:37 Dose: 100 mls/hr Sodium Chloride (Ns 0.9% 1000 Ml) 1,000 mls @ 75 mls/hr IV .PER RATE [facility] Last Admin: 04/08/19 00:05 Dose: 75 mls/hr Ondansetron HCl (Zofran Inj*) 4 mg IV Q4H PRN PRN Reason: NAUSEA/VOMITING Oxycodone HCl (Oxycontin(*)) 80 mg PO BID [facility] Last Admin: 04/08/19 08:41 Dose: 80 mg Oxycodone HCl (Roxycodone Tab*) 30 mg PO Q3H PRN PRN Reason: PAIN Last Admin: 04/07/19 20:25 Dose: 30 mg Oxycodone HCl (Oxycontin(*)) 10 mg PO BID [facility] Last Admin: 04/08/19 08:40 Dose: 10 mg Polyethylene Glycol/Electrolytes (Miralax*) 17 gm PO DAILY PRN PRN Reason: CONSTIPATION Last Admin: 04/04/19 15:18 Dose: 17 gm Senna (Senokot Tab*) 2 tab PO DAILY [facility] Last Admin: 04/08/19 08:41 Dose: 2 tab Timolol Maleate (Timoptic 0.5% Opth*) 1 drop BOTH EYES BEDTIME [facility] Last Admin: 04/07/19 20:26 Dose: 1 drop Trimethoprim/Sulfamethoxazole (Bactrim Ds 800/160 Tab*) 1 tab PO MoWeFr@0900 [facility] Last Admin: 04/07/19 09:40 Dose: 1 tab Assessment: 63 yo male with progressive multiple myeloma complicated by severe pain and declining performance status as well as new decubitus ulcer to the sacrum and recurrent UTIs. He will complete a full course of abx. today and plan is to transition to hospice on discharge. Plan: - cont. current abx. through today - cont. pain medications as needed - barrier cream to ulcer with santyl to necrotic areas -stop prophylactic abx - d/c planning for placement with hospice DNR
[2019-04-08] MEDS: cefTRIAXone(*) 1 GM in NS 0.9% 50 ML* 50 ML IVPB SCH (10:08)
[2019-04-08] MEDS: oxyCODONE TAB* 5 MG TAB PO PRN ×2 (11:48→17:43)
[2019-04-08] MEDS: Timolol 0.5% OPTH.SOL* BTL BOTH EYES SCH (20:16)
[2019-04-09] MEDS: oxyCODONE TAB* 5 MG TAB PO PRN ×3 (04:30→13:04)
[2019-04-09] MEDS: Fluconazole 100 MG TAB* TAB PO SCH (08:56)
[2019-04-09] MEDS: oxyCODONE SR TAB(*) 40 MG TAB.SR PO SCH (08:56)
[2019-04-09] MEDS: Dexamethasone TAB* 4 MG PO SCH (08:56)
[2019-04-09] MEDS: glipiZIDE TAB.XL* 2.5 MG PO SCH (08:56)
[2019-04-09] MEDS: oxyCODONE SR TAB(*) 10 MG TAB.SR PO SCH (08:56)
[2019-04-09] MEDS: Senna TAB 8.6 mg* TAB PO SCH (08:57)
[2019-04-09] MEDS: Docusate CAP* 100 MG PO SCH (08:58)
[2019-04-09] MEDS: Collagenase 250 UNITS/GM OINT* 1 APPLIC OINT TOPICAL SCH (08:59)
[2019-04-09] MEDS: cefTRIAXone(*) 1 GM in NS 0.9% 50 ML* 50 ML IVPB SCH (10:17)
--- NOTE | 2019-04-09 11:16 | DS ---
DISCHARGE SUMMARY: DATE OF ADMISSION: 03/30/19 DATE OF DISCHARGE: 04/09/19 DISCHARGE DIAGNOSES: 1. Escherichia coli bacteremia and urinary sepsis. 2. Severe anemia. 3. Multiple myeloma, not in remission. 4. Ttc-dwovizr-rvqvvibkx diabetes. 5. Recent spinal cord involvement for myeloma, requiring steroids. HISTORY: Mr. Ni is a 63-year-old male with a history of multiple myeloma for multiple years. He recently has had myeloma, which has been under worsening control despite ongoing therapy. Recent adm ission in [place] while on vacation for septic shock requiring pressors with ESBL E. coli from a uri nary tract source. 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 He has completed a course of antibiotics with imipenem on 03/22/19 via PICC li ne at [place]. Subsequent to that, he then developed a severe anemia, worsening performance status, and was found to have a hemoglobin of 5.8. He was referred to the emergency room for urgent blood t ransfusion. HOSPITAL COURSE: He received an initial transfusion with packed red blood cells. A total of 5 units while in the hospital. With this, hemoglobin did respond on each occasion, but only transiently and currently, on 04/06/19, following 4 of those 5 units, hemoglobin of 6.7. Blood cultures and urine cu lture initially revealed E. coli, but no longer ESBL with a broader sensitivity panel. On admission, he was started on meropenem believing that this would likely be ESBL, but subsequently was changed t o ceftriaxone, course of which was completed yesterday. Repeat blood cultures were without growth. Repeat urinary culture on 04/02/19 with Yin tropicalis and is currently receiving a course of Dif lucan for this. During the hospitalizations, laboratory studies returned for revisiting course of hi s myeloma. This revealed that his free light chains were markedly worse with a lambda light chain of 11.7, having previously been 3 in December and 6.7 in February. Clearly, he is no longer responding to his multiple myeloma therapy and in the setting of poor performance status with recurrent infections and immobility, the decision was made that he is no longer a candidate for treatment of his myeloma. He also did have a decubitus ulcer, which occurred either during the hospitalization in [place] or dur ing his stay at [place]. He has been receiving Santyl Collagenase to [facility] His mobility is extremely limited. PHYSICAL EXAMINATION: At the time of discharge, afebrile. Vital signs are stable. Lungs: Clear. H eart: Regular rate and rhythm. Abdomen: Soft, nontender. Extremities: Minimal edema. He look quite cachectic and is extremely weak in all extremities and his ability to try to stand or t o do any activities for himself. MEDICATIONS AT THE TIME OF DISCHARGE: Include: 1. OxyContin 90 mg b.i.d. 2. Oxycodone 30 mg q.3 hours p.r.n., receiving typically about 2 to 3 doses of short-acting narcotic s per day. 3. Docusate 100 mg daily. 4. MiraLAX 17 g daily. 5. Fluconazole 100 mg daily, to receive another 5 days to complete a course. 6. Bisacodyl suppositories 10 mg TN p.r.n. 7. Decadron 4 mg b.i.d. 8. Senna 2 tabs daily. 9. Glipizide 2.5 mg daily. 10. Timolol eye drops 1 drop to both eyes at bedtime. 11. Zofran 4 mg q.4 hours p.r.n. for nausea, having not received in many days. 12. Tylenol 650 q.4 p.r.n. ACTIVITY LEVEL: He is out of bed with assistance and is extremely weak. DIET: Regular and he is also receiving extra Ensure between meals. DISPOSITION: The patient is being discharged to [facility] with plan for hospice sign on. ADVANCE DIRECTIVES: He does have a DNR order in place, also DNI. Healthcare proxy and primary careg iver to this point has been his . [id number]/[facility] #: [id number]
[2019-04-09 11:37] VITALS: BP 85/47
[2019-04-09] MEDS ORDERED: oxyCODONE TAB* 5 MG TAB PO ONE (13:00)
--- NOTE | 2019-04-22 13:12 | PN ---
Progress Note - Progress Note Date of Service: 03/30/19 SOAP: Addendum to H&P: ROS: Full ROS completed, all negative except as noted in HPI
--- NOTE | 2019-06-02 22:15 | DS ---
ADDENDUM: DISCHARGE SUMMARY: DATE OF ADMISSION: 03/30/19 DATE OF DISCHARGE: 04/09/19 The patient was discharged to a care home to start hospice services, in poor condition. Life expectancy is short. [id number]/[facility] #: [id number] MTDD
== END 2019-04-09 13:45 | DRG 720 ==
LOC: ED 11:18 → MED 14:36
PROVIDERS: ADMIT Internal Medicine Hematology & Oncology; ATTEND Internal Medicine Hematology & Oncology
PROC: 30233N1 Transfusion of Nonautologous Red Blood Cells into Peripheral Vein, Percutaneous Approach (ICD-10-PCS; principal; 2019-03-30)
PROC: 0T2BX0Z Change Drainage Device in Bladder, External Approach (ICD-10-PCS; 2019-03-30)
DX: A41.51 Sepsis due to Escherichia coli [E. coli] (principal); C90.00 Multiple myeloma not having achieved remission; R64 Cachexia; C78.7 Secondary malignant neoplasm of liver and intrahepatic bile duct; C79.51 Secondary malignant neoplasm of bone; C79.71 Secondary malignant neoplasm of right adrenal gland; C79.01 Secondary malignant neoplasm of right kidney and renal pelvis; C78.6 Secondary malignant neoplasm of retroperitoneum and peritoneum; D64.9 Anemia, unspecified; L89.150 Pressure ulcer of sacral region, unstageable; H40.9 Unspecified glaucoma; E11.42 Type 2 diabetes mellitus with diabetic polyneuropathy; Z66 Do not resuscitate; B96.20 Unspecified Escherichia coli [E. coli] as the cause of diseases classified elsewhere; R33.9 Retention of urine, unspecified; E11.39 Type 2 diabetes mellitus with other diabetic ophthalmic complication; H42 Glaucoma in diseases classified elsewhere; H91.90 Unspecified hearing loss, unspecified ear; Z88.0 Allergy status to penicillin; Z92.21 Personal history of antineoplastic chemotherapy; Z87.891 Personal history of nicotine dependence; Z83.3 Family history of diabetes mellitus; Z68.20 Body mass index [BMI] 20.0-20.9, adult; Z72.89 Other problems related to lifestyle; K59.00 Constipation, unspecified
CPT/HCPCS: 36415; 71046; 74177; 76770; 80048; 80053; 81003; 81015; 82272; 82607; 82728; 82784; 83540; 83550; 83605; 83883; 84155; 84165; 85025; 85027; 85610; 86850; 86900; 86901; 86922; 87040; 87077; 87086; 87106; 87186; 87205; 99222; 99232; 99284; A9270-GY; G8978-GP-CL; G8979-GP-CI; J0696; J1650; J2270; J2405; J8540; P9040; Q9967